=== PATIENT | female | born 2000 | race Caucasian/White ===

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

== ENCOUNTER 2022-03-17 21:57 | Emergency (ER) | payer OTHER ==
--- OUTSIDE RECORDS SUMMARY | 2022-03-17 22:01 | XMS REPORT | Continuity of Care Document ---
:2000 Author Organization [facility] t Address [facility] [place]. [address] [place] [id number] Care Team Providers Name Role Phone MiguelErasto Steven Primary Care Physician Alo Gonsalez Attending Clinician Unavailable Mauricio DUNCAN, Brenda Lara Attending Clinician Unavailable MILAGRO RAY Attending Clinician Unavailable Flor LENS MARKERMilagro Attending Clinician Doctor Unassigned, [place] Attending Clinician Unavailable GO GABBY Attending Clinician Unavailable Green LENS MARKER, Gabby Attending Clinician Ebrahim LENS MARKER, Rania Attending Clinician ADRIANE ENGLAND Attending Clinician Unavailable Jasmin Pyle RN Attending Clinician Unavailable Only, Ang Db Test Attending Clinician Unavailable Stephen Sheikh MD Attending Clinician STEPHEN SHEIKH Attending Clinician Unavailable Adriane England MD Attending Clinician Unknown, Attending Attending Clinician Unavailable Nurse, Akilah Pob Immunization Attending Clinician Unavailable Nadeem Shelby MD Attending Clinician NADEEM SHELBY Attending Clinician Unavailable Nurse, [facility] Attending Clinician Unavailable Monica Lozada MD Attending Clinician RADU KERN Attending Clinician Unavailable AUGUSTUS ETIENNE Attending Clinician Unavailable LV MAST Attending Clinician Unavailable ADRIANE ENGLAND Admitting Clinician Unavailable Alo Gonsalez Admitting Clinician Unavailable Monica Lozada MD Admitting Clinician LV MAST Admitting Clinician Unavailable Payers Payer Name Policy Type Policy Number Effective Date Expiration Date Yanira [employer]UM CHOICE POS [id number] 2020 II 00:00:00 [employer] [place] - [id number] 2018 OUT OF STATE 00:00:00 Problems Condition Condition Condition Status Onset Resolution Last Treating Co mments Source Name Details Category Date Date Treatment Clinician Date Other Other Disease Active Univers depression depression 6-08 it y of 00:00: [address] Obesity Obesity Disease Active Univers (BMI (BMI 4-06 ity of 30-39.9) 30-39.9) 00:00: [place] 00 [facility] Gestationa Gestationa Disease Resolve 2020-08-02 2020-08-02 Univers l l d 2- 00:00:00 14:13:48 [place]y of [place]ens[place] without 00 Me dical significan significan Br anch t t proteinuri proteinuri a, a, Normal Normal Disease Resolve 2020-08-02 2020-08-02 Univers labor labor d 2-07 00:00:00 15:09:02 ity of 00:00: [address] Liveborn Liveborn Disease Resolve 2020-08-02 2020-08-02 Univers , of , of d 2-07 00:00:00 14:13:48 ity of grub[place] grubbs [place]: [place] 00 Me dical born in born in [facility] by vaginal by vaginal delivery delivery 38 weeks 38 weeks Disease Resolve 2020-08-02 2020-08-02 Univers gestation gestation d 7-21 00:00:00 14:13:48 ity of of of 00:00: [place] [facility] High risk High risk Disease Resolve 2020-08-02 2020-08-02 Univers teen teen d 7-21 00:00:00 14:13:48 [place] third 00 Medica l trimester trimester Bran ch Gastroente Gastroente Disease Resolve 2020-06-21 2020-06-21 Univers ritis ritcampbell d 06-15 00:00:00 23:29:09 ity of 00:: [place] 00 Medical [place] Dehydratio Dehydratio Disease Resolve 2020-06-21 2020-06-21 Univers n n d 06-15 00:00:00 23:29:14 ity of 00:: [place] [id number] Medical [place] Allergies, Adverse Reactions, Alerts Allergy Allergy Status Severity Reaction(s) Onset Inactive Treating Comm ents Source Name Type Date Date Clinician No Known DA Active U 2019-0 [facility] No Known DA Active U 2020-0 [facility] Allergie - [facility] 00 [facility] NO KNOWN Drug Active Univers ALLERGIE Class ity of S [facility] Social History Social Habit Start Date Stop Date Quantity Comments Source History SDOH University o f Alcohol Std [place] Medical Drinks Branch History SDWV University o f Alcohol Binge [place] Medic al Branch History SDOH University o f Alcohol Comment [place] Med ical Branch Exposure to 2021-11-04 2021-11-14 Not sure University of SARS-CoV-2 00:00:00 13:53:00 [facility] (event) Branch Alcohol intake 2021-11-14 2021-11-14 Lifetime University of 00:00:00 00:00:00 non-drinker [facility] (finding) Branch Tobacco use and 2021-05-03 2021-05-03 Never used Universit y of exposure 00:00:00 00:00:00 [facility] Tobacco Comment 2021-05-03 2021-05-03 1 cig occasional Uni versity of 00:00:00 00:00:00 [place] [facility] [place] History SDOH 2019-12-08 2019-12-08 1 University o f Alcohol Frequency 00:00:00 00:00:00 [facility] edical [place] Sex Assigned At [birth year] Universit y of 00:00:00 00:00:00 [facility] Branch Smoking Status Start Date Stop Date Source Current some day smoker 2021-05-03 00:00:00 [facility] Never smoker [facility] Branch Medications Ordered Filled Start Stop Current Ordering Indication Dosage Frequency Signature Comments Components Source Medication Medication Date Date Medication? Clinician (SIG) Name Name proMETHazin Yes [id number] 12.5mg Take 1 Univers e 12.5 mg 6-28 tablet by ity o f tablet 00:00: mouth [place] 00 every 6 Medical (six) Branch hours as needed for Nausea and Vomiting (N/V). proMETHazin Yes [id number] 12.5mg Take 1 Univers e 12.5 mg 6-28 tablet by ity o f tablet 00:00: mouth [place] 00 every 6 Medical (six) Branch hours as needed for Nausea and Vomiting (N/V). azithromyci 2021- No [id number] Take 2 Univers n 250 mg 6-28 07-04 tablets by ity of tablet 00:00: 04:59 mouth [place] 00 :00 daily for Medical 1 day, Branch THEN 1 tablet daily for 4 days. azithromyci 2021- No [id number] Take 2 Univers n 250 mg 6-28 07-04 tablets by ity of tablet 00:00: 04:59 mouth [place] 00 :00 daily for Medical 1 day, Branch THEN 1 tablet daily for 4 days. escitalopra Yes [id number] 10mg Take 1 Univers m oxalate 6-08 tablet by ity o f 10 mg 00:00: mouth [place] tablet 00 daily. Medical Branch escitalopra Yes [id number] 10mg Take 1 Univers m oxalate 6-08 tablet by ity o f 10 mg 00:00: mouth [place] tablet 00 daily. Medical Branch escitalopra Yes [id number] 10mg Take 1 Univers m oxalate 6-08 tablet by ity o f 10 mg 00:00: mouth [place] tablet 00 daily. Medical Branch escitalopra Yes [id number] 10mg Take 1 Univers m oxalate 6-08 tablet by ity o f 10 mg 00:00: mouth [place] tablet 00 daily. Medical Branch azithromyci 2020-0 Yes Univer s n 250 mg 6- ity of tablet 00:00: [place] 00 Medical Branch bromphenira 2020-0 Yes Univer s mine-pseudo - ity of ephedrine-D 00:00: [facility] 00 Medical mg/5 mL Branch syrup azithromyci 2020-0 Yes Univer s n 250 mg 6- ity of tablet 00:00: [place] 00 Medical Branch bromphenira 2020-0 Yes Univer s mine-pseudo - ity of ephedrine-D 00:00: [facility] 00 Medical mg/5 mL Branch syrup azithromyci 2020-0 2- No Unive rs n 250 mg 10-20 ity of tablet 00:00: 00:00 [place] 00 :00 Medical Branch bromphenira 2020-0 2- No Unive rs mine-pseudo 10-20- ity of ephedrine-D 00:00: 00:00 [facility] 00 :00 Medical mg/5 mL Branch syrup escitalopra 2020-0 Yes 10mg Take 1 Univers oxalate 4-23 depression tablet by ity of 10 mg 00:00: mouth [place] tablet 00 daily. [facility] Branch Immunizations Ordered Filled Immunization Date Status Comments [facility] e Immunization Name Name SARS-COV-2 COVID-19 2020-09-23 Completed Unive rsity of PFIZER VACCINE 00:00:00 [facility] SARS-COV-2 COVID-19 2020-09-23 Completed Unive rsity of PFIZER VACCINE 00:00:00 [facility] SARS-COV-2 COVID-19 2020-09-23 Completed Unive rsity of PFIZER VACCINE 00:00:00 [facility] SARS-COV-2 COVID-19 2020-09-23 Completed Unive rsity of PFIZER VACCINE 00:00:00 [facility] SARS-COV-2 COVID-19 2020-09-23 Completed Unive rsity of PFIZER VACCINE 00:00:00 [facility] SARS-COV-2 COVID-19 2020-08-31 Completed Unive rsity of PFIZER VACCINE 00:00:00 [place] Medi edilma Branch SARS-COV-2 COVID-19 2020-08-31 Completed Unive rsity of PFIZER VACCINE 00:00:00 [facility] SARS-COV-2 COVID-19 2020-08-31 Completed Unive rsity of PFIZER VACCINE 00:00:00 [facility] SARS-COV-2 COVID-19 2020-08-31 Completed Unive rsity of PFIZER VACCINE 00:00:00 [facility] SARS-COV-2 COVID-19 2020-08-31 Completed Unive rsity of PFIZER VACCINE 00:00:00 [facility] TDAP 2020-04-19 Completed University of 00:00:00 [facility] TDAP 2020-04-19 Completed University of 00:00:00 [facility] TDAP 2020-04-19 Completed University of 00:00:00 [facility] TDAP 2020-04-19 Completed University of 00:00:00 [facility] TDAP 2020-04-19 Completed University of 00:00:00 [facility] Influenza Virus 2020-03-30 Completed Universit y of Vaccine Quad .5 mL 00:00:00 [facility] 6+ MO Branch Influenza Virus 2020-03-30 Completed Universit y of Vaccine [place] .5 mL 00:00:00 [facility] 6+ MO Branch Influenza Virus 2020-03-30 Completed Universit y of Vaccine [place] .5 mL 00:00:00 [facility] 6+ MO Branch Influenza Virus 2020-03-30 Completed Universit y of Vaccine [place] .5 mL 00:00:00 [facility] 6+ MO Branch Influenza Virus 2020-03-30 Completed Universit y of Vaccine [place] .5 mL 00:00:00 [facility] 6+ MO Branch Vital Signs Vital Name Observation Time Observation Value Comments Source Systolic blood 2021-11-14 19:02:00 128 mm[Hg] Univer sity of pressure [facility] Diastolic blood 2021-11-14 19:02:00 85 mm[Hg] Unive rsity of pressure [facility] Heart rate 2021-11-14 19:02:00 84 /min Universi ty [facility] Body temperature 2021-11-14 19:02:00 36.94 Marta [facility] Respiratory rate 2021-11-14 19:02:00 17 /min [facility] Body height 2021-11-14 19:02:00 144.8 cm Universi ty of [place] [facility] Body weight 2021-11-14 19:02:00 79.039 kg Universi ty of [place] [facility] BMI 2021-11-14 19:02:00 37.71 kg/m2 Universi ty [facility] Body mass index 2021-11-14 19:02:00 98.10 % Unive rsity of (BMI) [Percentile] [place] Med ical Per age and sex Branch Oxygen saturation in 2021-11-14 19:02:00 99 /min University of Arterial blood by [place] XD Nutrition edilma Pulse oximetry Branch Systolic blood 2021-10-11 19:21:00 126 mm[Hg] Univer sity of pressure [facility] Diastolic blood 2021-10-11 19:21:00 89 mm[Hg] Unive rsity of pressure [facility] Heart rate 2021-10-11 19:21:00 98 /min [facility] Body temperature 2021-10-11 19:21:00 37.11 Marta [facility] Respiratory rate 2021-10-11 19:21:00 16 /min Univ [facility] Body height 2021-10-11 19:21:00 144.8 cm Universi ty [facility] Medical [place] Body weight 2021-10-11 19:21:00 79.89 kg Universi ty [facility] Medical [place] BMI 2021-10-11 19:21:00 38.11 kg/m2 Universi [facility] Body mass index 2021-10-11 19:21:00 98.22 % Unive rsity of (BMI) [Percentile] [place] Med ical Per age and sex Branch Oxygen saturation in 2021-10-11 19:21:00 97 /min University of Arterial blood by [facility] Pulse oximetry Branch Procedures Procedure Date / Time Performed Performing Clinician Sour e ASSIGNMENT OF BENEFITS 2021-11-14 18:55:13 Doctor Unassigned, No [facility] SARS-COV-2 COVID-19 2020-09-23 15:07:29 Doctor Unassigned, No [facility] V[facility],0.3[facility],IM Name Medical [place] (PFIZER) Plan of Care Planned Activity Planned Date Details Comments Source Future Scheduled 2021-06-[address] [facility] Test 00:00:00 Chlamydia trachomatis Medica l Branch (procedure) [code = [id number]] Future Scheduled 2020-05-17 DTaP,Tdap,and Td Univers ity [facility] Test 00:00:00 Vaccines (2 - Td) Medical Br anch [code = DTaP,Tdap,and Td Vaccines (2 - Td)] Future Scheduled 2018 MENINGOCOCCAL VACCINE Un iversity [facility] Test 00:00:00 (1 - 2-dose series) Medical Branch [code = MENINGOCOCCAL VACCINE (1 - 2-dose series)] Future Scheduled 2014 [facility] (procedure) [code = Medical Branch [id number]] Future Scheduled 2014 Depression screening Uni versity [facility] Test 00:00:00 (procedure) [code = Medical Branch [id number]] Future Scheduled 2013 HPV VACCINES (1 - Univer sity [facility] Test 00:00:00 2-dose series) [code = Medic al Branch HPV VACCINES (1 - 2-dose series)] Future Scheduled 2012 MENINGOCOCCAL B Universi [facility] [facility] Test 00:00:00 VACCINES (1 of 2 - Medical B ranch Risk Bexsero 2-dose series) [code = MENINGOCOCCAL B VACCINES (1 of 2 - Risk Bexsero 2-dose series)] Future Scheduled 2003-08-16 HEPATITIS A VACCINES Uni versity of [place] Test 00:00:00 (1 of 2 - 2-dose Medical Bra [facility] series) [code = HEPATITIS A VACCINES (1 of 2 - 2-dose series)] Future Scheduled 2003-08-16 MMR VACCINES (1 of 2 - U niversity [facility] Test 00:00:00 Standard series) [code Medic al Branch = MMR VACCINES (1 of 2 - Standard series)] Future Scheduled 2003-08-16 VARICELLA VACCINES (1 Un iversity of [place] Test 00:00:00 of 2 - 2-dose Medical Branch childhood series) [code = VARICELLA VACCINES (1 of 2 - 2-dose childhood series)] Future Scheduled 2002 HEPATITIS B VACCINES Uni versity [facility] Test 00:00:00 (1 of 3 - 3-dose Medical Bra [facility] primary series) [code = HEPATITIS B VACCINES (1 of 3 - 3-dose primary series)] Encounters Start End Encounter Admission Attending Care Care Encounter Source Date/Time Date/Time Type Type Clinicians Facility Department ID 2021-03-18 [facility] ED[facility] [id number] Univers 20:10:05 ity of [facility] 2021-03-18 Outpatient P [facility] ED[facility]IE [id number] Univers 20:03:57 ity of [facility] 2019-11-15 Inpatient EM Wallace, [facility] [id number] [facility] 18:50:00 Alo 50 Woman' s [facility] 2021-11-15 2021-11-15 Telephone EDWAR Martínez [id number] Univers 00:00:00 00:00:00 Brenda THRASHER [id number] i ty of [facility] [id number] [place] as [phone] [facility] 019 [place] 2021-11-14 2021-11-14 Outpatient R FLOR [facility] [id number] Univers 14:00:00 14:29:58 MILAGRO marley o f [facility] 2021-11-14 2021-11-14 Urgent Flor [facility] [id number] Univers 14:00:00 14:20:00 Care [facility] [id number] i ty of [place] [id number] [place] as NEENA?BLEA [phone] [address] MEDICAL OFFICE BUILDING 2021-11-14 2021-11-14 Orders Doctor EDWAR [id number] Univers 00:00:00 00:00:00 Only Unassigned, ANNA MARIE [id number] ity of [place] [facility] 4.2.7.2.686 [place] as [phone] [facility] 009 [place] 2021-10-11 2021-10-11 Outpatient R GO [facility] [id number] Univers 14:20:00 14:44:09 GABBY itluz [facility] 2021-10-11 2021-10-11 Urgent Gabby Stiles [facility] [id number] Univers 14:20:00 14:44:09 Care Arti Montiel [facility] [id number] ity of [place] [id number] [place] as NEENA?BLEA [id number] [address] MEDICAL OFFICE BUILDING 2021-10-11 2021-10-11 Outpatient R GO [facility] [id number] Univers 14:20:00 14:44:09 GABBY ity [facility] 2021-10-11 2021-10-11 Orders Doctor VANN [id number] Univers 00:00:00 00:00:00 Only Unassigned, ANNA MARIE [id number] ity of [place] [facility] 4.2.7.2.686 [place] as [phone] [address] 2021-09-05 2021-09-05 [facility] [id number] Univers 13:00:00 13:00:00 [facility] 2021-06-07 2021-06-07 Telephone EDWAR Pyle [id number] Univers 00:00:00 00:00:00 Jasmin THRASHER [id number] it y of [facility] 4.2.7.2.686 [place] as [id number] [address] 2021-06-05 2021-06-05 Laboratory Only, Ang Db Test [facility] [id number] Univers 14:15:00 14:30:00 Only Aguilar Stephen [facility] [id number] ity of [place] 4.2.7.2.686 [place] as NEENA?BLEA [id number] [address] MEDICAL OFFICE [facility] 2021-06-05 2021-06-05 Outpatient R AGUILAR [facility] [id number] Univers 14:15:00 14:27:42 STEPHEN [facility] 2021-06-05 2021-06-05 [facility] [id number] Univers 14:15:00 14:15:00 [facility] 2021-05-03 2021-05-03 Outpatient R EAGLE [facility] [id number] Univers 15:00:00 15:57:50 ADRIANE ity [facility] 2021-05-03 2021-05-03 Office Ad, [facility] [id number] Univers 15:00:00 15:57:50 Visit Adriane YOUNG [id number] ity [facility] 4.2.7.2.686 [place] PROFESS[place] [phone] Ne dical [facility] 134 Branch BUILDING 2021-05-03 2021-05-03 Outpatient R EAGLE, [facility] [id number] Univers 15:00:00 15:57:50 ADRIANE ity [facility] 2021-04-24 2021-04-24 Outpatient R FLOR [facility] [id number] Univers 15:20:00 18:23:19 MILAGRO marley o [facility] 2021-04-24 2021-04-24 Outpatient R FLOR [facility] [id number] Univers 15:20:00 18:23:19 MILAGRO paigey o [facility] 2021-04-24 2021-04-24 [facility] 1.2.840. [id number] Univers 15:22:18 15:42:18 Care Unknown, Attending HEALTH [id number] ity of [place] 4.2.7.2.686 [place] as NEENA?BLEA [id number] Ne dical KNEY [address] [place] MEDICAL OFFICE BUILDING 2021-04-24 2021-04-24 Orders Doctor EDWAR [id number] Univers 00:00:00 00:00:00 Only Unassigned, ANNA MARIE [id number] ity [place] [facility] 4.2.7.2.686 [place] as [id number] [address] 2020-12-17 2020-12-17 Outpatient R GO [facility] [id number] Univers 11:20:00 11:48:42 GABBY ity [facility] 2020-12-17 2020-12-17 Outpatient Ish STILES [facility] [id number] Univers 11:20:00 11:20:00 GABBY ity [facility] 2020-12-17 2020-12-17 Outpatient R GREEN, [facility] [id number] Univers 10:20:00 10:20:00 GABBY [facility] 2020-12-16 2020-12-16 Outpatient R ADUM, [facility] [id number] Univers 15:30:00 15:30:00 ADRIANE [facility] 2020-10-25 2020-10-25 Outpatient R ADUM, [facility] [id number] Univers 11:00:00 11:00:00 ADRIANE [facility] 2020-10-07 2020-10-07 Outpatient R ADUM, [facility] [id number] Univers 10:00:00 10:00:00 [facility] 2020-09-23 2020-09-23 Outpatient R VIKI, [facility] [id number] Univers 10:00:00 10:00:00 NADEEM [facility] 2020-09-09 2020-09-09 Outpatient R ADUM, [facility] [id number] Univers 10:30:00 10:30:00 [facility] 2020-08-31 2020-08-31 Outpatient [facility] [id number] Univers 10:10:00 10:10:00 [facility] 2020-08-23 2020-08-23 Outpatient R ADUM, [facility] [id number] Univers 13:00:00 13:00:00 ADRIANE [facility] 2020-08-02 2020-08-02 Outpatient R ADUM, [facility] [id number] Univers 08:00:00 08:00:00 ADRIANE [facility] 2020-07-20 2020-07-20 Outpatient R ADUM, [facility] [id number] Univers 16:00:00 16:00:00 [facility] 2020-07-11 2020-07-11 Nurse Nurse, [facility] [id number] 14:07:01 14:40:03 Visit [facility] [place] [id number] [facility] 4.2.7.2.686 Professio [phone] [address] 2020-07-11 2020-07-11 Outpatient R [facility] [id number] Univers 14:00:00 14:00:00 [facility] 2020-06-30 2020-06-30 Telephone Adum, [facility] [id number] 00:00:00 00:00:00 Adriane Molina [place] [id number] [place] 4.2.7.2.686 Professio [id number] [address] 2020-06-26 2020-06-28 Hospital Adchevy, Adriane Molina [facility] [id number] 05:40:00 19:30:00 Encounter Monica Lozada [id number] [place] 4.2.7.2.686 [place] [id number] 2020-06-28 2020-06-28 Outpatient R [facility] [id number] Univers 11:15:00 11:15:00 [facility] 2020-06-21 2020-06-21 Routine Ad, [facility] [id number] 16:04:12 16:59:00 Adriane Molina [place] [id number] Visit [place] 4.2.7.2.686 Professio [id number] [address] 2020-06-21 2020-06-21 Outpatient R AD, [facility] [id number] Univers 16:00:00 16:00:[facility] 2020-06-14 2020-06-14 Routine Ad, [facility] [id number] 16:12:46 17:34:28 Adriane Molina [place] [id number] Visit [place] 4.2.7.2.686 Professio [id number] [address] 2020-06-14 2020-06-14 Outpatient R AD, [facility] [id number] Univers 16:15:00 16:15:00 ADRIANE [facility] 2020-06-01 2020-06-01 Outpatient R ADUM, [facility] [id number] Univers 11:30:00 11:30:00 ADRIANE itluz [facility] 2020-05-31 2020-05-31 Outpatient R EMMETTAN, [facility] [id number] Univers 11:30:00 11:30:00 RADU marley [facility] 2020-05-17 2020-05-17 Outpatient R ADUM, [facility] [id number] Univers 16:00:00 16:00:00 [facility] 2020-05-03 2020-05-03 Outpatient R ADUM, [facility] [id number] Univers 16:15:00 16:15:00 ADRIANE [facility] 2020-04-28 2020-04-28 Outpatient R [facility] [id number] Univers 13:00:00 13:00:00 ity [facility] 2020-04-19 2020-04-19 Outpatient R ADUM, [facility] [id number] Univers 11:00:00 11:00:00 ADRIANE [facility] 2020-04-18 2020-04-18 Outpatient R ADUM, [facility] [id number] Univers 13:00:00 13:00:00 ADRIANE [facility] 2020-03-30 2020-03-30 Outpatient R ADUM, [facility] [id number] Univers 11:30:00 11:30:00 ADRIANE [facility] 2020-03-03 2020-03-03 Outpatient R [facility] [id number] Univers 15:00:00 15:00:00 ity [facility] 2020-03-02 2020-03-02 Outpatient R ADUM, [facility] [id number] Univers 13:30:00 13:30:00 ADRIANE [facility] 2020-03-01 2020-03-01 Outpatient R ADUM, [facility] [id number] Univers 16:00:00 16:00:00 ADRIANE [facility] 2020-02-29 2020-02-29 Outpatient R [facility] [id number] Univers 16:15:00 16:15:00 ity [facility] 2020-02-08 2020-02-08 Outpatient P [facility] [id number] [facility] 13:00:00 [facility] 2020-02-03 Outpatient R [facility] [id number] Univers 15:15:00 15:15:00 [facility] 2020-02-02 2020-02-02 Outpatient [facility] [id number] Univers 13:00:00 13:00:00 [facility] 2020-02-01 2020-02-01 Outpatient R LOWELL, [facility] [id number] Univers 15:30:00 15:30:00 [place] [facility] 2020-01-06 2020-01-06 Outpatient R [facility] [id number] Univers 11:30:00 11:30:00 [facility] 2020-01-05 2020-01-05 Outpatient R [facility] [id number] Univers 16:30:00 16:30:00 [facility] 2019-12-09 2019-12-09 Outpatient R [facility] [id number] Univers 14:30:00 14:30:00 [facility] 2019-12-08 2019-12-08 Outpatient [facility] [id number] Univers 14:00:00 14:00:00 [facility] 2019-07-08 2019-07-08 [id number] Univers 00:00:00 00:00:00 LV [facility] 2019-06-22 2019-06-22 [facility] [id number] Univers 15:19:11 23:59:00 [facility] Results Test Description Test Time Test Comments Results Result Comments Source AG HEPATITIS B SURFACE 2019-11-16 14:32:00 Test Item Value Reference Range Interpretation Comme nts AG HEPATITIS B SURFACE (test code = HBSAG) NONREACTIVE NONREACTIVE AB HEPATITIS C [id number] 14:32:00 Test Item Value Reference Range Interpretation Comments AB HEPATITIS C (test code = NONREACTIVE NONREACTIVE HCVAB) SIGNAL TO CUTOFF (test code = <0.02 <0.80 N CUTOFF) AB [id number] 14:32:00 Test Item Value Reference Range Interpretation Comments AB TREPONEMA (test code = TREPAB) NONREACTIVE NONREACTIVE AG HEPATITIS B [id number] 13:39:00 Test Item Value Reference Range Interpretation Comments AG HEPATITIS B SURFACE (test code NONREACTIVE NONREACTIVE = HBSAG) AB HEPATITIS C [id number] 13:39:00 Test Item Value Reference Range Interpretation Comments AB HEPATITIS C (test code = HCVAB) NONREACTIVE SIGNAL TO CUTOFF (test code = CUTOFF) <0.80 AB [id number] 13:39:00 Test Item Value Reference Range Interpretation Comments AB TREPONEMA (test code = TREPAB) NONREACTIVE NONREACTIVE URINALYSIS [id number] 13:33:00 Test Item Value Reference Range Interpretation [...] = MUCU) RARE NONE SEEN CBC W/AUTO [id number] 13:03:00 Test Item Value Reference Range Interpretation [...] code = PLTMR) - MRI PELVIS W/O [id number] 21:41:00 Patient Name: RAAD BERKOWITZ Unit No: [id number] EXAMS: CPT CODE: [id number] MRI PELVIS W/O CONTRAST [id number] PROCEDURE: MRI ABDOMEN WITHOUT CONTRAST INDICATION: 19-year-old [...] regional inflammatory change. The visualized bowel is otherwise unremarkable. There is no free intraperitoneal fluid or focal fluid collection. Examination ultrasound for survey of the upper abdominal viscera. Visualized portions of the liver, gallbladder, pancreas, spleen and kidneys are unremarkable. There is no hydronephrosis or perinephric fluid collection. Examination not designed for survey of the gravid uterus. Circumscribed fluid collection in the endometrial cavity compatible with 1st trimester intrauterine . Cervix appears closed. The right ovary measures 2.2 x 1.7 x 1.8 cm. Normal morphology with small follicles. The left ovary measures 2.5 x 2.1 x 1.9 cm. Probable corpus sodium within substance of the ovary to be correlated with sonographic findings. Additional comments:No free intraperitoneal fluid. IMPRESSION: 1. No MRI evidence for appendicitis. 2. No acute abnormality demonstrated to account for the patient's symptoms. SL: LADY at 214 Reported and signed by: Saqib Hendirckson MD CC: Alo Razo Technologist: Hailey Silva, RT,MR,CT Trnscrbd D/ (2140) Min Orig Print D/T: S: 11/15/2019 (2143) [facility] NAME: WOORAAD CARMENZA Radiology Department PHYS: Alo Hamm [address] : 2000 AGE: 19 SEX: F [place], [place] [address] LOC: [id number] PHONE #: [phone] EXAM DATE: 11/15/2019 STATUS: ADM IN FAX #: [phone] RAD NO: Page 1 Signed Report
--- NOTE | 2022-03-17 22:11 | ER ---
Nurse's Notes [facility] Name: Edson Juarez Age: 21 yrs Sex: Female : 2000 Arrival Date: 03/17/2022 Time: 22:00 Bed Waiting Private MD: Diagnosis: Presentation: 03/17 22:05 Chief complaint: Patient states: "I have always had back pain, but I have never gone to tw the doctor for it. It hurts worse since they gave me an epidural in June of 2020. Today the pain was so bad that I felt nauseous.". Coronavirus screen: Vaccine status: Patient reports receiving the 2nd dose of the covid vaccine. [employer]. Ebola Screen: Patient negative for fever greater than or equal to 101.5 degrees Fahrenheit, and additional compatible Ebola Virus Disease symptoms Patient denies exposure to infectious person. Patient denies travel to an Ebola-affected area in the 21 days before illness onset. Initial Sepsis Screen: Does the patient meet any 2 criteria? No. Patient's initial sepsis screen is negative. Does the patient have a suspected source of infection? No. Patient's initial sepsis screen is negative. Risk Assessment: Do you want to hurt yourself or someone else? Patient reports no desire to harm self or others. Onset of symptoms is unknown. 22:05 Method Of Arrival: Ambulatory tw5 22:05 Acuity: JOSE F 4 tw5 Triage Assessment: 22:07 General: Appears uncomfortable, Behavior is calm, cooperative. Pain: Pain at worst was tw5 10 out of 10 on a pain scale. Musculoskeletal: Range of motion: intact in all extremities. 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 - Social history:: Smoking status: Patient reports the use of cigarette tobacco products, denies chronic smoking, but will smoke occasionally, Reported history of juuling and/or vaping. Assessment: 22:09 General: Reports "I think I am just going to put a heating pad and maybe come back tw5 tomorrow. I cannot wait for a room.". Vital Signs: 22:05 BP 125 / 79; Pulse 77; Resp 18; Temp 98.5; Pulse Ox 100% ; Weight 74.84 kg; Height 4 tw5 ft. 10 in. (147.32 cm); Pain 4/10; 22:05 Body Mass Index 34.48 (74.84 kg, 147.32 cm) tw5 ED Course: 22:00 Patient arrived in ED. bp1 22:07 Triage completed. tw5 22:07 Arm band placed on. tw5 Administered Medications: No medications were administered Outcome: 22:10 Patient left the ED. tw5 Signatures: Milagro Alexander bp1 Kiana Salcedo tw5
[2022-03-17 22:34] VITALS: BP 125/79; TEMP 98.5; O2SAT 100
== END 2022-03-17 22:10 | disposition left against medical advice (07) ==
LOC: ER 21:57
DX: Z53.21 Procedure and treatment not carried out due to patient leaving prior to being seen by health care provider (principal)
CPT/HCPCS: 99281

== ENCOUNTER 2022-03-18 11:30 | Emergency (ER) | payer OTHER ==
--- OUTSIDE RECORDS SUMMARY | 2022-03-18 11:37 | XMS REPORT | Continuity of Care Document ---
:2000 Author Organization [facility] t Address [facility] [place]. [address] [place] [id number] Care Team Providers Name Role Phone MiguelErasto Steven Primary Care Physician Alo Gonsalez Attending Clinician Unavailable Mauricio DUNCAN, Brenda Lara Attending Clinician Unavailable MILAGRO RAY Attending Clinician Unavailable Flor SEED CLEANING MANAGERMilagro Attending Clinician Doctor Unassigned, [place] Attending Clinician Unavailable GO GABBY Attending Clinician Unavailable Green SEED CLEANING MANAGER, Gabby Attending Clinician Ebrahim SEED CLEANING MANAGER, Rania Attending Clinician ADRIANE ENGLAND Attending Clinician [...] Date Expiration Date Yanira 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 CHOICE POS [id number] 2020 II 00:00:00 [employer] [place] - [id number] 2018 OUT OF STATE 00:00:00 Problems Condition Condition Condition Status Onset Resolution Last Treating Co mments Source Name Details Category Date Date Treatment Clinician Date Other Other Disease Active Univers depression depression 6-08 it y of 00:00: [address] Obesity Obesity Disease Active Univers (BMI (BMI 4-06 ity of 30-39.9) 30-39.9) 00:00: [place] 00 [facility] Gestationa Gestationa Disease Resolve 2020-08-02 2020-08-02 Univers l l d 2- 00:00:00 14:13:48 ity of hypertens[place]ens[place] without 00 Me dical significan significan Br anch t t proteinuri proteinuri a, a, Normal Normal Disease Resolve 2020-08-02 2020-08-02 Univers labor labor d 2-07 00:00:00 15:09:02 ity of 00:00: [address] Liveborn Liveborn Disease Resolve 2020-08-02 2020-08-02 Univers , of , of d 2-07 00:00:00 14:13:48 ity of grubbs grubbs 00:00: [place] , 00 Me dical born in born in [facility] by vaginal by vaginal delivery delivery 38 weeks 38 weeks Disease Resolve 2020-08-02 2020-08-02 Univers gestation gestation d 7-21 00:00:00 14:13:48 ity of of of 00:00: [place] 00 [facility] High risk High risk Disease Resolve 2020-08-02 2020-08-02 Univers teen teen d 7-21 00:00:00 14:13:48 [place] third 00 Medica l trimester trimester Bran ch Gastroente Gastroente Disease Resolve 2020-06-21 2020-06-21 Univers ritis ritcampbell d 06-15 00:00:00 23:29:09 ity of 00:: [place] 00 [place] Dehydratio Dehydratio Disease Resolve 2020-06-21 2020-06-21 Univers n n d 06-15 00:00:00 23:29:14 ity of 00:: [place] [id number] Medical [place] Allergies, Adverse Reactions, Alerts Allergy Allergy Status Severity Reaction(s) Onset Inactive Treating Comm ents Source Name Type Date Date Clinician No Known DA Active U 2019-0 [facility] No Known DA Active U 2020-0 [facility] Allergie - [facility] 00:[facility]: [facility] 00 [facility] NO KNOWN Drug Active Univers ALLERGIE Class ity of S [facility] Social History Social Habit Start Date Stop Date Quantity Comments Source History SDOH University o f Alcohol Std [place] Medical Drinks Branch History SDPA University o f Alcohol Binge [place] Medic al Branch History SDOH University o f Alcohol Comment [place] Med ical Branch Exposure to 2021-11-04 2021-11-14 Not sure University of SARS-CoV-2 00:00:00 13:53:00 [facility] (event) Branch Alcohol intake 2021-11-14 2021-11-14 Lifetime University of 00:00:00 00:00:00 non-drinker [facility] (finding) Branch Tobacco use and 2021-05-03 2021-05-03 Never used Universit y of exposure 00:00:00 00:00:00 [facility] Tobacco Comment 2021-05-03 2021-05-03 1 cig occasional Uni versity of 00:00:00 00:00:00 [place] History SDOH 2019-12-08 2019-12-08 1 University o f Alcohol Frequency 00:00:00 00:00:00 [facility] edical [place] Sex Assigned At [birth year] Universit y of 00:00:00 00:00:00 [facility] Branch Smoking Status Start Date Stop Date Source Current some day smoker 2021-05-03 00:00:00 [facility] Never smoker [facility] Branch Medications Ordered Filled Start Stop Current Ordering Indication Dosage Frequency Signature Comments Components Source Medication Medication Date Date Medication? Clinician (SIG) Name Name proMETHazin Yes [id number] 12.5mg Take 1 Univers e 12.5 mg 6-28 tablet by ity o f tablet 00:00: mouth [place] 00 every 6 Medical (six) Branch hours as needed for Nausea and Vomiting (N/V). proMETHazin Yes [id number] 12.5mg Take 1 Univers e 12.5 mg 6-28 tablet by ity o f tablet 00:00: mouth [place] 00 every 6 Medical (six) Branch hours as needed for Nausea and Vomiting (N/V). azithromyci 2021- No [id number] Take 2 Univers n 250 mg 6-28 07-04 tablets by ity of tablet 00:00: 04:59 mouth [place] 00 :00 daily for Medical 1 day, Branch THEN 1 tablet daily for 4 days. azithromyci 2021- No [id number] Take 2 Univers n 250 mg 6-28 07-04 tablets by ity of tablet 00:00: 04:59 mouth [place] 00 :00 daily for Medical 1 day, Branch THEN 1 tablet daily for 4 days. escitalopra Yes [id number] 10mg Take 1 Univers m oxalate 6-08 tablet by ity o f 10 mg 00:00: mouth [place] tablet 00 daily. Medical Branch escitalopra Yes [id number] 10mg Take 1 Univers m oxalate 6-08 tablet by ity o f 10 mg 00:00: mouth [place] tablet 00 daily. Medical Branch escitalopra Yes [id number] 10mg Take 1 Univers m oxalate 6-08 tablet by ity o f 10 mg 00:00: mouth [place] tablet 00 daily. Medical Branch escitalopra Yes [id number] 10mg Take 1 Univers m oxalate 6-08 tablet by ity o f 10 mg 00:00: mouth [place] tablet 00 daily. Medical Branch azithromyci 2020-0 Yes Univer s n 250 mg 6- ity of tablet 00:00: [place] 00 Medical Branch bromphenira 2020-0 Yes Univer s mine-pseudo - ity of ephedrine-D 00:00: [facility] 00 Medical mg/5 mL Branch syrup azithromyci 2020-0 Yes Univer s n 250 mg 6- ity of tablet 00:00: [place] 00 Medical Branch bromphenira 2020-0 Yes Univer s mine-pseudo - ity of ephedrine-D 00:00: [facility] 00 Medical mg/5 mL Branch syrup azithromyci 2020-0 2- No Unive rs n 250 mg 10-20 ity of tablet 00:00: 00:00 [place] 00 :00 Medical Branch bromphenira 2020-0 2- No Unive rs mine-pseudo 10-20- ity of ephedrine-D 00:00: 00:00 [facility] 00 :00 Medical mg/5 mL Branch syrup escitalopra 2020-0 Yes 10mg Take 1 Univers oxalate 4-23 depression tablet by ity of 10 mg 00:00: mouth [place] tablet 00 daily. [facility] Branch Immunizations Ordered Filled Immunization Date Status Comments [facility] e Immunization Name Name SARS-COV-2 COVID-19 2020-09-23 Completed Unive rsity of PFIZER VACCINE 00:00:00 [facility] SARS-COV-2 COVID-19 2020-09-23 Completed Unive rsity of PFIZER VACCINE 00:00:00 [facility] SARS-COV-2 COVID-19 2020-09-23 Completed Unive rsity of PFIZER VACCINE 00:00:00 [facility] SARS-COV-2 COVID-19 2020-09-23 Completed Unive rsity of PFIZER VACCINE 00:00:00 [facility] SARS-COV-2 COVID-19 2020-09-23 Completed Unive rsity of PFIZER VACCINE 00:00:00 [facility] SARS-COV-2 COVID-19 2020-08-31 Completed Unive rsity of PFIZER VACCINE 00:00:00 [place] Medi edilma Branch SARS-COV-2 COVID-19 2020-08-31 Completed Unive rsity of PFIZER VACCINE 00:00:00 [facility] SARS-COV-2 COVID-19 2020-08-31 Completed Unive rsity of PFIZER VACCINE 00:00:00 [facility] SARS-COV-2 COVID-19 2020-08-31 Completed Unive rsity of PFIZER VACCINE 00:00:00 [facility] SARS-COV-2 COVID-19 2020-08-31 Completed Unive rsity of PFIZER VACCINE 00:00:00 [facility] TDAP 2020-04-19 Completed University of 00:00:00 [facility] TDAP 2020-04-19 Completed University of 00:00:00 [facility] TDAP 2020-04-19 Completed University of 00:00:00 [facility] TDAP 2020-04-19 Completed University of 00:00:00 [facility] TDAP 2020-04-19 Completed University of 00:00:00 [facility] Influenza Virus 2020-03-30 Completed Universit y of Vaccine Quad .5 mL 00:00:00 [facility] 6+ MO Branch Influenza Virus 2020-03-30 Completed Universit y of Vaccine Quad .5 mL 00:00:00 [facility] 6+ MO Branch Influenza Virus 2020-03-30 Completed Universit y of Vaccine Quad .5 mL 00:00:00 [facility] 6+ MO Branch Influenza Virus 2020-03-30 Completed Universit y of Vaccine [place] .5 mL 00:00:00 [facility] 6+ MO Branch Influenza Virus 2020-03-30 Completed Universit y of Vaccine Quad .5 mL 00:00:00 [facility] 6+ MO Branch Vital Signs Vital Name Observation Time Observation Value Comments Source Systolic blood 2021-11-14 19:02:00 128 mm[Hg] Univer sity of pressure [facility] Diastolic blood 2021-11-14 19:02:00 85 mm[Hg] Unive rsity of pressure [facility] Heart rate 2021-11-14 19:02:00 84 /min Universi ty [facility] Body temperature 2021-11-14 19:02:00 36.94 [facility] Respiratory rate 2021-11-14 19:02:00 17 /min [facility] Body height 2021-11-14 19:02:00 144.8 cm Universi ty of [place] [facility] Body weight 2021-11-14 19:02:00 79.039 kg Universi ty of [place] [facility] BMI 2021-11-14 19:02:00 37.71 kg/m2 Universi ty [facility] Body mass index 2021-11-14 19:02:00 98.10 % Unive rsity of (BMI) [Percentile] [place] Med ical Per age and sex Branch Oxygen saturation in 2021-11-14 19:02:00 99 /min University of Arterial blood by [place] MyAGENT edilma Pulse oximetry Branch Systolic blood 2021-10-11 19:21:00 126 mm[Hg] Univer sity of pressure [facility] Diastolic blood 2021-10-11 19:21:00 89 mm[Hg] Unive rsity of pressure [facility] Heart rate 2021-10-11 19:21:00 98 /min [facility] Body temperature 2021-10-11 19:21:00 37.11 [facility] Respiratory rate 2021-10-11 19:21:00 16 /min Univ [facility] Body height 2021-10-11 19:21:00 144.8 cm Universi ty [facility] Medical [place] Body weight 2021-10-11 19:21:00 79.89 kg Universi ty [facility] [place] BMI 2021-10-11 19:21:00 38.11 kg/m2 Universi [facility] Body mass index 2021-10-11 19:21:00 98.22 % Unive rsity of (BMI) [Percentile] [place] Med ical Per age and sex Branch Oxygen saturation in 2021-10-11 19:21:00 97 /min University of Arterial blood by [facility] Pulse oximetry Branch Procedures Procedure Date / Time Performed Performing Clinician Sour e ASSIGNMENT OF BENEFITS 2021-11-14 18:55:13 Doctor Unassigned, No [facility] SARS-COV-2 COVID-19 2020-09-23 15:07:29 Doctor Unassigned, No [facility] VACCINE,0.3ML,IM Name [place] (PFIZER) Plan of Care Planned Activity Planned Date Details Comments Source Future Scheduled 2021-06-21 Screening for [facility] Test 00:00:00 Chlamydia trachomatis Medica l Branch (procedure) [code = [id number]] Future Scheduled 2020-05-17 DTaP,Tdap,and Td Univers ity [facility] Test 00:00:00 Vaccines (2 - Td) Medical Br anch [code = DTaP,Tdap,and Td Vaccines (2 - Td)] Future Scheduled 2018 MENINGOCOCCAL VACCINE Un iversity [facility] Test 00:00:00 (1 - 2-dose series) Medical Branch [code = MENINGOCOCCAL VACCINE (1 - 2-dose series)] Future Scheduled 2014 [facility] (procedure) [code = Medical Branch [id number]] Future Scheduled 2014 Depression screening Uni versity [facility] Test 00:00:00 (procedure) [code = Medical Branch [id number]] Future Scheduled 2013 HPV VACCINES (1 - Univer sity [facility] Test 00:00:00 2-dose series) [code = Medic al Branch HPV VACCINES (1 - 2-dose series)] Future Scheduled 2012 MENINGOCOCCAL B Universi [facility] Test 00:00:00 VACCINES (1 of 2 - Medical B ranch Risk Bexsero 2-dose series) [code = MENINGOCOCCAL B VACCINES (1 of 2 - Risk Bexsero 2-dose series)] Future Scheduled 2003-08-16 HEPATITIS A VACCINES Uni versity of [place] Test 00:00:00 (1 of 2 - 2-dose Medical Bra [facility] series) [code = HEPATITIS A VACCINES (1 of 2 - 2-dose series)] Future Scheduled 2003-08-16 MMR VACCINES (1 of 2 - U niversity [facility] Test 00:00:00 Standard series) [code Medic al Branch = MMR VACCINES (1 of 2 - Standard series)] Future Scheduled 2003-08-16 VARICELLA VACCINES (1 Un iversity of [place] Test 00:00:00 of 2 - 2-dose Medical Branch childhood series) [code = VARICELLA VACCINES (1 of 2 - 2-dose childhood series)] Future Scheduled 2002 HEPATITIS B VACCINES Uni versity [facility] Test 00:00:00 (1 of 3 - 3-dose Medical Bra [facility] primary series) [code = HEPATITIS B VACCINES (1 of 3 - 3-dose primary series)] Encounters Start End Encounter Admission Attending Care Care Encounter Source Date/Time Date/Time Type Type Clinicians Facility Department ID 2021-03-18 Outpatient P [facility] EDDIE [id number] Univers 20:10:05 ity of [facility] 2021-03-18 Outpatient P [facility] EDDIE [id number] Univers 20:03:57 ity of [facility] 2019-11-15 Inpatient EM Wallace, [facility] [id number] [facility] 18:50:00 Alo 50 Woman' s [facility] 2021-11-15 2021-11-15 Telephone EDWAR Martínez [id number] Univers 00:00:00 00:00:00 Brenda THRASHER [id number] i ty of [facility] [id number] [place] as [phone] [facility] 019 [place] 2021-11-14 2021-11-14 Outpatient R FLOR [facility] [id number] Univers 14:00:00 14:29:58 MILAGRO marley o f [facility] 2021-11-14 2021-11-14 Urgent Flor [facility] [id number] Univers 14:00:00 14:20:00 Care [facility] [id number] i ty of [place] 4.2.7.2.686 [place] as NEENA?BLEA [phone] [address] MEDICAL OFFICE BUILDING 2021-11-14 2021-11-14 Orders Doctor EDWAR [id number] Univers 00:00:00 00:00:00 Only Unassigned, ANNA MARIE [id number] ity of [place] [facility] [id number] [place] as [id number] [facility] 009 [place] 2021-10-11 2021-10-11 Outpatient R GO [facility] [id number] Univers 14:20:00 14:44:[address] [facility] 2021-10-11 2021-10-11 Urgent Gabby Stiles [facility] [id number] Univers 14:20:00 14:44:09 Care Arti Montiel [facility] [id number] ity of [place] [id number] [place] as NEENA?BLEA [id number] [address] MEDICAL OFFICE BUILDING 2021-10-11 2021-10-11 Outpatient R GO [facility] [id number] Univers 14:20:00 14:44:[address] [facility] 2021-10-11 2021-10-11 Orders Doctor VANN [id number] Univers 00:00:00 00:00:00 Only Unassigned, ANNA MARIE [id number] ity of [place] [facility] 4.2.7.2.686 [place] as [id number] [address] 2021-09-05 2021-09-05 [facility] [id number] Univers 13:00:00 13:00:00 [facility] 2021-06-07 2021-06-07 Telephone EDWAR Pyle [id number] Univers 00:00:00 00:00:00 Jasmin THRASHER [id number] it y of [facility] 4.2.7.2.686 [place] as [id number] [address] 2021-06-05 2021-06-05 Laboratory Only, Ang Db Test [facility] 1.2.8 40.114 [id number] Univers 14:15:00 14:30:00 Only Aguilar Stephen [facility] [id number] ity of [place] 4.2.7.2.686 Randall as NEENA?BLEA [id number] [address] MEDICAL OFFICE [facility] 2021-06-05 2021-06-05 Outpatient R AGUILAR [facility] [id number] Univers 14:15:00 14:27:42 STEPHEN [facility] 2021-06-05 2021-06-05 [facility] [id number] Univers 14:15:00 14:15:00 [facility] 2021-05-03 2021-05-03 Outpatient R EAGLE [facility] [id number] Univers 15:00:00 15:57:[address] [facility] 2021-05-03 2021-05-03 Office Ad, [facility] [id number] Univers 15:00:00 15:57:50 Visit Adriane YOUNG [id number] ity of [facility] 4.2.7.2.686 [place] PROFESS[place] [id number] Id dical [facility] 134 Branch BUILDING 2021-05-03 2021-05-03 Outpatient R EAGLE, [facility] [id number] Univers 15:00:00 15:57:[address] [facility] 2021-04-24 2021-04-24 Outpatient R FLOR [facility] [id number] Univers 15:20:00 18:23:19 MILAGRO marley o [facility] [place] [facility] 2021-04-24 2021-04-24 Outpatient R FLOR [facility] [id number] Univers 15:20:00 18:23:19 MILAGRO paigey o [facility] [place] [facility] 2021-04-24 2021-04-24 [facility] 1.2.840. [id number] Univers 15:22:18 15:42:18 Care Unknown, Attending HEALTH [id number] ity of [place] 4.2.7.2.686 [place] as NEENA?BLEA [phone] Id dical KNEY [address] [place] MEDICAL OFFICE BUILDING 2021-04-24 2021-04-24 Orders Doctor EDWAR 1.2.840.114 [id number] Univers 00:00:00 00:00:00 Only Unassigned, ANNA MARIE [id number] ity of [place] [facility] [id number] [place] as [id number] [address] 2020-12-17 2020-12-17 Outpatient R GO [facility] [id number] Univers 11:20:00 11:48:[address] [facility] 2020-12-17 2020-12-17 Outpatient Ish STILES [facility] [id number] Univers 11:20:00 11:20:[address] [facility] 2020-12-17 2020-12-17 Outpatient R GREEN, [facility] [id number] Univers 10:20:00 10:20:00 GABBY [facility] 2020-12-16 2020-12-16 Outpatient R ADUM, [facility] [id number] Univers 15:30:00 15:30:00 ADRIANE [facility] 2020-10-25 2020-10-25 Outpatient R ADUM, [facility] [id number] Univers 11:00:00 11:00:00 ADRIANE [facility] 2020-10-07 2020-10-07 Outpatient R ADUM, [facility] [id number] Univers 10:00:00 10:00:00 [facility] 2020-09-23 2020-09-23 Outpatient R VIKI, [facility] [id number] Univers 10:00:00 10:00:00 NADEEM [facility] 2020-09-09 2020-09-09 Outpatient R ADUM, [facility] [id number] Univers 10:30:00 10:30:00 [facility] 2020-08-31 2020-08-31 Outpatient [facility] [id number] Univers 10:10:00 10:10:00 [facility] 2020-08-23 2020-08-23 Outpatient R ADUM, [facility] [id number] Univers 13:00:00 13:00:00 ADRIANE [facility] 2020-08-02 2020-08-02 Outpatient R ADUM, [facility] [id number] Univers 08:00:00 08:00:00 ADRIANE [facility] 2020-07-20 2020-07-20 Outpatient R ADUM, [facility] [id number] Univers 16:00:00 16:00:00 [facility] 2020-07-11 2020-07-11 Nurse Nurse, [facility] [id number] 14:07:01 14:40:03 Visit [facility]'s Serafina [id number] [facility] [id number] Professio [id number] [address] 2020-07-11 2020-07-11 Outpatient R [facility] [id number] Univers 14:00:00 14:00:00 [facility] 2020-06-30 2020-06-30 Telephone Adum, [facility] [id number] 00:00:00 00:00:00 Adriane Molina Serafina [id number] [place] 4.2.7.2.686 Professio [id number] [address] 2020-06-26 2020-06-28 Hospital Adchevy, Adriane Molina [facility] 1.2.840.11 [id number] 05:40:00 19:30:00 Encounter Monica Lozada [id number] [place] 4.2.7.2.686 [place] [id number] 2020-06-28 2020-06-28 Outpatient R [facility] [id number] Univers 11:15:00 11:15:00 [facility] 2020-06-21 2020-06-21 Routine Ad, [facility] [id number] 16:04:12 16:59:00 Adriane Molina Hannah [id number] Visit [place] 4.2.7.2.686 Professio [id number] [address] 2020-06-21 2020-06-21 Outpatient R AD, [facility] [id number] Univers 16:00:00 16:00:00 [facility] 2020-06-14 2020-06-14 Routine Ad, [facility] [id number] 16:12:46 17:34:28 Adriane Molina Serafina [id number] Visit [place] 4.2.7.2.686 Professio [id number] [address] 2020-06-14 2020-06-14 Outpatient R AD, [facility] [id number] Univers 16:15:00 16:15:00 ADRIANE [facility] 2020-06-01 2020-06-01 Outpatient R ADUM, [facility] [id number] Univers 11:30:00 11:30:[address] [facility] 2020-05-31 2020-05-31 Outpatient R EMMETTAN, [facility] [id number] Univers 11:30:00 11:30:[address] [facility] 2020-05-17 2020-05-17 Outpatient R ADUM, [facility] [id number] Univers 16:00:00 16:00:00 [facility] 2020-05-03 2020-05-03 Outpatient R ADUM, [facility] [id number] Univers 16:15:00 16:15:00 ADRIANE [facility] 2020-04-28 2020-04-28 Outpatient R [facility] [id number] Univers 13:00:00 13:00:[address] [facility] 2020-04-19 2020-04-19 Outpatient R ADUM, [facility] [id number] Univers 11:00:00 11:00:00 ADRIANE [facility] 2020-04-18 2020-04-18 Outpatient R ADUM, [facility] [id number] Univers 13:00:00 13:00:00 ADRIANE [facility] 2020-03-30 2020-03-30 Outpatient R ADUM, [facility] [id number] Univers 11:30:00 11:30:00 ADRIANE [facility] 2020-03-03 2020-03-03 Outpatient R [facility] [id number] Univers 15:00:00 15:00:[address] [facility] 2020-03-02 2020-03-02 Outpatient R ADUM, [facility] [id number] Univers 13:30:00 13:30:00 DARIANE [facility] 2020-03-01 2020-03-01 Outpatient R ADUM, [facility] [id number] Univers 16:00:00 16:00:00 ADRIANE [facility] 2020-02-29 2020-02-29 Outpatient R [facility] [id number] Univers 16:15:00 16:15:[address] [facility] 2020-02-08 2020-02-08 Outpatient P [facility] [id number] Univers 13:00:00 [facility] 2020-02-03 2020-02-03 Outpatient R [facility] [id number] Univers 15:15:00 15:15:00 [facility] 2020-02-02 2020-02-02 [facility] [id number] Univers 13:00:00 13:00:00 [facility] 2020-02-01 2020-02-01 Outpatient R LOWELL, [facility] [id number] Univers 15:30:00 15:30:00 [facility] 2020-01-06 2020-01-06 Outpatient R [facility] [id number] Univers 11:30:00 11:30:00 [facility] 2020-01-05 2020-01-05 [facility] [id number] Univers 16:30:00 16:30:00 [facility] 2019-12-09 2019-12-09 Outpatient R [facility] [id number] Univers 14:30:00 14:30:00 [facility] 2019-12-08 2019-12-08 [facility] [id number] Univers 14:00:00 14:00:00 [facility] 2019-07-08 2019-07-08 [facility] [id number] Univers 00:00:00 00:00:00 [facility] 2019-06-22 2019-06-22 [facility] [id number] Univers 15:19:11 23:59:00 [facility] Results Test Description Test Time Test Comments Results Result Comments Source AG HEPATITIS B SURFACE 2019-11-16 14:32:00 Test Item Value Reference Range Interpretation Comme nts AG HEPATITIS B SURFACE (test code = HBSAG) NONREACTIVE NONREACTIVE AB HEPATITIS C [id number] 14:32:00 Test Item Value Reference Range Interpretation Comments AB HEPATITIS C (test code = NONREACTIVE NONREACTIVE HCVAB) SIGNAL TO CUTOFF (test code = <0.02 <0.80 N CUTOFF) AB [id number] 14:32:00 Test Item Value Reference Range Interpretation Comments AB TREPONEMA (test code = TREPAB) NONREACTIVE NONREACTIVE AG HEPATITIS B [id number] 13:39:00 Test Item Value Reference Range Interpretation Comments AG HEPATITIS B SURFACE (test code NONREACTIVE NONREACTIVE = HBSAG) AB HEPATITIS C [id number] 13:39:00 Test Item Value Reference Range Interpretation Comments AB HEPATITIS C (test code = HCVAB) NONREACTIVE SIGNAL TO CUTOFF (test code = CUTOFF) <0.80 AB [id number] 13:39:00 Test Item Value Reference Range Interpretation Comments AB TREPONEMA (test code = TREPAB) NONREACTIVE NONREACTIVE URINALYSIS [id number] 13:33:00 Test Item Value Reference Range Interpretation [...] = MUCU) RARE NONE SEEN CBC W/AUTO [id number] 13:03:00 Test Item Value Reference Range Interpretation [...] code = PLTMR) - MRI PELVIS W/O [id number] 21:41:00 Patient Name: RAAD BERKOWITZ Unit No: [id number] EXAMS: CPT CODE: [id number] MRI PELVIS W/O CONTRAST [id number] PROCEDURE: MRI ABDOMEN WITHOUT CONTRAST INDICATION: 19-year-old [...] at 214 Reported and signed by: Saqib Hendrickson MD CC: Alo Razo Technologist: Hailey Silva, RT,MR,CT Trnscrbd D/ (2140) Min Orig Print D/T: S: 11/15/2019 (2143) [facility] NAME: WOORAAD CARMENZA Radiology Department PHYS: Alo Hamm [address] : 2000 AGE: 19 SEX: F [place], [place] [address] LOC: [id number] PHONE #: [phone] EXAM DATE: 11/15/2019 STATUS: ADM IN FAX #: [phone] RAD NO: Page 1 Signed Report
[2022-03-18 12:45] LABS: Absolute Lymphocytes (CBC) 2.4 K/uL (0.7-4.9); Hematocrit 37.2 % (36.0-45.0); Lymphocytes % 36.8 % (15.3-44.8); MCV 79.6 fL (80-100); RBC Red Blood Cell Count 4.68 M/uL (3.86-4.86)
[2022-03-18] MEDS ORDERED: METHYLPREDNISOLONE 125 MG INJ ONE (12:54)
[2022-03-18] MEDS ORDERED: KETOROLAC 30 MG/ML INJ ONE (12:54)
[2022-03-18 13:03] LABS: Potassium 3.6 mmol/L (3.5-5.1); Troponin High Sensitivity 3.5 pg/mL (<58.9)
[2022-03-18 13:05] LABS: Urine Blood Negative (Negative); Urine Glucose Negative (Negative); Urine Protein Negative (Negative); Urine pH 7.5 (5.0-7.0)
--- NOTE | 2022-03-18 13:40 | RAD REPORT ---
EXAM DESCRIPTION: CTSpine Lumbar Wo Con03/18/2022 1:23 pm CLINICAL HISTORY: Back pain COMPARISON: None TECHNIQUE: Computed axial tomography lumbar spine was obtained with coronal and sagittal reconstruct ion. All CT scans are performed using dose optimization technique as appropriate and may include automated exposure control or mA/KV adjustment according to patient size. FINDINGS: No fracture is seen. No dislocation Slight posterior subluxation L5 on S1 A large disc bulge/herniation not seen. There may be a small left lateral disc herniation L4-5 Spinal stenosis is not noted. IMPRESSION: Negative for a lumbar fracture. Possible small left lateral disc herniation L4-5 If patient continues to have symptoms to suggest a significant disc herniation MRI would be recommend ed
--- NOTE | 2022-03-18 14:24 | RAD REPORT ---
EXAM DESCRIPTION: [place] Single View03/18/2022 2:18 pm CLINICAL HISTORY: Chest pain COMPARISON: none FINDINGS: The lungs appear clear of acute infiltrate. The heart is normal size IMPRESSION: No acute abnormalities displayed
--- NOTE | 2022-03-18 14:42 | EDPHYS ---
Physician Documentation [facility] Name: Edson Juarez Age: 21 yrs Sex: Female : 2000 Arrival Date: 03/18/2022 Time: 11:32 Bed 18 Private MD: Erasto Collins W ED Physician Deepak Jerome HPI: 03/18 17:18 This 21 yrs old Female presents to ER via Ambulatory with complaints of Back Pain. kdr 17:18 Patient states that she has had back pain persistently since she was about 12 years kdr old. She recently obtained insurance and her pain has persisted and perhaps worsened a little. She states that her pain is particularly more noticeable and problematic when she is standing more often. She has a new job in which she does more standing. She denies pain radiating far down her legs perhaps only to her lateral aspect of her thighs bilaterally. She denies any change in her bowel or bladder habits. She denies loss of control of her bowel or bladder symptoms well. She also denies any sensation change in her perineum.. Onset: The symptoms/episode began/occurred 10 year(s) ago, at an unknown time. Severity of symptoms: At their worst the symptoms were mild moderate just prior to arrival, in the emergency department the symptoms are unchanged. The patient has not experienced similar symptoms in the past. The patient has not recently seen a physician. Historical: - Allergies: 11:47 No Known Allergies; ll1 - PMHx: 11:47 None; ll1 - PSHx: 11:47 None; ll1 - Immunization history:: Client reports receiving the 2nd dose of the Covid vaccine. - Social history:: Smoking status: Patient reports the use of cigarette tobacco products, denies chronic smoking, but will smoke occasionally, Reported history of juuling and/or vaping. ROS: 17:18 Constitutional: Negative for fever, chills, and weight loss, Eyes: Negative for injury, kdr pain, redness, and discharge, ENT: Negative for injury, pain, and discharge, Neck: Negative for injury, pain, and swelling, Cardiovascular: Negative for chest pain, palpitations, and edema, Respiratory: Negative for shortness of breath, cough, wheezing, and pleuritic chest pain, Abdomen/GI: Negative for abdominal pain, nausea, vomiting, diarrhea, and constipation, : Negative for injury, bleeding, discharge, and swelling, MS/Extremity: Negative for injury and deformity, Skin: Negative for injury, rash, and discoloration, Neuro: Negative for headache, weakness, numbness, tingling, and seizure activity. Psych: Negative for depression, anxiety, suicide ideation, homicidal ideation, and hallucinations, Allergy/Immunology: Negative for hives, rash, and allergies, Endocrine: Negative for neck swelling, polydipsia, polyuria, polyphagia, and marked weight changes, Hematologic/Lymphatic: Negative for swollen nodes, abnormal bleeding, and unusual bruising. 17:18 Back: Positive for pain at rest, pain with movement, of the low back area. Exam: 17:18 Constitutional: This is a well developed, well nourished patient who is awake, alert, kdr and in no acute distress. Head/Face: Normocephalic, atraumatic. Eyes: Pupils equal round and reactive to light, extra-ocular motions intact. Lids and lashes normal. Conjunctiva and sclera are non-icteric and not injected. Cornea within normal limits. Periorbital areas with no swelling, redness, or edema. Neck: Trachea midline, no thyromegaly or masses palpated, and no cervical lymphadenopathy. Supple, full range of motion without nuchal rigidity, or vertebral point tenderness. No Meningismus. Chest/axilla: Normal chest wall appearance and motion. Nontender with no deformity. No lesions are appreciated. Cardiovascular: Regular rate and rhythm with a normal S1 and S2. No gallops, murmurs, or rubs. Normal PMI, no JVD. No pulse deficits. Respiratory: Lungs have equal breath sounds bilaterally, clear to auscultation and percussion. No rales, rhonchi or wheezes noted. No increased work of breathing, no retractions or nasal flaring. Abdomen/GI: Soft, non-tender, with normal bowel sounds. No distension or tympany. No guarding or rebound. No evidence of tenderness throughout. Skin: Warm, dry with normal turgor. Normal color with no rashes, no lesions, and no evidence of cellulitis. MS/ Extremity: Pulses equal, no cyanosis. Neurovascular intact. Full, normal range of motion. Neuro: Awake and alert, GCS 15, oriented to person, place, time, and situation. Cranial nerves II-XII grossly intact. Motor strength 5/5 in all extremities. Sensory grossly intact. Cerebellar exam normal. Normal gait. Psych: Awake, alert, with orientation to person, place and time. Behavior, mood, and affect are within normal limits. 17:18 Back: ROM is normal, normal spinal alignment noted, CVA tenderness, is absent, muscle spasm, is not present. Vital Signs: 11:47 BP 141 / 94; Pulse 83; Resp 16; Temp 97.5; Pulse Ox 98% ; Weight 74.84 kg; Height 4 ft. ll1 10 in. (147.32 cm); Pain 4/10; 13:00 BP 124 / 83; Pulse 70; Resp 16; Pulse Ox 100% on R/A; eh3 14:00 Pulse 64; Resp 17; Pulse Ox 100% on R/A; eh3 11:47 Body Mass Index 34.48 (74.84 kg, 147.32 cm) ll1 MDM: 14:41 Patient medically screened. kdr 17:18 Data reviewed: vital signs, nurses notes, lab test result(s), radiologic studies. kdr Counseling: I had a detailed discussion with the patient and/or guardian regarding: the historical points, exam findings, and any diagnostic results supporting the discharge/admit diagnosis, lab results, radiology results, the need for outpatient follow up. 03/18 12:31 Order name: Basic Metabolic Panel; Complete Time: 14:40 3 03/18 12:31 Order name: CBC with Diff; Complete Time: 14:40 3 03/18 12:31 Order name: Troponin HS; Complete Time: 14:40 3 03/18 12:31 Order name: XRAY Chest (1 view); Complete Time: 14:40 3 03/18 13:05 Order name: Urine Dipstick-Ancillary; Complete Time: 14:40 EDMS 03/18 13:12 Order name: Urine --Ancillary (enter results); Complete Time: 14:40 eb 03/18 12:31 Order name: EKG; Complete Time: 12:32 3 03/18 12:31 Order name: Cardiac monitoring; Complete Time: 12:31 3 03/18 12:31 Order name: EKG - Nurse/Tech; Complete Time: 12:31 3 03/18 12:31 Order name: IV Saline Lock; Complete Time: 12:31 eh3 03/18 12:31 Order name: Labs collected and sent; Complete Time: 12:31 eh3 03/18 12:40 Order name: CT Lumbar Spine Wo Con; Complete Time: 14:40 kdr 03/18 12:31 Order name: O2 Per Protocol; Complete Time: 12:31 eh3 03/18 12:31 Order name: O2 Sat Monitoring; Complete Time: 12:31 eh3 03/18 12:41 Order name: Urine Test (obtain specimen); Complete Time: 13:09 kdr 03/18 12:41 Order name: Urine Dipstick-Ancillary (obtain specimen); Complete Time: 13:09 kdr Administered Medications: 13:11 Drug: Ketorolac 30 mg Route: IVP; Site: left antecubital; eh3 14:17 Follow up: Response: No adverse reaction eh3 13:11 Drug: SOLU-Medrol (methylPrednisoLONE) 125 mg Route: IVP; Site: left antecubital; eh3 14:16 Follow up: Response: No adverse reaction eh3 Disposition Summary: 03/18/22 14:41 Discharge Ordered Location: Home kdr Problem: an ongoing problem kdr Symptoms: have improved kdr Condition: Stable kdr Diagnosis - Low back pain kdr Followup: kdr - With: Erasto Collins MD - When: 2 - 3 days - Reason: If symptoms return, Further diagnostic work-up, Recheck today's complaints, Continuance of care, Re-evaluation by your physician Discharge Instructions: - Discharge Summary Sheet kdr - Musculoskeletal Pain kdr - Chronic Back Pain, [id number] kdr - Form - Excuse from Work, School, or Physical Activity eh3 Forms: - Medication Reconciliation Form kdr - Thank You Letter kdr Prescriptions: - Ibuprofen 600 mg Oral Tablet - take 1 tablet by ORAL route every 6 hours As needed take with food; 15 tablet; kdr Refills: 0, Product Selection Permitted - Cyclobenzaprine 10 mg Oral Tablet - take 1 tablet by ORAL route every 8 hours As needed; 15 tablet; Refills: 0, kdr Product Selection Permitted - Medrol (Federico) 4 mg Oral Tablets, Dose Pack - take 1 tablet by ORAL route as directed - follow package instructions; 1 kdr packet; Refills: 0, Product Selection Permitted Signatures: Dispatcher [employer] EDMS Rittger, DeepakMD MD meño garcia Lynsay, RN RN ll1 Estefany Israel, DAKOTA RN eh3
--- NOTE | 2022-03-18 14:42 | ER ---
Nurse's Notes [facility] Name: Edson Juarez Age: 21 yrs Sex: Female : 2000 Arrival Date: 03/18/2022 Time: 11:32 Bed 18 Private MD: Erasto Collins W Diagnosis: Low back pain Presentation: 03/18 11:47 Chief complaint: Patient states: Low back pain worse than usual for past two days. ll1 Coronavirus screen: Vaccine status: Patient reports receiving the 2nd dose of the covid vaccine. Client denies travel out of the [place] in the last 14 days. At this time, the client does not indicate any symptoms associated with coronavirus-19. Ebola Screen: Patient denies travel to an Ebola-affected area in the 21 days before illness onset. Initial Sepsis Screen: Does the patient meet any 2 criteria? No. Patient's initial sepsis screen is negative. Does the patient have a suspected source of infection? Yes: Bone or joint infection. Risk Assessment: Do you want to hurt yourself or someone else? Patient reports no desire to harm self or others. Onset of symptoms was March 17, 2022. 11:47 Method Of Arrival: Ambulatory ll1 11:47 Acuity: JOSE F 4 ll1 Triage Assessment: 11:49 General: Appears in no apparent distress. Behavior is cooperative, appropriate for age. ll1 Pain: Complains of pain in back Pain currently is 4 out of 10 on a pain scale. Quality of pain is described as aching, sharp, Aggravated by increased activity, weight bearing. Musculoskeletal: Circulation, motion, and sensation intact. Capillary refill < 3 seconds, Reports pain in back. Historical: - Allergies: 11:47 No Known Allergies; ll1 - PMHx: 11:47 None; ll1 - PSHx: 11:47 None; ll1 - Immunization history:: Client reports receiving the 2nd dose of the Covid vaccine. - Social history:: Smoking status: Patient reports the use of cigarette tobacco products, denies chronic smoking, but will smoke occasionally, Reported history of juuling and/or vaping. Screenin:56 Abuse screen: Denies threats or abuse. Denies injuries from another. Nutritional eh3 screening: No deficits noted. Tuberculosis screening: No symptoms or risk factors identified. Fall Risk None identified. Assessment: 11:56 General: Appears in no apparent distress. uncomfortable, Behavior is calm, cooperative, eh3 appropriate for age. Pain: Complains of pain in lumbar area, left low back and right low back Pain does not radiate. Pain currently is 8 out of 10 on a pain scale. Neuro: Level of Consciousness is awake, alert, obeys commands, Oriented to person, place, time, situation. Cardiovascular: Capillary refill < 3 seconds Patient's skin is warm and dry. Respiratory: Airway is patent Respiratory effort is even, unlabored, Respiratory pattern is regular, symmetrical. GI: No signs and/or symptoms were reported involving the gastrointestinal system. GI: Abdomen is round non-distended, Abd is soft and non tender X 4 quads. : No signs and/or symptoms were reported regarding the genitourinary system. EENT: Derm: No signs and/or symptoms reported regarding the dermatologic system. Musculoskeletal: Range of motion: intact in all extremities. 12:15 Reassessment: HR 160. PT CO chest pain. pt states this has been on going and was told tp1 by personal consultant that it is related to anxiety. pt denies feeling anxious at this time. provider notified. 12:16 Reassessment: HR 100. tp1 12:30 Cardiovascular: Rhythm is sinus arrythmia. tp1 12:54 Reassessment: Patient appears in no apparent distress at this time. Patient and/or tp1 family updated on plan of care and expected duration. Pain level reassessed. Patient is alert, oriented x 3, equal unlabored respirations, skin warm/dry/pink. Continues to CO intermittent chest pain. 14:00 Reassessment: Patient and/or family updated on plan of care and expected duration. Pain eh3 level reassessed. Patient is alert, oriented x 3, equal unlabored respirations, skin warm/dry/pink. Pt states chest pain is gone, but lower back pain has not improved Patient states symptoms have improved. Vital Signs: 11:47 BP 141 / 94; Pulse 83; Resp 16; Temp 97.5; Pulse Ox 98% ; Weight 74.84 kg; Height 4 ft. ll1 10 in. (147.32 cm); Pain 4/10; 13:00 BP 124 / 83; Pulse 70; Resp 16; Pulse Ox 100% on R/A; eh3 14:00 Pulse 64; Resp 17; Pulse Ox 100% on R/A; eh3 11:47 Body Mass Index 34.48 (74.84 kg, 147.32 cm) 1 ED Course: 11:32 Patient arrived in ED. am2 11:32 Erasto Collins MD is Private Physician. am2 11:33 Deepak Jerome MD is Attending Physician. kdr 11:47 Arm band placed on. ll1 11:49 Triage completed. ll1 11:49 Patient placed in an exam room, on a stretcher. ll1 11:56 Estefany Israel, DAKOTA is Primary Nurse. eh3 11:56 Patient has correct armband on for positive identification. Bed in low position. Call eh3 light in reach. Side rails up X2. Client placed on continuous cardiac and pulse oximetry monitoring. NIBP monitoring applied. Door closed. Noise minimized. Lights dimmed. Warm blanket given. 12:25 Inserted saline lock: 22 gauge in left antecubital area, using aseptic technique. Blood tp1 collected. 12:37 Basic Metabolic Panel Sent. eh3 12:37 CBC with Diff Sent. eh3 12:37 Troponin HS Sent. eh3 13:25 CT Lumbar Spine Wo Con In Process Unspecified. EDMS 14:20 XRAY Chest (1 view) In Process Unspecified. EDMS 14:41 Erasto Collins MD is Referral Physician. kdr 14:56 No provider procedures requiring assistance completed. IV discontinued, intact, eh3 bleeding controlled, No redness/swelling at site. Pressure dressing applied. Administered Medications: 13:11 Drug: Ketorolac 30 mg Route: IVP; Site: left antecubital; eh3 14:17 Follow up: Response: No adverse reaction eh3 13:11 Drug: SOLU-Medrol (methylPrednisoLONE) 125 mg Route: IVP; Site: left antecubital; eh3 14:16 Follow up: Response: No adverse reaction eh3 Medication: 14:57 VIS not applicable for this client. eh3 Outcome: 14:41 Discharge ordered by . kdr 14:56 Discharged to home ambulatory. eh3 14:56 Condition: stable 14:56 Discharge instructions given to patient, Instructed on discharge instructions, follow up and referral plans. medication usage, Demonstrated understanding of instructions, follow-up care, medications, Prescriptions given X 3. 15:03 Patient left the ED. eh3 Signatures: Dispatcher [employer] EDMS Deepak Jerome MD MD kdr Moreno, Amanda am2 Lewis, Lynsay RN RN ll1 Kiana Gonzalez RN RN tp1 Estefany Israel RN RN 3
[2022-03-18 15:35] VITALS: TEMP 97.5
[2022-03-18 15:54] VITALS: BP 124/83; O2SAT 100
--- NOTE | 2022-03-19 15:59 | EKG ---
Test Date: 2022-03-18 Test Time: 12:25:38 Roll Panner: ALFONZO MEASUREMENT RESULTS: Intervals: Rate: 72 OK: 126 QRSD: 86 QT: 410 QTc: 448 [place]: P: 43 OK: 126 QRS: 69 T: 37 INTERPRETIVE STATEMENTS: Sinus rhythm with marked sinus arrhythmia Otherwise normal ECG No previous ECG available for comparison Electronically Signed On 03-19-22 15:56:42 CDT by Julian Dorado
== END 2022-03-18 15:03 | disposition home or self-care (01) ==
LOC: ER 11:30
DX: M54.50 Low back pain, unspecified (principal); F17.210 Nicotine dependence, cigarettes, uncomplicated
CPT/HCPCS: 93005; 85025; 80048; 36415; 81025; 81003; 84484; 72131; 71045; 96375; 96374; 99284; J2930

== ENCOUNTER 2022-04-21 09:17 | Emergency (ER) | payer OTHER ==
--- OUTSIDE RECORDS SUMMARY | 2022-04-21 09:26 | XMS REPORT | Continuity of Care Document ---
:2000 Author Organization [facility] t Address [facility] [place]. [address] [place] [id number] Care Team Providers Name Role Phone MiguelErasto Steven Primary Care Physician Alo Gonsalez Attending Clinician Unavailable Mauricio DUNCAN, Brenda Lara Attending Clinician Unavailable MILAGRO RAY Attending Clinician Unavailable Flor ASSOCIATE MUSIC PROFESSORMilagro Attending Clinician Doctor Unassigned, [place] Attending Clinician Unavailable GO GABBY Attending Clinician Unavailable Green ASSOCIATE MUSIC PROFESSOR, Gabby Attending Clinician Ebrahim ASSOCIATE MUSIC PROFESSOR, Rania Attending Clinician ADRIANE ENGLAND Attending Clinician [...] Date Expiration Date Yanira TATUM CHOICE POS [id number] 2020 II 00:00:00 [employer] [place] - [id number] 2018 OUT OF STATE 00:00:00 Problems Condition Condition Condition Status Onset Resolution Last Treating Co mments Source Name Details Category Date Date Treatment Clinician Date Other Other Disease Active Univers depression depression 6-08 it y of 00:00: [address] Obesity Obesity Disease Active Univers (BMI (BMI 4-06 ity of 30-39.9) 30-39.9) 00:00: [place] 00 [facility] Gestationa Gestationa Disease Resolve 2020-08-02 2020-08-02 Univers l l d 2- 00:00:00 14:13:48 [place]y of hypertens[place]ens[place] without 00 Me dical significan significan Br anch t t proteinuri proteinuri a, a, Normal Normal Disease Resolve 2020-08-02 2020-08-02 Univers labor labor d 2-07 00:00:00 15:09:02 ity of 00:00: [address] Liveborn Liveborn Disease Resolve 2020-08-02 2020-08-02 Univers , of , of d 2-07 00:00:00 14:13:48 ity of grubbs grubbs [place]: [place] , 00 Me dical born in born in [facility] by vaginal by vaginal delivery delivery 38 weeks 38 weeks Disease Resolve 2020-08-02 2020-08-02 Univers gestation gestation d 7-21 00:00:00 14:13:48 ity of of of 00:00: [place] 00 [facility] High risk High risk Disease Resolve 2020-08-02 2020-08-02 Univers teen teen d 7-21 00:00:00 14:13:48 [place] 00 Medica l trimester trimester Bran ch Gastroente Gastroente Disease Resolve 2020-06-21 2020-06-21 Univers ritis ritcampbell d 06-15 00:00:00 23:29:09 ity of 00:: [place] 00 Medical [place] Dehydratio Dehydratio Disease Resolve 2020-06-21 2020-06-21 Univers n n d 06-15 00:00:00 23:29:14 ity of 00:: [place] [address] Medical [place] Allergies, Adverse Reactions, Alerts Allergy Allergy Status Severity Reaction(s) Onset Inactive Treating Comm ents Source Name Type Date Date Clinician No Known DA Active U 2019-0 [facility] 00 [facility] [place] [facility] No Known DA Active U 2020-0 [facility] Allergie - [facility] 00:[facility]: [facility] 00 [facility] NO KNOWN Drug Active Univers ALLERGIE Class ity of S [facility] Social History Social Habit Start Date Stop Date Quantity Comments Source History SDOH University o f Alcohol Std [place] Medical Drinks Branch History SDTX University o f Alcohol Binge [place] Medic al Branch History SDOH University o f Alcohol Comment [place] Med ical Branch Exposure to 2021-11-04 2021-11-14 Not sure University of SARS-CoV-2 00:00:00 13:53:00 [facility] (event) Branch Alcohol intake 2021-11-14 2021-11-14 Lifetime University of 00:00:00 00:00:00 non-drinker [facility] (finding) Branch Tobacco use and 2021-05-03 2021-05-03 Never used Universit y of exposure 00:00:00 00:00:00 [facility] Tobacco Comment 2021-05-03 2021-05-03 1 cig occasional Uni versity of 00:00:00 00:00:00 [place] Medical [place] History SDOH 2019-12-08 2019-12-08 1 University o f Alcohol Frequency 00:00:00 00:00:00 [facility] edical [place] Sex Assigned At [birth year] Universit y of 00:00:00 00:00:00 [facility] Branch Smoking Status Start Date Stop Date Source Current some day smoker 2021-05-03 00:00:00 [facility] Never smoker [facility] Medical Branch Medications Ordered Filled Start Stop Current Ordering Indication Dosage Frequency Signature Comments Components Source Medication Medication Date Date Medication? Clinician (SIG) Name Name proMETHazin Yes [id number] 12.5mg Take 1 Univers e 12.5 mg 6-28 tablet by ity o f tablet 00:00: mouth [place] 00 every 6 Medical (six) Branch hours as needed for Nausea and Vomiting (N/V). proMETHazin Yes [id number] 12.5mg Take 1 Univers e 12.5 mg 6-28 tablet by ity o f tablet 00:00: mouth [place] 00 every 6 Medical (six) Branch hours as needed for Nausea and Vomiting (N/V). azithromyci 2021- No [id number] Take 2 Univers n 250 mg 6-28 07-04 tablets by ity of tablet 00:00: 04:59 mouth [place] 00 :00 daily for Medical 1 day, Branch THEN 1 tablet daily for 4 days. azithromyci 2021- No [id number] Take 2 Univers n 250 mg 6-28 07-04 tablets by ity of tablet 00:00: 04:59 mouth [place] 00 :00 daily for Medical 1 day, Branch THEN 1 tablet daily for 4 days. escitalopra Yes [id number] 10mg Take 1 Univers m oxalate 6-08 tablet by ity o f 10 mg 00:00: mouth [place] tablet 00 daily. Medical Branch escitalopra Yes [id number] 10mg Take 1 Univers m oxalate 6-08 tablet by ity o f 10 mg 00:00: mouth [place] tablet 00 daily. Medical Branch escitalopra Yes [id number] 10mg Take 1 Univers m oxalate 6-08 tablet by ity o f 10 mg 00:00: mouth [place] tablet 00 daily. Medical Branch escitalopra Yes [id number] 10mg Take 1 Univers m oxalate 6-08 tablet by ity o f 10 mg 00:00: mouth [place] tablet 00 daily. Medical Branch azithromyci 2020-0 Yes Univer s n 250 mg 6- ity of tablet 00:00: [place] 00 Medical Branch bromphenira 2020-0 Yes Univer s mine-pseudo - ity of ephedrine-D 00:00: [facility] 00 Medical mg/5 mL Branch syrup azithromyci 2020-0 Yes Univer s n 250 mg 6- ity of tablet 00:00: [place] 00 Medical Branch bromphenira 2020-0 Yes Univer s mine-pseudo - ity of ephedrine-D 00:00: [facility] 00 Medical mg/5 mL Branch syrup azithromyci 2020-0 2- No Unive rs n 250 mg 10-20 ity of tablet 00:00: 00:00 [place] 00 :00 Medical Branch bromphenira 2020-0 2- No Unive rs mine-pseudo 10-20- ity of ephedrine-D 00:00: 00:00 [facility] 00 :00 Medical mg/5 mL Branch syrup escitalopra 2020-0 Yes 10mg Take 1 Univers oxalate 4-23 depression tablet by ity of 10 mg 00:00: mouth [place] tablet 00 daily. [facility] Branch Immunizations Ordered Filled Immunization Date Status Comments [facility] e Immunization Name Name SARS-COV-2 COVID-19 2020-09-23 Completed Unive rsity of PFIZER VACCINE 00:00:00 [facility] SARS-COV-2 COVID-19 2020-09-23 Completed Unive rsity of PFIZER VACCINE 00:00:00 [facility] SARS-COV-2 COVID-19 2020-09-23 Completed Unive rsity of PFIZER VACCINE 00:00:00 [facility] SARS-COV-2 COVID-19 2020-09-23 Completed Unive rsity of PFIZER VACCINE 00:00:00 [facility] SARS-COV-2 COVID-19 2020-09-23 Completed Unive rsity of PFIZER VACCINE 00:00:00 [facility] SARS-COV-2 COVID-19 2020-08-31 Completed Unive rsity of PFIZER VACCINE 00:00:00 [place] [facility] Branch SARS-COV-2 COVID-19 2020-08-31 Completed Unive rsity of PFIZER VACCINE 00:00:00 [facility] SARS-COV-2 COVID-19 2020-08-31 Completed Unive rsity of PFIZER VACCINE 00:00:00 [facility] SARS-COV-2 COVID-19 2020-08-31 Completed Unive rsity of PFIZER VACCINE 00:00:00 [facility] SARS-COV-2 COVID-19 2020-08-31 Completed Unive rsity of PFIZER VACCINE 00:00:00 [facility] TDAP 2020-04-19 Completed University of 00:00:00 [facility] TDAP 2020-04-19 Completed University of 00:00:00 [facility] TDAP 2020-04-19 Completed University of 00:00:00 [facility] TDAP 2020-04-19 Completed University of 00:00:00 [facility] TDAP 2020-04-19 Completed University of 00:00:00 [facility] Influenza Virus 2020-03-30 Completed Universit y of Vaccine Quad .5 mL 00:00:00 [facility] 6+ MO Branch Influenza Virus 2020-03-30 Completed Universit y of Vaccine Quad .5 mL 00:00:00 [facility] 6+ MO Branch Influenza Virus 2020-03-30 Completed Universit y of Vaccine [place] .5 mL 00:00:00 [facility] 6+ MO Branch Influenza Virus 2020-03-30 Completed Universit y of Vaccine [place] .5 mL 00:00:00 [facility] 6+ MO Branch Influenza Virus 2020-03-30 Completed Universit y of Vaccine Quad .5 mL 00:00:00 [facility] 6+ MO Branch Vital Signs Vital Name Observation Time Observation Value Comments Source Systolic blood 2021-11-14 19:02:00 128 mm[Hg] Univer sity of pressure [facility] Diastolic blood 2021-11-14 19:02:00 85 mm[Hg] Unive rsity of pressure [facility] Heart rate 2021-11-14 19:02:00 84 /min Universi ty [facility] Body temperature 2021-11-14 19:02:00 36.94 Marta [facility] Respiratory rate 2021-11-14 19:02:00 17 /min [facility] Body height 2021-11-14 19:02:00 144.8 cm Universi ty of [place] [facility] Body weight 2021-11-14 19:02:00 79.039 kg Universi ty of [place] [facility] BMI 2021-11-14 19:02:00 37.71 kg/m2 Universi ty [facility] Body mass index 2021-11-14 19:02:00 98.10 % Unive rsity of (BMI) [Percentile] [place] Med ical Per age and sex Branch Oxygen saturation in 2021-11-14 19:02:00 99 /min University of Arterial blood by [place] [employer] edilma Pulse oximetry Branch Systolic blood 2021-10-11 19:21:00 126 mm[Hg] Univer sity of pressure [facility] Diastolic blood 2021-10-11 19:21:00 89 mm[Hg] Unive rsity of pressure [facility] Heart rate 2021-10-11 19:21:00 98 /min [facility] Body temperature 2021-10-11 19:21:00 37.11 [facility] Respiratory rate 2021-10-11 19:21:00 16 /min [facility] Body height 2021-10-11 19:21:00 144.8 cm Universi ty [facility] [place] [facility] Medical [place] Body weight 2021-10-11 19:21:00 79.89 kg Universi ty [facility] [place] [facility] Medical [place] BMI 2021-10-11 19:21:00 38.11 kg/m2 Universi [facility] Body mass index 2021-10-11 19:21:00 98.22 % Unive rsity of (BMI) [Percentile] [place] Med ical Per age and sex Branch Oxygen saturation in 2021-10-11 19:21:00 97 /min University of Arterial blood by [facility] Pulse oximetry Branch Procedures Procedure Date / Time Performed Performing Clinician Sour e ASSIGNMENT OF BENEFITS 2021-11-14 18:55:13 Doctor Unassigned, No [facility] SARS-COV-2 COVID-19 2020-09-23 15:07:29 Doctor Unassigned, No [facility],0.3ML,IM Name Medical [place] (PFIZER) Plan of Care Planned Activity Planned Date Details Comments Source Future Scheduled 2021-06-21 Screening for [facility] Test 00:00:00 Chlamydia trachomatis Medica l Branch (procedure) [code = [id number]] Future Scheduled 2020-05-17 DTaP,Tdap,and Td Univers ity [facility] [place] [facility] Test 00:00:00 Vaccines (2 - Td) Medical Br anch [code = DTaP,Tdap,and Td Vaccines (2 - Td)] Future Scheduled 2018 MENINGOCOCCAL VACCINE Un iversity [facility] [place] [facility] Test 00:00:00 (1 - 2-dose series) Medical Branch [code = MENINGOCOCCAL VACCINE (1 - 2-dose series)] Future Scheduled 2014 [facility] (procedure) [code = Medical Branch [id number]] Future Scheduled 2014 Depression screening Uni versity [facility] [place] [facility] Test 00:00:00 (procedure) [code = Medical Branch [id number]] Future Scheduled 2013 HPV VACCINES (1 - Univer sity [facility] [place] [facility] Test 00:00:00 2-dose series) [code = Medic al Branch HPV VACCINES (1 - 2-dose series)] Future Scheduled 2012 MENINGOCOCCAL B Universi [facility] Test 00:00:00 VACCINES (1 of 2 - Medical B ranch Risk Bexsero 2-dose series) [code = MENINGOCOCCAL B VACCINES (1 of 2 - Risk Bexsero 2-dose series)] Future Scheduled 2003-08-16 HEPATITIS A VACCINES Uni versity of [place] Test 00:00:00 (1 of 2 - 2-dose Medical [facility] series) [code = HEPATITIS A VACCINES (1 of 2 - 2-dose series)] Future Scheduled 2003-08-16 MMR VACCINES (1 of 2 - U niversity [facility] Test 00:00:00 Standard series) [code Medic al Branch = MMR VACCINES (1 of 2 - Standard series)] Future Scheduled 2003-08-16 VARICELLA VACCINES (1 Un iversity of [place] Test 00:00:00 of 2 - 2-dose Medical Branch childhood series) [code = VARICELLA VACCINES (1 of 2 - 2-dose childhood series)] Future Scheduled 2002 HEPATITIS B VACCINES Uni versity [facility] [place] [facility] Test 00:00:00 (1 of 3 - 3-dose Medical Bra [facility] primary series) [code = HEPATITIS B VACCINES (1 of 3 - 3-dose primary series)] Encounters Start End Encounter Admission Attending Care Care Encounter Source Date/Time Date/Time Type Type Clinicians Facility Department ID 2021-03-18 Outpatient P [facility] EDDIE [id number] Univers 20:10:05 ity of [facility] 2021-03-18 Outpatient P [facility] ED[facility] [id number] Univers 20:03:57 ity of [facility] 2019-11-15 Inpatient EM Wallace, [facility] PEDI [id number] [facility] 18:50:00 Alo 50 Woman' s [facility] 2021-11-15 2021-11-15 Telephone EDWAR Martínez [id number] Univers 00:00:00 00:00:00 Brenda THRASHER [id number] i ty of [facility] [id number] Randall as [phone] [facility] 019 [place] 2021-11-14 2021-11-14 Outpatient R FLOR [facility] [id number] Univers 14:00:00 14:29:58 MILAGRO marley o f [facility] 2021-11-14 2021-11-14 Urgent Flor [facility] [id number] Univers 14:00:00 14:20:00 Care [facility] [id number] i ty of [place] [id number] Randall as NEENA?BLEA [phone] [address] MEDICAL OFFICE BUILDING 2021-11-14 2021-11-14 Orders Doctor EDWAR [id number] Univers 00:00:00 00:00:00 Only Unassigned, ANNA MARIE [id number] ity of [place] [facility] [id number] [place] as [phone] [facility] 009 [place] 2021-10-11 2021-10-11 Outpatient R GO [facility] [id number] Univers 14:20:00 14:44:09 GABBY itluz [facility] 2021-10-11 2021-10-11 Urgent Gabby Stiles [facility] [id number] Univers 14:20:00 14:44:09 Care Arti Montiel [facility] [id number] ity of [place] [id number] [place] as NEENA?BLEA [id number] [address] MEDICAL OFFICE BUILDING 2021-10-11 2021-10-11 Outpatient R GO [facility] [id number] Univers 14:20:00 14:44:09 GABBY ity [facility] 2021-10-11 2021-10-11 Orders Doctor VANN [id number] Univers 00:00:00 00:00:00 Only Unassigned, ANNA MARIE [id number] ity of [place] [facility] [id number] [place] as [id number] [address] 2021-09-05 2021-09-05 [facility] [id number] Univers 13:00:00 13:00:00 [facility] 2021-06-07 2021-06-07 Telephone EDWAR Pyle [id number] Univers 00:00:00 00:00:00 Jasmin THRASHER [id number] it y of [facility] [id number] [place] as [id number] [address] 2021-06-05 2021-06-05 Laboratory Only, Ang Db Test [facility] [id number] Univers 14:15:00 14:30:00 Only Aguilar Stephen [facility] [id number] ity of [place] [id number] [place] as NEENA?BLEA [id number] [address] MEDICAL OFFICE [facility] 2021-06-05 2021-06-05 Outpatient R AGUILAR [facility] [id number] Univers 14:15:00 14:27:42 STEPHEN [facility] 2021-06-05 2021-06-05 [facility] [id number] Univers 14:15:00 14:15:00 [facility] 2021-05-03 2021-05-03 Outpatient R EAGLE [facility] [id number] Univers 15:00:00 15:57:50 ADRIANE ity [facility] 2021-05-03 2021-05-03 Office Ad, [facility] [id number] Univers 15:00:00 15:57:50 Visit Adriane YOUNG [id number] ity of [facility] 4.2.7.2.686 [place] PROFESS[place] [id number] Ri dical [facility] 134 Branch BUILDING 2021-05-03 2021-05-03 Outpatient R EAGLE, [facility] [id number] Univers 15:00:00 15:57:50 ADRIANE ity [facility] 2021-04-24 2021-04-24 Outpatient R FLOR [facility] [id number] Univers 15:20:00 18:23:19 MILAGRO marley o [facility] 2021-04-24 2021-04-24 Outpatient R FLOR [facility] [id number] Univers 15:20:00 18:23:19 MILAGRO paigey o [facility] 2021-04-24 2021-04-24 [facility] 1.2.840. [id number] Univers 15:22:18 15:42:18 Care Unknown, Attending HEALTH [id number] ity of [place] 4.2.7.2.686 Randall as NEENA?BLEA [id number] Ri dical KNEY [address] [place] MEDICAL OFFICE BUILDING 2021-04-24 2021-04-24 Orders Doctor EDWAR [id number] Univers 00:00:00 00:00:00 Only Unassigned, ANNA MARIE [id number] ity of [place] [facility] 4.2.7.2.686 [place] as [id number] [address] 2020-12-17 2020-12-17 Outpatient R GO [facility] [id number] Univers 11:20:00 11:48:42 GABBY ity [facility] 2020-12-17 2020-12-17 Outpatient Ish STILES [facility] [id number] Univers 11:20:00 11:20:00 GABBY ity [facility] 2020-12-17 2020-12-17 Outpatient R GREEN, [facility] [id number] Univers 10:20:00 10:20:00 GABBY [facility] 2020-12-16 2020-12-16 Outpatient R ADUM, [facility] [id number] Univers 15:30:00 15:30:00 ADRIANE [facility] 2020-10-25 2020-10-25 Outpatient R ADUM, [facility] [id number] Univers 11:00:00 11:00:00 ADRIANE [facility] 2020-10-07 2020-10-07 Outpatient R ADUM, [facility] [id number] Univers 10:00:00 10:00:00 [facility] 2020-09-23 2020-09-23 Outpatient R VIKI, [facility] [id number] Univers 10:00:00 10:00:00 NADEEM [facility] 2020-09-09 2020-09-09 Outpatient R ADUM, [facility] [id number] Univers 10:30:00 10:30:00 [facility] 2020-08-31 2020-08-31 Outpatient [facility] [id number] Univers 10:10:00 10:10:00 [facility] 2020-08-23 2020-08-23 Outpatient R ADUM, [facility] [id number] Univers 13:00:00 13:00:00 ADRIANE [facility] 2020-08-02 2020-08-02 Outpatient R ADUM, [facility] [id number] Univers 08:00:00 08:00:00 ADRIANE [facility] 2020-07-20 2020-07-20 Outpatient R ADUM, [facility] [id number] Univers 16:00:00 16:00:00 [facility] 2020-07-11 2020-07-11 Nurse Nurse, [facility] [id number] 14:07:01 14:40:03 Visit [facility] [place] [id number] [facility] [id number] Professio [id number] [address] 2020-07-11 2020-07-11 Outpatient R [facility] [id number] Univers 14:00:00 14:00:00 [facility] 2020-06-30 2020-06-30 Telephone Adum, [facility] [id number] 00:00:00 00:00:00 Adriane Molina [place] [id number] [place] 4.2.7.2.686 Professio [id number] 2020-06-26 2020-06-28 Hospital Adchevy, Adriane Molina [facility] 1.2.840.11 [id number] 05:40:00 19:30:00 Encounter Monica Lozada [id number] [place] 4.2.7.2.686 [place] [id number] 2020-06-28 2020-06-28 Outpatient R [facility] [id number] Univers 11:15:00 11:15:00 [facility] 2020-06-21 2020-06-21 Routine Ad, [facility] [id number] 16:04:12 16:59:00 Adriane Molina [place] [id number] Visit [place] [id number] Professio [id number] [address] 2020-06-21 2020-06-21 Outpatient R AD, [facility] [id number] Univers 16:00:00 16:00:[facility] 2020-06-14 2020-06-14 Routine Ad, [facility] [id number] 16:12:46 17:34:28 Adriane Molina [place] [id number] Visit [place] 4.2.7.2.686 Professio [id number] [address] 2020-06-14 2020-06-14 Outpatient R AD, [facility] [id number] Univers 16:15:00 16:15:00 ADRIANE [facility] 2020-06-01 2020-06-01 Outpatient R ADUM, [facility] [id number] Univers 11:30:00 11:30:00 ADRIANE itluz [facility] 2020-05-31 2020-05-31 Outpatient R EMMETTAN, [facility] [id number] Univers 11:30:00 11:30:00 RADU marley [facility] 2020-05-17 2020-05-17 Outpatient R ADUM, [facility] [id number] Univers 16:00:00 16:00:00 [facility] 2020-05-03 2020-05-03 Outpatient R ADUM, [facility] [id number] Univers 16:15:00 16:15:00 ADRIANE [facility] 2020-04-28 2020-04-28 Outpatient R [facility] [id number] Univers 13:00:00 13:00:00 ity [facility] 2020-04-19 2020-04-19 Outpatient R ADUM, [facility] [id number] Univers 11:00:00 11:00:00 ADRIANE [facility] 2020-04-18 2020-04-18 Outpatient R ADUM, [facility] [id number] Univers 13:00:00 13:00:00 ADRIANE [facility] 2020-03-30 2020-03-30 Outpatient R ADUM, [facility] [id number] Univers 11:30:00 11:30:00 ADRIANE [facility] 2020-03-03 2020-03-03 Outpatient R [facility] [id number] Univers 15:00:00 15:00:00 ity [facility] 2020-03-02 2020-03-02 Outpatient R ADUM, [facility] [id number] Univers 13:30:00 13:30:00 ADRIANE [facility] 2020-03-01 2020-03-01 Outpatient R ADUM, [facility] [id number] Univers 16:00:00 16:00:00 ADRIANE Formerly [facility] 2020-02-29 2020-02-29 Outpatient R [facility] [id number] Univers 16:15:00 16:15:00 ity [facility] 2020-02-08 2020-02-08 Outpatient P [facility] [id number] Univers 13:00:00 13:00:00 [facility]-03 2020-02-03 Outpatient R [facility] [id number] Univers 15:15:00 15:15:00 [facility] 2020-02-02 2020-02-02 [facility] [id number] Univers 13:00:00 13:00:00 [facility] 2020-02-01 2020-02-01 Outpatient R LOWELL, [facility] [id number] Univers 15:30:00 15:30:00 COFFMAN [facility] 2020-01-06 2020-01-06 Outpatient R [facility] [id number] Univers 11:30:00 11:30:00 [facility] 2020-01-05 2020-01-05 [facility] [id number] Univers 16:30:00 16:30:00 [facility] 2019-12-09 2019-12-09 Outpatient R [facility] [id number] Univers 14:30:00 14:30:00 [facility] 2019-12-08 2019-12-08 Outpatient [facility] [id number] Univers 14:00:00 14:00:00 [facility] 2019-07-08 2019-07-08 [facility] [id number] Univers 00:00:00 00:00:00 LV [facility] 2019-06-22 2019-06-22 [facility] [id number] Univers 15:19:11 23:59:00 [facility] Results Test Description Test Time Test Comments Results Result Comments Source AG HEPATITIS B SURFACE 2019-11-16 14:32:00 Test Item Value Reference Range Interpretation Comme nts AG HEPATITIS B SURFACE (test code = HBSAG) NONREACTIVE NONREACTIVE AB HEPATITIS C [id number] 14:32:00 Test Item Value Reference Range Interpretation Comments AB HEPATITIS C (test code = NONREACTIVE NONREACTIVE HCVAB) SIGNAL TO CUTOFF (test code = <0.02 <0.80 N CUTOFF) AB [id number] 14:32:00 Test Item Value Reference Range Interpretation Comments AB TREPONEMA (test code = TREPAB) NONREACTIVE NONREACTIVE AG HEPATITIS B [id number] 13:39:00 Test Item Value Reference Range Interpretation Comments AG HEPATITIS B SURFACE (test code NONREACTIVE NONREACTIVE = HBSAG) AB HEPATITIS C [id number] 13:39:00 Test Item Value Reference Range Interpretation Comments AB HEPATITIS C (test code = HCVAB) NONREACTIVE SIGNAL TO CUTOFF (test code = CUTOFF) <0.80 AB [id number] 13:39:00 Test Item Value Reference Range Interpretation Comments AB TREPONEMA (test code = TREPAB) NONREACTIVE NONREACTIVE URINALYSIS [id number] 13:33:00 Test Item Value Reference Range Interpretation [...] = MUCU) RARE NONE SEEN CBC W/AUTO [id number] 13:03:00 Test Item Value Reference Range Interpretation [...] code = PLTMR) - MRI PELVIS W/O [id number] 21:41:00 Patient Name: RAAD BERKOWITZ Unit No: [id number] EXAMS: CPT CODE: [id number] MRI PELVIS W/O CONTRAST [id number] PROCEDURE: MRI ABDOMEN WITHOUT CONTRAST INDICATION: 19-year-old [...] Orig Print D/T: S: 11/15/2019 (2143) [facility] NAME: WOORAAD CARMENZA Radiology Department PHYS: Alo Hamm [address] : 2000 AGE: 19 SEX: F [place], [place] [address] LOC: [id number] PHONE #: [phone] EXAM DATE: 11/15/2019 STATUS: ADM IN FAX #: [phone] RAD NO: Page 1 Signed Report
[2022-04-21] MEDS ORDERED: LIDOCAINE VISCOUS 2% SOLN 15 ML UDC ONE (10:12)
[2022-04-21] MEDS ORDERED: MAGNES/ALUMIN/SIMET 30ML UCUP ONE (10:12)
[2022-04-21 10:20] LABS: Absolute Lymphocytes (CBC) 2.6 K/uL (0.7-4.9); Hematocrit 40.5 % (36.0-45.0); Lymphocytes % 32.9 % (15.3-44.8); MCV 80.9 fL (80-100); MPV 7.3 fL (7.6-11.3); RBC Red Blood Cell Count 5.01 M/uL (3.86-4.86)
[2022-04-21 10:36] LABS: Urine Blood Negative (Negative); Urine Glucose Negative (Negative); Urine Protein Negative (Negative); Urine Specific Gravity >=1.030 (1.005-1.030)
[2022-04-21 10:36] LABS: Potassium 3.9 mmol/L (3.5-5.1); Troponin High Sensitivity 3.1 pg/mL (<58.9)
--- NOTE | 2022-04-21 10:49 | RAD REPORT ---
EXAM DESCRIPTION: [place] Single View04/21/2022 10:30 am CLINICAL HISTORY: Chest pain COMPARISON: February 2022 FINDINGS: The lungs appear clear of acute infiltrate. The heart is normal size IMPRESSION: No acute abnormalities displayed
--- NOTE | 2022-04-21 11:24 | EDPHYS ---
Physician Documentation [facility] Name: Edson Juarez Age: 21 yrs Sex: Female : 2000 Arrival Date: 04/21/2022 Time: 09:19 Bed Treatment Private MD: ED Physician Asher Schwartz HPI: 04/21 09:36 This 21 yrs old Female presents to ER via Ambulatory with complaints of Chest Pain. [facility] 09:36 The patient or guardian reports chest pain that is located primarily in the substernal [facility] area. The pain does not radiate. This is a 21 year old female with no chronic medical conditions that presents to the ED with complaints of substernal chest pain which the patient states has been intermittent over the past year. Patient states pain will last for 2 hours at a time. Also states having some shortness of breath. Describes the pain as a burning pain. Denies vomiting or abdominal pain.. 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 - Social history:: Smoking status: Patient denies any tobacco usage or history of. ROS: 16:46 Constitutional: Negative for fever, chills, and weight loss. jmm 16:46 Cardiovascular: Positive for chest pain. 16:46 Respiratory: Positive for shortness of breath. 16:46 All other systems are negative. Exam: 16:46 Constitutional: This is a well developed, well nourished patient who is awake, alert, jmm and in no acute distress. Head/Face: atraumatic. Eyes: EOMI, no conjunctival erythema appreciated ENT: Moist Mucus Membranes Neck: Trachea midline, Supple Chest/axilla: Normal chest wall appearance and motion. Cardiovascular: Regular rate and rhythm. No edema appreciated Respiratory: Normal respirations, no respiratory distress appreciated Abdomen/GI: Non distended Back: Normal ROM Skin: General appearance color normal MS/ Extremity: Moves all extremities, no obvious deformities appreciated, no edema noted to the lower extremities Neuro: Awake and alert Psych: Behavior is normal, Mood is normal, Patient is cooperative and pleasant Vital Signs: 09:27 BP 144 / 88; Pulse 80; Resp 20; Temp 98.1; Pulse Ox 100% ; Weight 77.11 kg; Height 4 iw ft. 10 in. (147.32 cm); Pain 6/10; 10:37 BP 125 / 80; Pulse 87; Resp 16; Temp 98.4(O); Pulse Ox 100% on R/A; mm9 09:27 Body Mass Index 35.53 (77.11 kg, 147.32 cm) iw MDM: 09:36 Patient medically screened. [facility] 11:23 Data reviewed: vital signs, nurses notes. Counseling: I had a detailed discussion with mansi the patient and/or guardian regarding: the historical points, exam findings, and any diagnostic results supporting the discharge/admit diagnosis, the need for outpatient follow up, to return to the emergency department if symptoms worsen or persist or if there are any questions or concerns that arise at home. 04/21 09:37 Order name: Basic Metabolic Panel; Complete Time: 10:38 [facility] 04/21 09:37 Order name: CBC with Diff; Complete Time: 10:21 [facility] 04/21 09:37 Order name: Troponin HS; Complete Time: 10:38 [facility] 04/21 09:37 Order name: D-Dimer; Complete Time: 10:38 [facility] 04/21 10:36 Order name: Urine Dipstick-Ancillary; Complete Time: 10:38 [facility] 04/21 09:37 Order name: XRAY Chest (1 view); Complete Time: 10:50 [facility] 04/21 09:37 Order name: EKG; Complete Time: 09:37 [facility] 04/21 09:37 Order name: Cardiac monitoring; Complete Time: 10: [facility] 04/21 09:37 Order name: EKG - Nurse/Tech; Complete Time: 10: [facility] 04/21 09:37 Order name: IV Saline Lock; Complete Time: 10:02 [facility] 04/21 09:37 Order name: Labs collected and sent; Complete Time: 10:02 [facility] 04/21 09:37 Order name: O2 Per Protocol; Complete Time: 10: [facility] 04/21 09:37 Order name: O2 Sat Monitoring; Complete Time: 10: [facility] 04/21 09:37 Order name: Urine Dipstick-Ancillary (obtain specimen); Complete Time: 10:35 [facility] 04/21 09:37 Order name: Urine Test (obtain specimen); Complete Time: 10:35 [facility] Administered Medications: 10:18 Drug: GI Cocktail without - (Maalox Suspension 30 ml, Lidocaine Liquid 2 % 15 iw ml) Route: PO; 10:30 Follow up: Response: No adverse reaction Disposition: 04/22 08:05 Co-signature as Attending Physician, Asher Schwartz MD I agree with the assessment and [facility] plan of care. Disposition Summary: 04/21/22 11:23 Discharge Ordered Location: Home [facility] Condition: Stable [facility] Diagnosis - Chest pain, unspecified [facility] Followup: [facility] - With: Atul Montenegro MD - When: 2 - 3 days - Reason: Recheck today's complaints, Continuance of care, Re-evaluation by your physician Discharge Instructions: - Discharge Summary Sheet [facility] - Nonspecific Chest Pain, Adult [facility] Forms: - Medication Reconciliation Form [facility] - Thank You Letter [facility] - Antibiotic Education [facility] - Prescription Opioid Use [facility] - Work release form Prescriptions: - Pepcid 20 mg Oral Tablet - take 1 tablet by ORAL route every 12 hours for 1 month; 60 tablet; Refills: 0, [facility] Product Selection Permitted - orphenadrine citrate 100 mg Oral Tablet Sustained Release - take 1 tablet by ORAL route 2 times per day As needed; 20 tablet; Refills: 0, [facility] Product Selection Permitted Signatures: Dispatcher [employer] Asher Gongora MD MD cha Mickail, Joel, PA PA [facility] Nalini Francis, RN RN iw Corrections: (The following items were deleted from the chart) 04/21 16:46 09:36 This is a 21 year old female with no chronic medical conditions that presents to [facility] the ED with complaints . [facility]
--- NOTE | 2022-04-21 11:24 | ER ---
Nurse's Notes [facility] Name: Edson Juarez Age: 21 yrs Sex: Female : 2000 Arrival Date: 04/21/2022 Time: 09:19 Bed Treatment Private MD: Diagnosis: Chest pain, unspecified Presentation: 04/21 09:27 Chief complaint: Patient states: intermittent mid-sternal stinging chest pain with iw associated SOB x1 year. Reports she has been unable to find a doctor for follow up since her last ER evaluation. Coronavirus screen: Vaccine status: Patient reports receiving the 2nd dose of the covid vaccine. Client denies travel out of the [place] in the last 14 days. Ebola Screen: Patient negative for fever greater than or equal to 101.5 degrees Fahrenheit, and additional compatible Ebola Virus Disease symptoms Patient denies exposure to infectious person. Patient denies travel to an Ebola-affected area in the 21 days before illness onset. Initial Sepsis Screen: Does the patient meet any 2 criteria? No. Patient's initial sepsis screen is negative. Does the patient have a suspected source of infection? No. Patient's initial sepsis screen is negative. Risk Assessment: Do you want to hurt yourself or someone else? Patient reports no desire to harm self or others. Onset of symptoms is unknown. 09:27 Method Of Arrival: Ambulatory iw 09:27 Acuity: JOSE F 3 iw Triage Assessment: 09:33 General: Appears in no apparent distress. Behavior is calm, cooperative. Pain: iw Complains of pain in chest Pain does not radiate. Pain currently is 6 out of 10 on a pain scale. Quality of pain is described as burning, stinging, Pain began 1 year ago. Cardiovascular: Reports chest pain, shortness of breath. 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 - Social history:: Smoking status: Patient denies any tobacco usage or history of. Screenin:44 Abuse screen: Denies threats or abuse. Denies injuries from another. Nutritional iw screening: No deficits noted. Tuberculosis screening: No symptoms or risk factors identified. Fall Risk IV access (20 points). Assessment: 10:45 General: Appears in no apparent distress. Behavior is calm, cooperative. Pain: iw Complains of pain in chest. Pain: Pain does not radiate. Pain began Is intermittent. Neuro: Level of Consciousness is awake, alert, obeys commands, Oriented to person, place, time, situation, Moves all extremities. Full function. Cardiovascular: Patient's skin is warm and dry. Respiratory: Respiratory effort is even, unlabored, Respiratory pattern is regular, symmetrical. GI: Abdomen is non-distended. Derm: Skin is intact, is healthy with good turgor. Musculoskeletal: Range of motion: intact in all extremities. Vital Signs: 09:27 BP 144 / 88; Pulse 80; Resp 20; Temp 98.1; Pulse Ox 100% ; Weight 77.11 kg; Height 4 iw ft. 10 in. (147.32 cm); Pain 6/10; 10:37 BP 125 / 80; Pulse 87; Resp 16; Temp 98.4(O); Pulse Ox 100% on R/A; mm9 09:27 Body Mass Index 35.53 (77.11 kg, 147.32 cm) iw ED Course: 09:19 Patient arrived in ED. mr 09:21 Michi Hough PA is PHCP. [facility] 09:21 Asher Schwartz MD is Attending Physician. jmm 09:33 Triage completed. iw 09:33 Arm band placed on right wrist. iw 09:48 Nalini Francis, RN is Primary Nurse. iw 10:01 D-Dimer Sent. rs5 10:02 XRAY Chest (1 view) Sent. mm9 10:02 Basic Metabolic Panel Sent. rs5 10:02 CBC with Diff Sent. rs5 10:03 Troponin HS Sent. rs5 10:03 Initial lab(s) drawn, by ED staff, sent to lab. EKG done, by ED staff, reviewed by Michi AGUILAR. Inserted saline lock: 22 gauge in right antecubital area, using aseptic technique. Blood collected. 10:04 Patient has correct armband on for positive identification. Placed in gown. Bed in low mm9 position. Call light in reach. Side rails up X 1. Warm blanket given. quality assurance monitor final on. Pulse ox on. NIBP on. 10:31 XRAY Chest (1 view) In Process Unspecified. EDMS 10:35 Urine collected: clean catch specimen, clear, Test negative. rs5 11:23 Atul Montenegro MD is Referral Physician. m 11:44 No provider procedures requiring assistance completed. IV discontinued, intact, iw bleeding controlled, No redness/swelling at site. Pressure dressing applied. Patient maintains SpO2 saturation greater than 95% on room air. Administered Medications: 10:18 Drug: GI Cocktail without - (Maalox Suspension 30 ml, Lidocaine Liquid 2 % 15 iw ml) Route: PO; 10:30 Follow up: Response: No adverse reaction iw Medication: 11:00 VIS not applicable for this client. iw Outcome: 11:23 Discharge ordered by . m 11:44 Discharged to home ambulatory. iw 11:44 Condition: good 11:44 Discharge instructions given to patient, Instructed on discharge instructions, follow up and referral plans. medication usage, Demonstrated understanding of instructions, follow-up care, medications, Prescriptions given X 2. 11:45 Patient left the ED. iw Signatures: Dispatcher [employer] EDMS Michi Hough PA PA jmm Rivera, Mary mr Williams, Irene, RN RN iw Martinez, Maria mmColin Mejia rs5
[2022-04-21 12:15] VITALS: O2SAT 100
[2022-04-21 12:17] VITALS: BP 125/80; TEMP 98.4
--- NOTE | 2022-04-23 13:52 | EKG ---
Test Date: 2022-04-21 Test Time: 09:40:01 Crate Builder: CHARBEL MEASUREMENT RESULTS: Intervals: Rate: 77 NJ: 130 QRSD: 82 QT: 398 QTc: 450 [place]: P: 38 NJ: 130 QRS: 43 T: 43 INTERPRETIVE STATEMENTS: Sinus rhythm with marked sinus arrhythmia Otherwise normal ECG Compared to ECG 03/18/2022 12:25:38 No significant changes Electronically Signed On 04-23-22 13:49:56 [employer]IDE [employer] by Julian Dorado
== END 2022-04-21 11:45 | disposition home or self-care (01) ==
LOC: ER 09:17
DX: R07.89 Other chest pain (principal)
CPT/HCPCS: 36415; 71045; 80048; 81003; 84484; 85025; 85379; 93005; 99285

== ENCOUNTER → 2023-07-07 | Emergency (ER) | payer OTHER ==
[~2023-07-07] MED LIST: DIPHENHYDRAMINE 50 MG/ML VIAL ONE; KETOROLAC 30 MG/ML INJ ONE; METOCLOPRAMIDE 10 MG/2mL INJ ONE; MORPHINE 4 MG/ML SYR ONE; NA CHLORIDE 0.9% 1,000 ML ONE
--- OUTSIDE RECORDS SUMMARY | 2023-07-07 20:38 | XMS REPORT | Continuity of Care Document ---
Author Name Unknown Address [address] [facility] [address] [place] [address] [facility] thconnect Address [address] [facility] [address] [place] [address] Care Team Providers Care Wheel Polisher Name Role Phone JANIS BELTRE Primary Care Physician Marianna Alo Sewell Attending Clinician UnavailCARLOS Valentino Attending Clinician Unavailable Carlos Elizalde MD Attending Clinician [phone] Brenda Martínez RN Attending Clinician Unavaila MILAGRO Araiza Attending Clinician UnavailMilagro Malave Attending Clinician [phone] Doctor Unassigned, [place] Attending Clinician U navailable GABBY STILES Attending Clinician Unavailable Gabby Ward Attending Clinician [phone] Arti Lopez Attending Clinician [phone] ADRIANE ENGLAND Attending Clinician Unavailable Jasmin Pyle RN Attending Clinician Unavailable Only, Ang Db Test Attending Clinician UnavailStephen Baca MD Attending Clinician [phone] STEPHEN SHEIKH Attending Clinician Unavailable Adriane England MD Attending Clinician [phone] Unknown, Attending Attending Clinician Unavailab LEROY Unger Attending Clinician Unavailable Nurse, [facility] Attending Clinician Un available Neville HARRIS, Monica Nieves Attending Clinician [phone] RADU KERN Attending Clinician Unavailable AUGUSTUS ETIENEN Attending Clinician Unavailsusy e LV MAST Attending Clinician UnavailADRIANE aRy Admitting Clinician Unavailable Alo Gonsalez Admitting Clinician UnavailMonica Leroy MD Admitting Clinician [phone] LV MAST Admitting Clinician Unavailsusy e Payers Payer Name Policy Type Policy Number Effective Date Expirati on Date Source AETNA CHOICE POS II [id number] 2020 00:00:00 [facility] [id number] 2020 00:00:00 [employer] [place] [id number] 2018 00:00:00 Problems Condition Name Condition Details Condition Category Status Onset Date Resolution Date Last Treatment Date Treating Clinician Comments Source Other depression Other depression Disease Active 10-25 00:00: 00 [facility] Obesity (BMI 30-39.9) Obesity (BMI 30-39.9) Disease Active 4- 00:00: 00 [facility] Allergies, Adverse Reactions, Alerts Allergy Name Allergy Type Status Severity Reaction(s) Onset Date Inactive Date Treating Clinician Comments Source No Known Allergie s DA Active U 11-14 00:00: 00 [facility] No Known Allergie s DA Active U 11-14 00:00: 00 [facility] NO KNOWN ALLERGIE S Drug Class Active [facility] Social History Social Habit Start Date Stop Date Quantity Comments Source History SDOH Alcohol Std Drinks [facility] History SDOH Alcohol Binge [facility] History SDOH Alcohol Comment [employer] [facility] History of tobacco use Occasional tobacco smoker [facility] Exposure to SARS-CoV-2 (event) 2022-06-06 00:00:00 2022-06-16 20:55:00 Not sure [facility] Alcohol intake 2021-11-14 00:00:00 2021-11-14 00:00:00 Lifetime non-drinker (finding) [facility] Tobacco use and exposure 2021-05-03 00:00:00 2021-05-03 00:00:00 Smokeless tobacco non-user [facility] Tobacco Comment 2021-05-03 00:00:00 2021-05-03 00:00:00 1 cig occasional [facility] History SDOH Alcohol Frequency 2019-12-08 00:00:00 2019-12-08 00:00:00 1 [facility] Sex Assigned At 2000 00:00:00 2000 00:00:00 [facility] Smoking Status Start Date Stop Date Source Occasional tobacco smoker 2021-05-03 00:00:00 [facility] Medications Ordered Medication Name Filled Medication Name Start Date Stop Date Current Medication? Ordering Clinician Indication Dosage Frequency Signature (SIG) Comments Components Source proMETHazin e 12.5 mg tablet 11-14 00:00: 00 Yes [id number] 12.5mg Take 1 tablet by mouth every 6 (six) hours as needed for Nausea and Vomiting (N/V). [facility] proMETHazin e 12.5 mg tablet 11-14 00:00: 00 Yes [id number] 12.5mg Take 1 tablet by mouth every 6 (six) hours as needed for Nausea and Vomiting (N/V). [facility] proMETHazin e 12.5 mg tablet 11-14 00:00: 00 Yes [id number] 12.5mg Take 1 tablet by mouth every 6 (six) hours as needed for Nausea and Vomiting (N/V). [facility] azithromyci n 250 mg tablet 11-14 00:00: 00 11-20 04:59 :00 No [id number] Take 2 tablets by mouth daily for 1 day, THEN 1 tablet daily for 4 days. [facility] azithromyci n 250 mg tablet 11-14 00:00: 00 11-20 04:59 :00 No [id number] Take 2 tablets by mouth daily for 1 day, THEN 1 tablet daily for 4 days. [facility] escitalopra m oxalate 10 mg tablet 10-25 00:00: 00 Yes [id number] 10mg Take 1 tablet by mouth daily. [facility] escitalopra m oxalate 10 mg tablet 10-25 00:00: 00 Yes [id number] 10mg Take 1 tablet by mouth daily. [facility] escitalopra m oxalate 10 mg tablet 10-25 00:00: 00 Yes [id number] 10mg Take 1 tablet by mouth daily. [facility] escitalopra m oxalate 10 mg tablet 10-25 00:00: 00 Yes [id number] 10mg Take 1 tablet by mouth daily. [facility] escitalopra m oxalate 10 mg tablet 10-25 00:00: 00 Yes [id number] 10mg Take 1 tablet by mouth daily. [facility] azithromyci n 250 mg tablet 10-20 00:00: 00 Yes [facility] bromphenira mine-pseudo ephedrine-D M 2-30-10 mg/5 mL syrup 10-20 00:00: 00 Yes [facility] azithromyci n 250 mg tablet 10-20 00:00: 00 Yes [facility] bromphenira mine-pseudo ephedrine-D M 2-30-10 mg/5 mL syrup 10-20 00:00: 00 Yes [facility] azithromyci n 250 mg tablet 10-20 00:00: 00 11-14 00:00 :00 No [facility] bromphenira mine-pseudo ephedrine-D M 2-30-10 mg/5 mL syrup 10-20 00:00: 00 11-14 00:00 :00 No [facility] Vital Signs Vital Name Observation Time Observation Value Comments S chasityce Systolic blood pressure 2022-06-17 05:56:00 138 mm[Hg] [facility] Diastolic blood pressure 2022-06-17 05:56:00 102 mm[Hg] [facility] Heart rate 2022-06-17 05:56:00 104 /min [facility] Respiratory rate 2022-06-17 05:56:00 18 /min [facility] Oxygen saturation in Arterial blood by Pulse oximetry 2022-06-17 05:56:00 99 /min [facility] Body temperature 2022-06-17 02:53:00 37.22 Marta [facility] Body height 2022-06-17 02:53:00 157.5 cm [facility] Body weight 2022-06-17 02:53:00 72.576 kg [facility] BMI 2022-06-17 02:53:00 29.26 kg/m2 [facility] Systolic blood pressure 2021-11-14 19:02:00 128 mm[Hg] [facility] Diastolic blood pressure 2021-11-14 19:02:00 85 mm[Hg] [facility] Heart rate 2021-11-14 19:02:00 84 /min [facility] Body temperature 2021-11-14 19:02:00 36.94 Marta [facility] Respiratory rate 2021-11-14 19:02:00 17 /min [facility] Body height 2021-11-14 19:02:00 144.8 cm [facility] Body weight 2021-11-14 19:02:00 79.039 kg [facility] BMI 2021-11-14 19:02:00 37.71 kg/m2 [facility] Body mass index (BMI) [Percentile] Per age and sex 2021-11-14 19:02:00 98.10 % [facility] Oxygen saturation in Arterial blood by Pulse oximetry 2021-11-14 19:02:00 99 /min [facility] Systolic blood pressure 2021-10-11 19:21:00 126 mm[Hg] [facility] Diastolic blood pressure 2021-10-11 19:21:00 89 mm[Hg] [facility] Heart rate 2021-10-11 19:21:00 98 /min [facility] Body temperature 2021-10-11 19:21:00 37.11 Marta [facility] Respiratory rate 2021-10-11 19:21:00 16 /min [facility] Body height 2021-10-11 19:21:00 144.8 cm [facility] Body weight 2021-10-11 19:21:00 79.89 kg [facility] BMI 2021-10-11 19:21:00 38.11 kg/m2 [facility] Body mass index (BMI) [Percentile] Per age and sex 2021-10-11 19:21:00 98.22 % [facility] Oxygen saturation in Arterial blood by Pulse oximetry 2021-10-11 19:21:00 97 /min [facility] Procedures Procedure Date / Time Performed Performing Clinicia n Source CONSENT/REFUSAL FOR DIAGNOSIS AND TREATMENT 2022-06-17 02:34:13 Doctor Unassigned, [place] [facility] ASSIGNMENT OF BENEFITS 2021-11-14 18:55:13 Docto r Unassigned, [place] [facility] Encounters Start Date/Time End Date/Time Encounter Type Admission Type Attending Clinicians Care Facility Care Department Encounter ID Source 2021-03-18 20:10:05 Outpatient P [facility] EDDIE [id number] [facility] 2021-03-18 20:03:57 Outpatient P [facility] [id number] [facility] 2019-11-15 18:50:00 Inpatient EM Alo Gonsalez [facility] [id number] [facility] 2022-06-16 21:08:00 2022-06-17 00:34:00 Emergency X CARLOS ELIZALDE [facility] ERT [id number] [facility] 2022-06-16 21:08:00 2022-06-17 00:34:00 Emergency Carlos Elizalde [facility] 1.2.840.114 350.1.13.10 4.2.7.2.686 [id number] [facility] 2021-11-15 00:00:00 2021-11-15 00:00:00 Telephone Brenda Martínez [facility] 1.2.840.114 350.1.13.10 4.2.7.2.686 [id number] [facility] 2021-11-14 14:00:00 2021-11-14 14:29:58 Outpatient R FLOR MILAGRO [facility] [id number] [facility] 2021-11-14 14:00:00 2021-11-14 14:20:00 Urgent Care [facility] 1..840.114 350.1.13.10 4.2.7.2.686 [id number] [facility] 2021-11-14 00:00:00 2021-11-14 00:00:00 Orders Only Doctor Unassigned, [place] [facility] 1..840.114 350.1.13.10 4.2.7.2.686 [id number] [facility] 2021-10-11 14:20:00 2021-10-11 14:44:09 Outpatient R GO GABBY [facility] [id number] [facility] 2021-10-11 14:20:00 2021-10-11 14:44:09 [facility] 1..840.114 350.1.13.10 4.2.7.2.686 [id number] [facility] 2021-10-11 14:20:00 2021-10-11 14:44:09 Outpatient R GABBY STILES [facility] [id number] [facility] 2021-10-11 00:00:00 2021-10-11 00:00:00 Orders Only Doctor Unassigned, [place] [facility] 1.840.114 350.1.13.10 4.2.7.2.686 [id number] [facility] 2021-09-05 13:00:00 2021-09-05 13:00:00 Outpatient R ADRIANE ENGLAND [facility] [id number] [facility] 2021-06-07 00:00:00 2021-06-07 00:00:00 Telephone LashandaJasmin alston [facility] 1.840.114 350.1.13.10 4.2.7.2.686 [id number] [facility] 2021-06-05 14:15:00 2021-06-05 14:30:00 Laboratory Only Only, [facility] 1.840.114 350.1.13.10 4.2.7.2.686 [id number] [facility] 2021-06-05 14:15:00 2021-06-05 14:27:42 Outpatient STEPHEN VELOZ [facility] [id number] [facility] 2021-06-05 14:15:00 2021-06-05 14:15:00 Outpatient STEPHEN VELOZ [facility] [id number] [facility] 2021-05-03 15:00:00 2021-05-03 15:57:50 Outpatient R ADRIANE ENGLAND [facility] [id number] [facility] 2021-05-03 15:00:00 2021-05-03 15:57:50 Office [facility] Adriane [facility] 1.840.114 350.1.13.10 4.2.7.2.686 [id number] [facility] 2021-05-03 15:00:00 2021-05-03 15:57:50 Outpatient R ADRIANE ENGLAND [facility] [id number] [facility] 2021-04-24 15:20:00 2021-04-24 18:23:19 Outpatient R MILAGRO RAY [facility] [id number] [facility] 2021-04-24 15:20:00 2021-04-24 18:23:19 Outpatient R MILAGRO RAY [facility] [id number] [facility] 2021-04-24 15:22:18 2021-04-24 15:42:18 Urgent Care Milagro Ray Unknown, Attending [facility] 1.2.840.114 350.1.13.10 4.2.7.2.686 [id number] [facility] 2021-04-24 00:00:00 2021-04-24 00:00:00 Orders Only Doctor Unassigned, [place] [facility] 1.2.840.114 350.1.13.10 4.2.7.2.686 [id number] [facility] 2020-12-17 11:20:00 2020-12-17 11:48:42 Outpatient R GABBY STILES [facility] [id number] [facility] 2020-12-17 11:20:00 2020-12-17 11:20:00 Outpatient R GABBY STILES [facility] [id number] [facility] 2020-12-17 10:20:00 2020-12-17 10:20:00 Outpatient R GABBY STILES [facility] [id number] [facility] 2020-12-16 15:30:00 2020-12-16 15:30:00 Outpatient R TOMÁS [facility] [id number] [facility] 2020-10-25 11:00:00 2020-10-25 11:00:00 Outpatient R TOMÁS [facility] [id number] [facility] 2020-10-07 10:00:00 2020-10-07 10:00:00 Outpatient R ADRIANE ENGLAND [facility] [id number] [facility] 2020-09-23 10:00:00 2020-09-23 10:00:00 Outpatient R VIKILEROY TYSON [facility] [id number] [facility] 2020-09-09 10:30:00 2020-09-09 10:30:00 Outpatient R ADRIANE ENGLAND [facility] [id number] [facility] 2020-08-31 10:10:00 2020-08-31 10:10:00 Outpatient [facility] [id number] [facility] 2020-08-23 13:00:00 2020-08-23 13:00:00 Outpatient R TOMÁS ADRIANE [facility] [id number] [facility] 2020-08-02 08:00:00 2020-08-02 08:00:00 Outpatient R ADRIANE ENGLAND [facility] [id number] [facility] 2020-07-20 16:00:00 2020-07-20 16:00:00 Outpatient R ADRIANE ENGLAND [facility] [id number] [facility] 2020-07-11 14:07:01 2020-07-11 14:40:03 Nurse Visit Nurse, [facility] 1.2.840.114 350.1.13.10 4.2.7.2.686 [id number] 2020-07-11 14:00:00 2020-07-11 14:00:00 Outpatient R [facility] [id number] [facility] 2020-06-30 00:00:00 2020-06-30 00:00:00 Telephone Tomás Adriane [facility] 12.840.114 350.1.13.10 4.2.7.2.686 [id number] 2020-06-26 05:40:00 2020-06-28 19:30:00 Hospital Encounter Adum, Monica Navarre[facility] 1.2.840.114 350.1.13.10 4.2.7.2.686 [id number] 2020-06-28 11:15:00 2020-06-28 11:15:00 Outpatient R [facility] [id number] [facility] 2020-06-21 16:04:12 2020-06-21 16:59:00 Routine Visit Adum, Adriane Molina [facility] 1.2.840.114 350.1.13.10 4.2.7.2.686 [id number] 2020-06-21 16:00:00 2020-06-21 16:00:00 Outpatient R TOMÁS ADRIANE [facility] [id number] [facility] 2020-06-14 16:12:46 2020-06-14 17:34:28 Routine Visit Adum, Adriane Molina [facility] 1.2.840.114 350.1.13.10 4.2.7.2.686 [id number] 2020-06-14 16:15:00 2020-06-14 16:15:00 Outpatient R MARIOLACELINA ADRIANE [facility] [id number] [facility] 2020-06-01 11:30:00 2020-06-01 11:30:00 Outpatient R TOMÁS ADRIANE [facility] [id number] [facility] 2020-05-31 11:30:00 2020-05-31 11:30:00 Outpatient R RADU KERN [facility] [id number] [facility] 2020-05-17 16:00:00 2020-05-17 16:00:00 Outpatient R TOMÁS ADRIANE [facility] [id number] [facility] 2020-05-03 16:15:00 2020-05-03 16:15:00 Outpatient R ADUM, ADRIANE [facility] [id number] [facility] 2020-04-28 13:00:00 2020-04-28 13:00:00 Outpatient R [facility] [id number] [facility] 2020-04-19 11:00:00 2020-04-19 11:00:00 Outpatient R ADUM, ADRIANE [facility] [id number] [facility] 2020-04-18 13:00:00 2020-04-18 13:00:00 Outpatient R ADUM, ADRIANE [facility] [id number] [facility] 2020-03-30 11:30:00 2020-03-30 11:30:00 Outpatient R ADUM, ADRIANE [facility] [id number] [facility] 2020-03-03 15:00:00 2020-03-03 15:00:00 Outpatient R [facility] [id number] [facility] 2020-03-02 13:30:00 2020-03-02 13:30:00 Outpatient R ADUMADRIANE [facility] [id number] [facility] 2020-03-01 16:00:00 2020-03-01 16:00:00 Outpatient R ADUM, ADRIANE [facility] [id number] [facility] 2020-02-29 16:15:00 2020-02-29 16:15:00 Outpatient R [facility] [id number] [facility] 2020-02-08 13:00:00 2020-02-08 13:00:00 [facility] [id number] [facility] 2020-02-03 15:15:00 2020-02-03 15:15:00 Outpatient R [facility] [id number] [facility] 2020-02-02 13:00:00 2020-02-02 13:00:00 Outpatient R ADUM, ADRIANE [facility] [id number] [facility] 2020-02-01 15:30:00 2020-02-01 15:30:00 Outpatient R HARIRAH, COFFMAN [facility] [id number] [facility] 2020-01-06 11:30:00 2020-01-06 11:30:00 Outpatient R [facility] [id number] [facility] 2020-01-05 16:30:00 2020-01-05 16:30:00 Outpatient R ADRIANE ENGLAND [facility] [id number] [facility] 2019-12-09 14:30:00 2019-12-09 14:30:00 Outpatient R [facility] [id number] [facility] 2019-12-08 14:00:00 2019-12-08 14:00:00 Outpatient R ADRIANE ENGLAND [facility] [id number] [facility] 2019-07-08 00:00:00 2019-07-08 00:00:00 Outpatient R ATTILAMARTA LV [facility] [id number] [facility] 2019-06-22 15:19:11 2019-06-22 23:59:00 Outpatient R ATTILAMARTA LV [facility] [id number] [facility] Results Test Description Test Time Test Comments Results Result Co mments Source AB HEPATITIS C [id number] 14:32:00* Test Item Value Reference Range Interpretation Comme nts AB HEPATITIS C (test code = HCVAB) NONREACTIVE NONREACTIVE SIGNAL TO CUTOFF (test code = CUTOFF) <0.02 <0.80 N AB [id number] 14:32:00* Test Item Value Reference Range Interpretation Comme nts AB TREPONEMA (test code = TREPAB) NONREACTIVE NONREACTIVE AG HEPATITIS B [id number] 13:39:00* Test Item Value Reference Range Interpretation Comme nts AG HEPATITIS B SURFACE (test code = HBSAG) NONREACTIVE NONREACTIVE AB HEPATITIS C [id number] 13:39:00* Test Item Value Reference Range Interpretation Comme nts AB HEPATITIS C (test code = HCVAB) NONREACTIVE SIGNAL TO CUTOFF (test code = CUTOFF) <0.80 AB [id number] 13:39:00* Test Item Value Reference Range Interpretation Comme nts AB TREPONEMA (test code = TREPAB) NONREACTIVE NONREACTIVE URINALYSIS [id number] 13:33:00* Test Item Value Reference Range Interpretation Comme nts UA COLOR (test code = COLU) YELLOW YELLOW UA APPEARANCE (test code = APPU) CLEAR CLEAR UA GLUCOSE DIPSTICK (test co de = DGLUU) NEGATIVE NEG UA BILIRUBIN DIPSTICK (test code = BILU) NEGATIVE NEG UA KETONE DIPSTICK (test cod e = KETU) NEGATIVE NEG UA SPECIFIC GRAVITY (test co de = SGU) 1.009 1.001-1.035 N UA BLOOD DIPSTICK (test code = BAUDILIO) NEG NEG UA PH DIPSTICK (test code = MAXX) 6.0 5-9 UA PROTEIN DIPSTICK (test co de = PROU) NEGATIVE NEG UA UROBILINIOGEN DIPSTICK (t est code = URO) 4.0 mg/dL NEG A UA NITRITE DIPSTICK (test co de = MIR) NEG NEG UA LEUKOCYTE ESTERASE DIPSTI CK (test code = LEUU) 2+ NEG A UA WBC (test code = WBCU) 21-30 #/hpf NONE SEEN A UA RBC (test code = RBCU) 0-2 #/hpf NONE SEEN UA EPITHELIAL CELLS (test co de = EPIU) FEW #/HPF RARE-FEW UA BACTERIA (test code = BACU) RARE /HPF RARE-FEW UA MUCUS (test code = MUCU) RARE NONE SEEN CBC W/AUTO [id number] 13:03:00* Test Item Value Reference Range Interpretation Comme nts WHITE BLOOD CELL (test code = WBC) [...] pg 26-32 N MEAN CELL HGB CONCETRATION ( test code = MCHC) 33.3 gm/dL 32-35 N RED CELL DISTRIBUTION WIDTH (test code = RDW) 11.8 % 12.4-16.5 L PLATELET COUNT (test code = PLT) 341 K/mm3 135-380 N MEAN PLATELET VOLUME (test c ode = MPV) 9.4 fl 9.1-12.7 N NEUTROPHIL % (test code = NT%) 63.1 [...] = BA#) 0.1 K/mm3 RBC MORPHOLOGY REQUIRED (milo t code = RBCM) NORMAL NORMAL PLATELET MORPHOLOGY REQUIRED (test code = PLTMR) NORMAL NORMAL - MRI PELVIS W/O [id number] 21:41:00Patient Name: RAAD BERKOWITZ Unit No: [id number] EXAMS: CPT CODE: [id number] MRI PELVIS W/O CONTRAST [id number] PROCEDURE: MRI ABDOMEN WITHOUT CONTRAST INDICATION: 19-year-old [...] visualized bowel is otherwise unremarkable. There is nofree intraperitoneal fluid or focal fluid collection. Examination ultrasound for survey of the upper abdominal viscera. Visualized portions of the liver, gallbladder, pancreas, spleen and kidneys are unremarkable. There is no hydronephrosis or perinephric fluid collection. Examination not designed for survey of the gravid uterus. Circumscribed fluid collection in the endometrial cavity compatiblewith 1st trimester intrauterine . Cervix appears closed. [...] to account for the patient's symptoms. SL: KL-H at 2140 Reported and signed by: Saqib Hendrickson MD CC: Alo Gonsalez MD Technologist: Hailey Silva, RT,MR,CT Trnscrbd D/ (2140) tJOESPH Orig Print D/T: S: 11/15/2019 (2143) [facility] NAME: RAAD BERKOWITZ Radiology Department PHYS: Alo Gonsalez [address] : 2000 AGE: 19 SEX: F [place], [place] [address] LOC: Carey A PHONE #: [phone] EXAM DATE: 11/15/2019STATUS: ADM IN FAX #: [phone] RAD NO: Page 1 Signed Report Notes Date/Time Note Provider Source 2019-11-16 12:17:00 [id number] TsheCNFcWUZEWt2UrlM9m3R7KTQcm h5kIl2cXmkB8QpHLxr4ICK/ysPh0uHESmT4294-29-97L11:1 7:00 [facility]DT Consult NoteREPORT#:[id number] REPORT STATUS: SignedDATE:11/16/19 TIME: 1217 PATIENT: RAAD BERKOWITZ UNIT #: [id number]#: [id number] ROOM/BED: [facility]-ADOB: [birth year] AGE: 19 SEX: F ATTEND: Alo Gonsalez [facility] AUTHOR: Rae Holliday MD * ALL edits or amendments must be made on the electronic/computer document * CONSULT NOTEProblem List/A P: 1. Nausea vomiting 2. Leukocytosis (leucocytosis) 3. Abdominal pain Note:Consult: Gynecology--see meat smoker progress note at 1217 RPT #:[id number] OF REPORT [id number]:17:00F.[id number] 198AVAvailable for patient auglAZNILBKOQGYZDF5492-69-39E57:18:07 [facility] 2019-11-16 12:17:00 [id number] jenqPxAQCsJUMBjDX3yGv9ZBBpmRw ZUI2TY+RxQ50yV+uv5Y6ch+FYMthG9zdQZ1103-63-72R57:1 7:00 [facility]Gyne[facility] Progress NoteREPORT#:[id number] REPORT STATUS: SignedDATE:11/16/19 TIME: 1217 PATIENT: RAAD BERKOWITZ UNIT #: [id number]#: [id number] ROOM/BED: [facility]-ADOB: [birth year] AGE: 19 SEX: F ATTEND: Alo Gonsalez [facility] AUTHOR: Rae Holliday MD * ALL edits or amendments must be made on the electronic/computer document * SubjectiveChief Complaint:abdominal pain, N/V 2 weeksPatient reports:Yes: abdominal pain, ambulating, flatus/bowel movement, voiding/urinating. No: complaints, chills, fever, headache, nausea, pain controlled, pelvic pain, tolerating diet, vaginal bleeding, vomiting. Comments:19 yo G1, LMP in September sometime, ultrasound from [facility] c/w 6 w 6 d, EDC 07/04/2020. Pt having N/V--she thought just from the , but then unable to sleep/eat/drink and having abd pain. The pain became quite severe and she went to the ER. The pain is described as in a belt distribution at umbilicus,but not extending to her back. She states she has never had back pain. Her pain has resolved, and she has been able to eat last night and this am. She had a half a sandwich last night. She reports no further N/V, but had diarrhea this am, and again just went BM. Her pain respolved in the ambulance on the way here. The patient denies sick contacts. She ate out at [employer] (had breadsticks and little chicke parm) 4 days ago, but no one else sick afterwards. She lives in a house with her grandparents. She denies well water, just usual tap. No VB/ROM. Some vaginal discharge--white/no odor/no itch, a little more than usual. Denies any skin issues, no v/v issues. 2 days ago she reports having a sore throat, but this resolved and she has no trouble swallowing. No tooth problems. In ER us showed . Here an MRI was done to r/o appy--appy looks nl, small cl cyst. PMHx ADHD (no meds in 4-5 months)PSHx negativeMeds took Pepto Bismol tablet and a dissolve tablet for nausea her Gpa gave her (thinks was OTC med)NKDASoc will be a Sr in , FOB is 19 yo, she considers him her boyfriend, She met him 4 years ago at a mall, he was a friend of a friend/family friend. She has mixed emotions about the , but plans to keep the baby. Lives with her Gma (not biological as her mo was adopted), Gma is legal guardian. Denies smoking.EtOH/DU, denies MJ useFHx: unsure as her mom was adopted. Review of SystemsConstitutional:Denies: chills, fatigue, fever, malaise. Skin:Denies: bruising, itching, laceration, rash, swelling. Allergy/Immun:Denies: itching, rhinorrhea, sneezing. Eyes:Denies: visual loss/blurred, swelling. ENT:Denies: ear ringing, sore throat, throat pain. Respiratory:Denies: non productive cough, pneumonia, productive cough (sputum), SOB. Cardiovascular:Denies: chest pain, edema, palpitations. GI:Reports: diarrhea. Denies: abdominal pain, anorexia, constipation, nausea, vomiting. :Reports: , vaginal discharge. Denies: dysuria, flank pain, hematuria, pelvic pain, vaginal bleeding. Musculoskeletal: Arthritis: Denies: left upper, left lower, right upper, right lower, bilateral. Joint swelling: Denies: left upper, left lower, right upper, right lower, bilateral. Heme:Denies: bruising. Neuro:Denies: dizziness, gait problem, headache, syncope, unable to speak, vision change. Objective GeneralVS/I O:Last Documented: Result Date Time Pulse Ox 99 11/15 417 B/P 83/52 11/15 417 B/P Mean 62 11/15 417 O2 Delivery Room air 11/15 417 Temp 98.0 11/15 417 Pulse 71 11/15 417 Resp 18 11/15 417 24 hour I O ending at 0700: 11/15 0700 11/14 1900 Intake Total 514.11 Output Total Balance 514.11 Intake, IV 514.11 Patient 70 kg Weight Weight Bed scale Measurement Method Patient Weight Weight (lb): 154Weight (oz): 5.18Weight (kg): 70.000 Medications:Active Meds + DC'd Last 24 HrsPromethazine HCl 12.5 MG Q6H PRN PRN IV Sodium Chloride 50 MLLidocaine/Prilocaine 1 APPLIC ONCE PRN TOPICAL (CKD) Potassium Chloride/Dextrose/Sod Cl 1,000 ML ASDIR IV (CKD) Nutrition assessment:The data set between the solid lines has been imported from the dietitian's assessment. Any exceptions have been noted under Provider comments. BMI Calculated: 33.4 Nutrition related diagnosis: Nutrition diagnosis details: Nutrition problem: Nutrition etiology: Nutrition signs and symptoms: Nutrition prescription: Dietitian name: Assessment completed: Provider comments on imported dietitian assessment: Physical ExamGeneral appearance: alert, awake, oriented, no acute distress, pleasant, conversational, mental status normal, no respiratory distressHEENT: anicteric, moist mucosal membranes, sclera clearNeck: non-tender, normal thyroid, supple, no lymphadenopathyCardiovascular: regular rate rhythmRespiratory: aerating well, symmetric expansion, no distressAbdomen: non-tender, soft, no CVA tenderness, no distention, no guardingExtremities: full range of motion, moves all, no calf tenderness, no edemaNeuro/LAND SURVEYING MANAGER: alert, oriented X 3, normal speech, CN II-XII grossly intact, nl gaitSkin: normal color, normal temperature, normal turgor, no rashGenitourinary: no flank pain, no foleyExternal genitalia: vulvar exam normal, no lesions, no ecchymosis, no erythema, white discharge, +whiffVagina: normal ResultsFindings/Data:Microbiology Date/Time Procedure - Status Source Growth 11/15 437 GC DNA Probe - COMP URINE 11/15 437 Chlamydia DNA Probe (SONALI) - COMP URINE Gc/Chl negative Labs from [facility]: HCT 42.5hb 14.3WBC 18.3plt 473 covid negativeNa 134, K 3.7, BUN 11, Cr .6, Gluc 71UA 4+ketones, 10-20 WBC, neg Le/neg nitr HCG>60,000 Diagnosis, Assessment PlanProblem List/A P: 1. Nausea vomiting 2. Leukocytosis (leucocytosis) 3. Loose stools 4. Vaginal discharge 5. Ketonuria 6. Leukocytes in urine Free Text A P:Most of the patient's symptoms have resolved. Currently no N/V, no abd pain. Pt states feels well enough that if labs alright she would be alright going home. N/V--recommend trying Diclegis as first line treatment in (Diclegis 02/26 1-2 po qhs) Leukocytosis/ketonuria--recheck both CBC and UA (ordered), in first trimester upper normal WBC is 14. HH and plt also elevated so possible dehydration effect.Recheck urine to see if ketones in urine resolve. May need further hydration (could be PO) 2 loose stools this am, but no BM in 4 days (also not eating much). Pt took pepto bismol and another med (unsure if BMs a result of this), pt had a BM--I asked her not to flush--was small, formed, nonbloody, not dark. If continues--consider stool studies. Vaginal discharge--Gc/Chl neg, checking wet mount, +whiff, but do not recommend Flagyl in the first trimester, so if clue cells can treat with cleocin gel. Orders: Procedure Date/time Status WET MOUNT 11/15 1216 Active at 1249 RPT #:[id number] OF REPORT PRProgress Fxik7342-21-64R47:17:00F.[id number] able for patient fpqrREDIXQENBERTDM4671-07-08L82:49:43 [facility] 2019-11-16 12:17:00 [id number] 9i5hvdAXH6IfoQLCqzQ2GwKOtX7N+ dOOTmD2PHYNj12zT/61yNo7gPZY8eDKVXN5325-65-39Y63:1 7:00 [facility] ([facility])DT Consult NoteREPORT#:[id number] REPORT STATUS: SignedDATE:11/16/19 TIME: 1216 PATIENT: RAAD BERKOWITZ UNIT #: [id number]#: [id number] ROOM/BED: [facility]-ADOB: [birth year] AGE: 19 SEX: F ATTEND: Alo Gonsalez [facility] AUTHOR: Rae Holliday MD * ALL edits or amendments must be made on the electronic/computer document * See AddendumCONSULT NOTEProblem List/A P: 1. Nausea vomiting 2. Leukocytosis (leucocytosis) 3. Abdominal pain Note:Consult: Gynecology--see meat smoker progress note at 1217 Addendum 1: 11/16/19 1342 by Rae Holliday MD UA c/w UTI, 20-30 WBC--> would give a few doses of IV abx, then when d/c home, place on Macrobid. at 1343 RPT #:[id number] OF REPORT DQGymvmqryxcey4760-18-21P90:17:00F.[id number] 198AVAvailable for patient gghjFFQXSADIMFEKYZ9939-55-75Z18:43:36 [facility] 2019-11-16 11:26:00 [id number] RwIcJd6hOdnGOjzQf96cA61QVsTc6 IfF/42jOH4TdByj/33EUr7GQXmyCqvHCSY3888-67-38I79:2 6:00 [facility] ([facility])Pediatric Progress NoteREPORT#:[id number] REPORT STATUS: SignedDATE:11/16/19 TIME: 1126 PATIENT: RAAD BERKOWITZ UNIT #: [id number]#: [id number] [address]: [address] AGE: 19 SEX: F ATTEND: Alo Gonsalez [facility] AUTHOR: Yue Ahmadi MD R1 * ALL edits or amendments must be made on the electronic/computer document * SubjectiveChief complaint:abdominal pain n/vComments:No acute events overnight. Patient reports still having abdominal pain and occasional nausea Review of SystemsConstitutional:Reports: decreased appetite. Denies: chills, decreased activity, fever. Skin:Denies: itching, rash, swelling. Respiratory:Denies: cough, productive cough (sputum), SOB. GI:Reports: abdominal pain. Denies: constipation, diarrhea, nausea, vomiting. Neuro:Denies: headache. Other system:Gu- reports white vaginal discharge, no smell, cramping and suprapubic pain denies- bleeding Objective GeneralVS/I O:Vital Signs: Date Time Temp Pulse Resp B/P B/P Pulse O2 O2 Flow FiO2 Mean Ox Delivery Rate 11/15 0418 98.0 71 18 83/52 62 99 Room air 11/15 0000 96.4 86 20 120/69 86 100 Room air 11/14 1930 97.6 75 19 111/72 85 100 Room air 24 hour I O ending at 0700: 11/15 0700 11/14 1900 Intake Total 514.11 Output Total Balance 514.11 Intake, IV 514.11 Patient 154 lb Weight Weight Bed scale Measurement Method PEWS Score(Data from Nursing Documentation ) Behavior: 0 Cardiovascular: 0 Respiratory: 0 Receiving Q15 minute nebulizers: 0 Persistent vomiting following surgery: 0 Total PEWS score: 0 Patient Weight Weight (lb): 154Weight (oz): 5.18Weight (kg): 70.000 Medications:Active Meds + DC'd Last 24 HrsCefazolin Sodium 1 GM Q6H IV (UNV) Sterile Water 10 MLNitrofurantoin Macrocrystals 100 MG Q12H PO (CANr) Promethazine HCl 12.5 MG Q6H PRN PRN IV Sodium Chloride 50 MLLidocaine/Prilocaine 1 APPLIC ONCE PRN TOPICAL (CKD) Potassium Chloride/Dextrose/Sod Cl 1,000 ML ASDIR IV (CKD) Nutrition assessment:The data set between the solid lines has been imported from the dietitian's assessment. Any exceptions have been noted under Provider comments. BMI Calculated: 33.4 Nutrition related diagnosis: Nutrition diagnosis details: Nutrition problem: Nutrition etiology: Nutrition signs and symptoms: Nutrition prescription: Dietitian name: Assessment completed: Provider comments on imported dietitian assessment: Physical ExamGeneral: appropriate, no apparent distress, no irritability, oriented, well appearingHead/eyes: atraumatic, EOMI, normocephalicENT: mucous memb pink moist, normal pharynxCardiovascular: pulses equal bilaterally, normal capillary refill, normal heart sounds, regular rate and rhythmRespiratory: normal breath sounds, no distressAbdomen: normal bowel sounds, soft, no masses, suprapubic tendernessGenitourinary: no bladder distensionExtremities: capillary refill normal, non-tender, pulses equal, no swellingMusculoskeletal: no CVA tenderness, no midline vertebral tend, no paraspinal tendernessNeuro/LAND SURVEYING MANAGER: alert, normal speech per age, oriented normal per agePsychiatry: normal affect, no hallucinations ResultsFindings/data:Laboratory Tests: 11/15 11/15 1244 0310 Hematology WBC (6.6 - 12.1 K/mm3) 11.8 RBC (3.45 - 5.01 M/mm3) 4.20 Hgb (12.0 - 16.0 g/dL) 11.8 L Hct (36 - 45 %) 35.4 L MCV (84.1 - 94.8 fL) 84 L MCH (26 - 32 pg) 28.1 MCHC (32 - 35 gm/dL) 33.3 RDW (12.4 - 16.5 %) 11.8 L Plt Count (135 - 380 K/mm3) 341 MPV (9.1 - 12.7 fl) 9.4 Neut % (Auto) (56.5 - 79.4 %) 63.1 Lymph % (Auto) (14.3 - 34.3 %) 25.7 Carson % (Auto) (5.1 - 10.4 %) 8.9 Eos % (Auto) (0.1 - 3.0 %) 1.0 Baso % (Auto) (0.1 - 1.0 %) 0.5 Neut # (Auto) (K/mm3) 7.5 Lymph # (Auto) (K/mm3) 3.0 Carson # (Auto) (K/mm3) 1.1 Eos # (Auto) (K/mm3) 0.12 Baso # (Auto) (K/mm3) 0.1 Serology Treponema pallidum Ab (NONREACTIVE) NONREACTIVE Hep Bs Antigen (NONREACTIVE) NONREACTIVE Urines Urine Color (YELLOW) YELLOW Urine Appearance (CLEAR) CLEAR Urine pH (5 - 9) 6.0 Ur Specific Paulding (1.001 - 1.035) 1.009 Urine Protein (NEG) NEGATIVE Urine Glucose (UA) (NEG) NEGATIVE Urine Ketones (NEG) NEGATIVE Urine Blood (NEG) NEG Urine Nitrite (NEG) NEG Urine Bilirubin (NEG) NEGATIVE Urine Urobilinogen (NEG mg/dL) 4.0 H Ur Leukocyte Esterase (NEG) 2+ H Urine RBC (NONE SEEN #/hpf) 0-2 Urine WBC (NONE SEEN #/hpf) 21-30 H Ur Epithelial Cells (RARE - FEW #/HPF) FEW Urine Bacteria (RARE - FEW /HPF) RARE Urine Mucus (NONE SEEN) RARE Diagnosis, Assessment PlanFree text A P:19 y/o F w/no significant pmhx found to be 6 weeks by ultrasound herefor n/v and leukocytosis. Per outside ED records urine shows 10-20 WBC remainingUA is not noted, however likely has UTI and most probable cause of leukocytosis. PLAN* Resp- KING * CV- HDS* Fen/gi-diet- regular, phenergan prn, IV fluids D5 1/2NS 20meq @100 mls/hr, wasconcerns for appendicitis MRI here ruled it out. * ID- ancef 1 gm for UTI* - OB consulted input appreciated. 6 week dated by US inconsistent LMP. GC, HIV, Hep B, and RPR ordered, wet prep sent for evaluation will follow up results. New UA and culture obtained will follow up results* heme-WBC on repeat lab is normal. GC, Hep B, treponema negative, hep C pending * Social- Grandmother/guardian at bedside, both were unaware of beforeadmission* dispo- pending resolution of n/v, and social work evaluation. Orders: Procedure Date/time Status OBSTETRIC PROFILE 11/15 1119 Active Consultants: obstetricsPlan discussed with: grandparent, patient, nurse at 1402 RPT #:[id number] OF REPORT PRProgress Nmyn6748-78-05C06:26:00F.[id number] able for patient aymtGCGPYBVOSMYKUQ6503-61-74Y60:02:27 [facility] 2019-11-16 11:26:00 [id number] tIrJ3o5SrXw9ef0h3gHp+ySk/YjJ6 lOzHs4aMktcd491E09634xTF1aAtNforxf0170-69-53A84:2 6:00 [facility] ([facility])Pediatric Progress NoteREPORT#:[id number] REPORT STATUS: SignedDATE:11/16/19 TIME: 112 PATIENT: RAAD BERKOWITZ UNIT #: [id number]#: [id number] [address] AGE: 19 SEX: F ATTEND: Alo Gonsalez [facility] AUTHOR: Yue Ahmadi MD R1 * ALL edits or amendments must be made on the electronic/computer document * Yue Ahmadi 11/16/19 1126:SubjectiveChief complaint:abdominal pain n/vComments:No acute events overnight. Patient reports still having abdominal pain and occasional nausea Review of SystemsConstitutional:Reports: decreased appetite. Denies: chills, decreased activity, fever. Skin:Denies: itching, rash, swelling. Respiratory:Denies: cough, productive cough (sputum), SOB. GI:Reports: abdominal pain. Denies: constipation, diarrhea, nausea, vomiting. Neuro:Denies: headache. Other system:Gu- reports white vaginal discharge, no smell, cramping and suprapubic pain denies- bleeding Objective GeneralVS/I O:Vital Signs: Date Time Temp Pulse Resp B/P B/P Pulse O2 O2 Flow FiO2 Mean Ox Delivery Rate 11/15 0418 98.0 71 18 83/52 62 99 Room air 11/15 0000 96.4 86 20 120/69 86 100 Room air 11/14 1930 97.6 75 19 111/72 85 100 Room air 24 hour I O ending at 0700: 11/15 0700 11/14 1900 Intake Total 514.11 Output Total Balance 514.11 Intake, IV 514.11 Patient 154 lb Weight Weight Bed scale Measurement Method PEWS Score(Data from Nursing Documentation ) Behavior: 0 Cardiovascular: 0 Respiratory: 0 Receiving Q15 minute nebulizers: 0 Persistent vomiting following surgery: 0 Total PEWS score: 0 Patient Weight Weight (lb): 154Weight (oz): 5.18Weight (kg): 70.000 Medications:Active Meds + DC'd Last 24 HrsCefazolin Sodium 1 GM Q6H IV (UNV) Sterile Water 10 MLNitrofurantoin Macrocrystals 100 MG Q12H PO (CANr) Promethazine HCl 12.5 MG Q6H PRN PRN IV Sodium Chloride 50 MLLidocaine/Prilocaine 1 APPLIC ONCE PRN TOPICAL (CKD) Potassium Chloride/Dextrose/Sod Cl 1,000 ML ASDIR IV (CKD) Nutrition assessment:The data set between the solid lines has been imported from the dietitian's assessment. Any exceptions have been noted under Provider comments. BMI Calculated: 33.4 Nutrition related diagnosis: Nutrition diagnosis details: Nutrition problem: Nutrition etiology: Nutrition signs and symptoms: Nutrition prescription: Dietitian name: Assessment completed: Provider comments on imported dietitian assessment: Physical ExamGeneral: appropriate, no apparent distress, no irritability, oriented, well appearingHead/eyes: atraumatic, EOMI, normocephalicENT: mucous memb pink moist, normal pharynxCardiovascular: pulses equal bilaterally, normal capillary refill, normal heart sounds, regular rate and rhythmRespiratory: normal breath sounds, no distressAbdomen: normal bowel sounds, soft, no masses, suprapubic tendernessGenitourinary: no bladder distensionExtremities: capillary refill normal, non-tender, pulses equal, no swellingMusculoskeletal: no CVA tenderness, no midline vertebral tend, no paraspinal tendernessNeuro/LAND SURVEYING MANAGER: alert, normal speech per age, oriented normal per agePsychiatry: normal affect, no hallucinations ResultsFindings/data:Laboratory Tests: 11/15 11/15 1244 0310 Hematology WBC (6.6 - 12.1 K/mm3) 11.8 RBC (3.45 - 5.01 M/mm3) 4.20 Hgb (12.0 - 16.0 g/dL) 11.8 L Hct (36 - 45 %) 35.4 L MCV (84.1 - 94.8 fL) 84 L MCH (26 - 32 pg) 28.1 MCHC (32 - 35 gm/dL) 33.3 RDW (12.4 - 16.5 %) 11.8 L Plt Count (135 - 380 K/mm3) 341 MPV (9.1 - 12.7 fl) 9.4 Neut % (Auto) (56.5 - 79.4 %) 63.1 Lymph % (Auto) (14.3 - 34.3 %) 25.7 Carson % (Auto) (5.1 - 10.4 %) 8.9 Eos % (Auto) (0.1 - 3.0 %) 1.0 Baso % (Auto) (0.1 - 1.0 %) 0.5 Neut # (Auto) (K/mm3) 7.5 Lymph # (Auto) (K/mm3) 3.0 Carson # (Auto) (K/mm3) 1.1 Eos # (Auto) (K/mm3) 0.12 Baso # (Auto) (K/mm3) 0.1 Serology Treponema pallidum Ab (NONREACTIVE) NONREACTIVE Hep Bs Antigen (NONREACTIVE) NONREACTIVE Urines Urine Color (YELLOW) YELLOW Urine Appearance (CLEAR) CLEAR Urine pH (5 - 9) 6.0 Ur Specific Paulding (1.001 - 1.035) 1.009 Urine Protein (NEG) NEGATIVE Urine Glucose (UA) (NEG) NEGATIVE Urine Ketones (NEG) NEGATIVE Urine Blood (NEG) NEG Urine Nitrite (NEG) NEG Urine Bilirubin (NEG) NEGATIVE Urine Urobilinogen (NEG mg/dL) 4.0 H Ur Leukocyte Esterase (NEG) 2+ H Urine RBC (NONE SEEN #/hpf) 0-2 Urine WBC (NONE SEEN #/hpf) 21-30 H Ur Epithelial Cells (RARE - FEW #/HPF) FEW Urine Bacteria (RARE - FEW /HPF) RARE Urine Mucus (NONE SEEN) RARE Diagnosis, Assessment PlanFree text A P:19 y/o F w/no significant pmhx found to be 6 weeks by ultrasound herefor n/v and leukocytosis. Per outside ED records urine shows 10-20 WBC remainingUA is not noted, however likely has UTI and most probable cause of leukocytosis. PLAN* Resp- KING * CV- HDS* Fen/gi-diet- regular, phenergan prn, IV fluids D5 1/2NS 20meq @100 mls/hr, wasconcerns for appendicitis MRI here ruled it out. * ID- ancef 1 gm for UTI* - OB consulted input appreciated. 6 week dated by US inconsistent LMP. GC, HIV, Hep B, and RPR ordered, wet prep sent for evaluation will follow up results. New UA and culture obtained will follow up results* heme-WBC on repeat lab is normal. GC, Hep B, treponema negative, hep C pending * Social- Grandmother/guardian at bedside, both were unaware of beforeadmission* dispo- pending resolution of n/v, and social work evaluation. Orders: Procedure Date/time Status OBSTETRIC PROFILE 11/15 1119 Active Consultants: obstetricsPlan discussed with: grandparent, patient, nurse Claritza Johnson 11/16/19 1602:Diagnosis, Assessment PlanProblem List/A P: 1. Urinary tract infection 2. 3. Abdominal pain 4. Ketonuria Attestations Physician AttestationAgree w/findings plan:Agree with the findings and plan as documented by Yue Ahmadi MD-R1. 19yo F transferred for evaluation for appendicitis in light of early . Pt states she has been nauseous with vomiting for the last few weeks and she statesshe had taken 4 tests that were all positive but did not tell her grandmother (guardian) because she was scared. Yesterday, her grandmother received a text from her mother stating the pt was possibly miscarrying. She tried giving the pt Zofran, which did not help, so she was taken to an OSH ED for evaluation. Per ED records, US estimated 5-6 weeks gestation. On arrival, the pt had an MRI of the abdomen that ruled out appendicitis. Since admission, nausea and vomiting have resolved. Brief physical exam: wnl Plan: [employer]ER HELPER service consulted and the pt was counselled on . Initial OB panel and wet prep obtained.-UA was repeated suggestive of UTI and pt to be discharged with Macrobid x 5 days, Diclegis for nausea/vomiting, and vitamins.-Social work consulted-I personally counselled the pt and grandmother regarding , UTI treatment, need for mirror silverer follow up, need for strict social distancing (including the upcoming school year- the pt can attend high school remotely), increased fluid intake, alcohol/drug/vaping cessation (pt denied any use), and encouraged the pt to repair her relationship with her grandmother who will help her throughout the . at 1402 at 1616 RPT #:[id number] OF REPORT PRProgress Itfg6847-26-62D13:26:00F.[id number] able for patient dlknEOTUWUCADLIIOI7723-91-38G96:16:23 [facility] 2019-11-15 23:27:00 [id number] lkcesoLhRW+uHbVP6XybkWtrvyq5X t5i81dQfBHFh9nLgGDyaqjMYgHqRZKh7vO0916-15-90F45:2 7:00 [facility] ([facility])History Physical - PedsREPORT#:[id number] REPORT STATUS: SignedDATE:11/15/19 TIME: 2326 PATIENT: RAAD BERKOWITZ UNIT #: [id number]#: [id number] ROOM/BED: [facility]-ADOB: [birth year] AGE: 19 SEX: F ATTEND: Alo Gonsalez AUTHOR: Alo Gonsalez MD * ALL edits or amendments must be made on the electronic/computer document * History of Present IllnessChief complaint:abd pain n/vHPI:19yo female who is 6 to 9 wks was taken to the ED with N/V and abd pain. she has not tolerated anything PO x 24 hrs. See at [facility] where they were unable to evaluate for appendicitis after having 99.9 degree temp and luekocytosis on her CBC. She was transferred for evaluation of appendicitis. PMHx consists of ADHD but has not been off meds for a whileNKDANo past surgeriesNo sick contacts. History Past HistoryAllergies:Coded Allergies:No Known Allergies (11/15/19) Review of SystemsConstitutional:Reports: decreased appetite, generalized weakness. Denies: chills, crying more / fussy, decreased activity, fever. Skin:Denies: itching, rash. Allergy/Immun:Denies: anaphylaxis, rhinorrhea. Eyes:Denies: discharge, eye pain, redness. ENT:Denies: ear drainage, nasal congestion, sore throat, throat swelling, tongue pain, tongue swelling, toothache. Respiratory:Denies: pain with breathing, problem with breathing, productive cough (sputum), SOB, wheezing. Cardiovascular:Denies: congenital heart defect, cyanosis. GI:Reports: abdominal pain, nausea, vomiting. Denies: bloody/tarry stool, diarrhea. :Denies: abnormal vaginal bleeding, decreased urination, dysuria, pelvic pain, previous pregnancies. Musculoskeletal:Denies: extremity pain, extremity swelling, joint pain, joint swelling. Heme:Denies: adenopathy, bleeding, bruising, petechiae. Neuro:Denies: change in LOC, seizure. Physical ExamVS/I OLast Documented: Result Date Time Pulse Ox 100 06/28 1930 B/P 111/72 11/14 1929 B/P Mean 85 11/14 1929 O2 Delivery Room air 11/14 1929 Temp 36.4 11/14 1929 Pulse 75 11/14 1929 Resp 19 11/14 1929 Patient Weight Weight (lb): 154Weight (oz): 5.18Weight (kg): 70.000 General: appropriate, no apparent distress, no irritability, no lethargy, well appearing, oriented, ill appearing/not toxicHead/Eyes: EOMI, PERRLAENT: abnormal mucous membranes (slightly dry)Neck: full range of motion, no lymphadenopathy, no masses or swelling, supple/nomeningismusCardiovascular: pulses equal bilaterally, normal capillary refill, normal heart sounds, regular rate and rhythmRespiratory: no distress, normal breath soundsAbdomen: soft, no distention, no guarding, atraumatic Abdomen quadrants:LLQ normal bowel sounds, LUQ normal bowel sounds, RLQ normal bowel sounds, RLQ rebound, RLQ tenderness (epigastric discomfort as well), RUQ normal bowel sounds, RUQ rebound, RUQ tenderness (epigastric discomfort as well)Extremities: normal inspection, capillary refill normal, full range of motion, motor intact distally, neurovascular intact, non-tender, normal gait, normal tone, pulses equalMusculoskeletal: normal inspection, full range of motionNeuro/LAND SURVEYING MANAGER: alert, no motor deficits, no sensory deficits, normal cerebellar, normal gait per age, normal speech per age, oriented normal per ageSkin: dry, warm ResultsResults: labs reviewed, vital signs stable, current med profile rev'd Diagnosis, Assessment PlanProblem List/A P: 1. Nausea vomiting 2. Leukocytosis (leucocytosis) 3. Abdominal pain Free Text A P:19yo 6wk female with c/o abd pain, N/V with 99.9temp in ED in stable condition. MRI done r/o Appy - negative Leukocytosis of WBC 18 - will check GC/ chlamydia as they didnt check in ED, UA was clear exept for some WBCs and epith. Left shick with no exposure or c/o URIsymptoms. No ABx at this time as I done know what I am treating. OB consult in am - trans vaginal UA done in ED + for 7mmm subchorionic bleed Allow PO, phenergan PRN, IVf overnight to hydraterecheck am CBC Plan discussed with: grandparent, patient at 2344 RPT #:[id number] OF REPORT HPHistory and physical [id number] AVAvailable for patient [id number] HCAWH
[2023-07-07 21:02] LABS: Absolute Lymphocytes (CBC) 4.8 K/uL (0.7-4.9); Hematocrit 43.1 % (36.0-45.0); Lymphocytes % 27.2 % (15.3-44.8); MCV 82.4 fL (80-100); MPV 6.7 fL (7.6-11.3); Platelets 424 thou/uL (152-406); RBC Red Blood Cell Count 5.23 M/uL (3.86-4.86)
[2023-07-07 21:20] LABS: ALT/SGPT 18 U/L (13-56); Alkaline Phosphatase 75 U/L (45-117); BUN Blood Urea Nitrogen 16 mg/dL (7-18); Bicarbonate 26 mEq/L (21-32); Bilirubin Total 0.5 mg/dL (0.2-1.0); Glomerular Filtration Rate 108 ml/min (=/>90); Glucose Level 91 mg/dL (74-106); Lipase 29 U/L (13-75); Potassium 3.5 mEq/L (3.5-5.1); Protein, Total 7.5 g/dL (6.4-8.2); Sodium Level 137 mEq/L (136-145)
[2023-07-07 21:21] LABS: AST/SGOT < 4 U/L (15-37)
--- NOTE | 2023-07-07 21:36 | EDPHYS ---
Physician Documentation [facility] Name: Edson Juarez Age: 22 yrs Sex: Female : 2000 Arrival Date: 07/07/2023 Time: 20:20 Bed 5 Private MD: ED Physician Benito Jacome HPI: 07/07 20:25 This 22 yrs old Female presents to ER via Unassigned with complaints of sp4 Constipation, Abdominal Pain. 21:38 Minus 22-year-old female presents with complaint of 6 days of constipation, feeling sp4 unwell lower abdominal pain associated with nausea vomiting. Patient took Zofran prior to arrival. Patient also took some laxative prior to arrival. Patient complains of moderate lower abdominal pain equally distributed right and left lower quadrants. Pain is constant. Historical: - Allergies: 20:44 No Known Allergies; tl4 - Home Meds: 20:44 None [Active]; tl4 - PMHx: 20:44 None; tl4 - PSHx: 20:44 wisdom tooth extraction; tl4 - Immunization history:: Adult Immunizations unknown. - Social history:: Smoking status: Reported history of juuling and/or vaping. - Family history:: not pertinent. ROS: 21:38 Constitutional: Negative for fever, chills, and weight loss, positive lower abdominal sp4 pain, positive vomiting positive constipation. Cardiovascular: Negative for chest pain, palpitations, and edema, 21:38 All other systems are negative, Exam: 21:38 Constitutional: This is a well developed, well nourished patient who is awake, alert, sp4 moderate distress secondary to pain crying on exam.. Head/Face: Normocephalic, atraumatic. Eyes: Pupils equal round and reactive to light, extra-ocular motions intact. Lids and lashes normal. Conjunctiva and sclera are not injected. Cornea within normal limits. Periorbital areas with no swelling, redness, or edema. ENT: Nares patent. No nasal discharge, no septal abnormalities noted. Tympanic membranes are normal and external auditory canals are clear. Oropharynx with no redness, swelling, or masses, exudates, or evidence of obstruction, uvula midline. Mucous membranes moist. Neck: Trachea midline, no thyromegaly or masses palpated, and no cervical lymphadenopathy. Supple, full range of motion without nuchal rigidity, or vertebral point tenderness. Chest/axilla: Normal chest wall appearance and motion. Nontender with no deformity. No lesions are appreciated. Cardiovascular: Regular rate and rhythm with a normal S1 and S2. No gallops, murmurs, or rubs. Normal PMI, no JVD. No pulse deficits. Respiratory: Lungs have equal breath sounds bilaterally, clear to auscultation and percussion. No rales, rhonchi or wheezes noted. No increased work of breathing, no retractions or nasal flaring. Abdomen/GI: Soft, with normal bowel sounds. No distension or tympany. Positive lower abdominal tenderness. Positive lower abdominal cramps. Negative peritoneal signs or rebound Back: No spinal tenderness. No costovertebral tenderness. Skin: Warm, dry with normal turgor. Normal color with no rashes, no lesions, and no evidence of cellulitis. MS/ Extremity: Pulses equal, no cyanosis. Neurovascular intact. Full, normal range of motion. Neuro: Awake and alert, GCS 15, oriented to person, place, time, and situation. Cranial nerves II-XII grossly intact. Motor strength 5/5 in all extremities. Sensory grossly intact. Psych: Awake, alert, with orientation to person, place and time. Behavior, mood, and affect are within normal limits Vital Signs: 20:41 BP 151 / 91; Pulse 93; Resp 20; Temp 97.1(TE); Pulse Ox 100% on R/A; Weight 71.67 kg; tl4 Height 4 ft. 10 in. ; Pain 8/10; 21:20 BP 118 / 79; Pulse 57; Resp 17 S; Pulse Ox 98% on R/A; jw7 21:58 BP 100 / 70; Pulse 56; Resp 16 S; Pulse Ox 99% on R/A; jw7 20:41 Body Mass Index 33.02 (71.67 kg, 147.32 cm) tl4 20:41 Pain Scale: Adult tl4 MDM: 20:26 Patient medically screened. sp4 21:38 Differential Diagnosis altered mental status, sepsis, flu, Positive for lower abdominal sp4 pain. Data reviewed: vital signs, nurses notes, old medical records, lab test result(s). Consideration of Admission/Observation Escalation of care including admission/observation considered. ED course: Patient went to the bathroom and had large caliber bowel movement and felt 100% improved. Patient reports her pain is gone and she would like to refuse CAT scan. Patient was informed that her white count is elevated above 17,000 and that CAT scan would be advisable at this time. Patient states that her pain is gone and she would like to decline CAT scan. Although in case pain returns or gets worse she will report back to the emergency room for CT abdomen pelvis. Patient is stable for discharge home with an informed discharge. . 07/07 20:25 Order name: CBC with Diff; Complete Time: 21:32 sp4 07/07 20:25 Order name: CMP; Complete Time: 21:32 sp4 07/07 20:25 Order name: Lipase; Complete Time: 21:32 sp4 07/07 20:50 Order name: CRP sp4 07/07 20:25 Order name: IV Saline Lock; Complete Time: 20:59 sp4 07/07 20:25 Order name: Labs collected and sent; Complete Time: 20:59 sp4 Administered Medications: 21:34 Drug: NS 0.9% IV 1000 ml IV at 1 bolus Per protocol; 1000 mL bolus Route: IV; Rate: 1 jw7 bolus; Site: left antecubital; 22:03 Follow up: Response: No adverse reaction; IV Status: Completed infusion; IV Intake: jw7 1000ml 21:34 Drug: morphine IVP or IV 4 mg IVP once over 4 mins Route: IVP; Infused Over: 4 mins; jw7 Site: left antecubital; 22:03 Follow up: Response: No adverse reaction; Marked relief of symptoms jw7 21:34 Drug: Ketorolac IVP 30 mg IVP once Route: IVP; Site: left antecubital; jw7 22:03 Follow up: Response: No adverse reaction; Marked relief of symptoms jw7 21:34 Drug: metoCLOPramide IVP 10 mg IVP once; over 1 to 2 minutes Route: IVP; Site: left jw7 antecubital; 22:03 Follow up: Response: No adverse reaction; Marked relief of symptoms jw7 21:34 Drug: diphenhydrAMINE IVP 12.5 mg IVP once Route: IVP; Site: left antecubital; jw7 22:02 Follow up: Response: No adverse reaction jw7 Disposition Summary: 07/07/23 21:36 Discharge Ordered Notes: Location: Home sp4 Problem: new sp4 Symptoms: have improved sp4 Condition: Stable sp4 Diagnosis - Lower abdominal pain, unspecified sp4 - Constipation, unspecified sp4 Followup: sp4 - With: Private Physician - When: 7 - 10 days - Reason: Recheck today's complaints Discharge Instructions: - Discharge Summary Sheet sp4 - Abdominal Pain, Adult, [id number] sp4 Forms: - Patient Portal Instructions sp4 Signatures: Dispatcher [employer] Olinda Miller, RN RN jw7 Benito Jacome MD MD sp4 Ryan Froman RN RN tl4
--- NOTE | 2023-07-07 21:36 | ER ---
Nurse's Notes [facility] Name: Edson Juarez Age: 22 yrs Sex: Female : 2000 Arrival Date: 07/07/2023 Time: 20:20 Bed 5 Private MD: Diagnosis: Lower abdominal pain, unspecified;Constipation, unspecified Presentation: 07/07 20:41 Chief complaint: Patient states: Pt c/o not having a bowel movement x 6 days since tl4 starting hydrocodone for wisdom tooth extraction. Pt states today she developed lower abdominal cramping, nausea, and vomiting. No relief with zofran and OTC laxatives. Coronavirus screen: At this time, the client does not indicate any symptoms associated with coronavirus-19. Ebola Screen: No symptoms or risks identified at this time. Initial Sepsis Screen: Does the patient meet any 2 criteria? No. Patient's initial sepsis screen is negative. Does the patient have a suspected source of infection? No. Patient's initial sepsis screen is negative. Risk Assessment: Do you want to hurt yourself or someone else? Patient reports no desire to harm self or others. Onset of symptoms was July 07, 2023. 20:41 Method Of Arrival: Wheelchair tl4 20:41 Acuity: JOSE F 3 tl4 Triage Assessment: 20:44 General: Appears distressed, uncomfortable, Behavior is cooperative, appropriate for tl4 age. Pain: Complains of pain in abdomen. EENT: No deficits noted. No signs and/or symptoms were reported regarding the EENT system. Neuro: No deficits noted. Cardiovascular: No deficits noted. Respiratory: No deficits noted. GI: Reports lower abdominal pain, constipation, cramping, nausea, vomiting. : No deficits noted. No signs and/or symptoms were reported regarding the genitourinary system. Derm: No deficits noted. No signs and/or symptoms reported regarding the dermatologic system. Historical: - Allergies: 20:44 No Known Allergies; tl4 - Home Meds: 20:44 None [Active]; tl4 - PMHx: 20:44 None; tl4 - PSHx: 20:44 wisdom tooth extraction; tl4 - Immunization history:: Adult Immunizations unknown. - Social history:: Smoking status: Reported history of juuling and/or vaping. - Family history:: not pertinent. Screenin:45 [facility] ED Fall Risk Assessment (Adult) History of falling in the last 3 months, jw7 including since admission No falls in past 3 months (0 pts) Score/Fall Risk Level 0 - 2 = Low Risk Oriented to surroundings, Maintained a safe environment, Educated pt \\T\\ family on fall prevention, incl call for assistance when getting out of bed. Abuse screen: Denies threats or abuse. Denies injuries from another. Nutritional screening: No deficits noted. Tuberculosis screening: No symptoms or risk factors identified. Assessment: 20:45 General: See Triage Assessment. jw7 21:20 General: Pt refused CT Scan, stating "I'm starting to feel much better now", Provider jw7 notified. . 21:25 General: Provider at bedside. jw7 21:57 Reassessment: Patient appears in no apparent distress at this time. Patient and/or jw7 family updated on plan of care and expected duration. Pain level reassessed. Patient is alert, oriented x 3, equal unlabored respirations, skin warm/dry/pink. Patient states feeling better. Patient states symptoms have improved. Vital Signs: 20:41 BP 151 / 91; Pulse 93; Resp 20; Temp 97.1(TE); Pulse Ox 100% on R/A; Weight 71.67 kg; tl4 Height 4 ft. 10 in. ; Pain 8/10; 21:20 BP 118 / 79; Pulse 57; Resp 17 S; Pulse Ox 98% on R/A; jw7 21:58 BP 100 / 70; Pulse 56; Resp 16 S; Pulse Ox 99% on R/A; jw7 20:41 Body Mass Index 33.02 (71.67 kg, 147.32 cm) tl4 20:41 Pain Scale: Adult tl4 ED Course: 20:21 Patient arrived in ED. jj6 20:25 Bneito Jacome MD is Attending Physician. sp4 20:44 Triage completed. tl4 20:45 Arm band placed on Patient placed in an exam room, on a stretcher. tl4 20:45 Patient has correct armband on for positive identification. Placed in gown. Bed in low jw7 position. Call light in reach. 20:55 Inserted saline lock: 22 gauge in left antecubital area, using aseptic technique. Blood nj1 collected. 21:59 Provided Education on: discharge instructions. jw7 21:59 No provider procedures requiring assistance completed. IV discontinued, intact, jw7 bleeding controlled, No redness/swelling at site. Pressure dressing applied. Administered Medications: 21:34 Drug: NS 0.9% IV 1000 ml IV at 1 bolus Per protocol; 1000 mL bolus Route: IV; Rate: 1 jw7 bolus; Site: left antecubital; 22:03 Follow up: Response: No adverse reaction; IV Status: Completed infusion; IV Intake: jw7 1000ml 21:34 Drug: morphine IVP or IV 4 mg IVP once over 4 mins Route: IVP; Infused Over: 4 mins; jw7 Site: left antecubital; 22:03 Follow up: Response: No adverse reaction; Marked relief of symptoms jw7 21:34 Drug: Ketorolac IVP 30 mg IVP once Route: IVP; Site: left antecubital; jw7 22:03 Follow up: Response: No adverse reaction; Marked relief of symptoms jw7 21:34 Drug: metoCLOPramide IVP 10 mg IVP once; over 1 to 2 minutes Route: IVP; Site: left jw7 antecubital; 22:03 Follow up: Response: No adverse reaction; Marked relief of symptoms jw7 21:34 Drug: diphenhydrAMINE IVP 12.5 mg IVP once Route: IVP; Site: left antecubital; jw7 22:02 Follow up: Response: No adverse reaction jw7 Medication: 22:00 VIS not applicable for this client. jw7 Intake: 22:03 IV: 1000ml; Total: 1000ml. jw7 Outcome: 21:36 Discharge ordered by . sp4 21:59 Discharged to home ambulatory, jw7 21:59 Condition: stable 21:59 Discharge instructions given to patient, Instructed on discharge instructions, follow up and referral plans. Demonstrated understanding of instructions, follow-up care, 22:04 Patient left the ED. jw7 Signatures: Anne-Marie Romeroj6 Olinda Perez RN RN jw7 Benito Jacome MD MD sp4 Theresa Cristina RN RN nj1 Ryan Forman RN RN tl4 Corrections: (The following items were deleted from the chart) 22:04 21:20 General: Pt refused CT Scan, Provider notified. . jw7 jw7
[2023-07-07 22:28] VITALS: BP 100/70; TEMP 97.1; O2SAT 99
== END ==
LOC: ER 20:20
DX: K59.00 Constipation, unspecified (principal)
CPT/HCPCS: 85025; 36415; 83690; 80053; 86140; 96375; 96374; 99284; J2765; J1200; J7030

== ENCOUNTER 2024-05-27 19:07 | Emergency (ER) | payer OTHER ==
--- OUTSIDE RECORDS SUMMARY | 2024-05-27 19:11 | XMS REPORT | Continuity of Care Document ---
Author Name Unknown Address [address] [facility] [address] [place] [id number] [facility] Address [address] [facility] [address] [place] [address] Care Team Providers Care Produce Buyer Name Role Phone JANIS BELTRE Primary Care Physician Marianna Alo Sewell Attending Clinician UnavailCARLOS Valentino Attending Clinician Unavailable Carlos Elizalde MD Attending Clinician [phone] Brenda Martínez RN Attending Clinician Unavaila MILAGRO Araiza Attending Clinician UnavailMilagro Malave Attending Clinician [phone] Doctor Unassigned, [place] Attending Clinician U navailGABBY Dietz Attending Clinician Unavailable Gabby Ward Attending Clinician [phone] EbraArti Gordon Attending Clinician [phone] ADRIANE ENGLAND Attending Clinician Unavailable Jasmin Pyle RN Attending Clinician Unavailable Only, Ang Db Test Attending Clinician Unavailsusy Sheikh MD, Stephen Attending Clinician [phone] STEPHEN SHEIKH Attending Clinician Unavailable Adriane England MD Attending Clinician [phone] Unknown, Attending Attending Clinician UnavailLEROY Dunn Attending Clinician Unavailable Nurse, [facility] Attending Clinician Un available Neville HARRIS, Monica Nieves Attending Clinician [phone] RADU KERN Attending Clinician Unavailable AUGUSTUS ETIENNE Attending Clinician Unavailsusy e LV MAST Attending Clinician UnavailADRIANE Ray Admitting Clinician Unavailable Alo Gonsalez Admitting Clinician UnavailMonica Leroy MD Admitting Clinician [phone] PANCMELI, [place] Admitting Clinician Unavailsusy e Payers Payer Name Policy Type Policy Number Effective Date Expirati on Date Source AET[employer] CHOICE POS II [id number] 2020 00:00:00 FORMERLY [facility] [id number] 2020 00:00[facility]00 [facility] [id number] 2018 00:00:00 Problems Condition Name Condition Details Condition Category Status Onset Date Resolution Date Last Treatment Date Treating Clinician Comments Source Genital herpes simplex Genital Herpes Simplex Problem Active - 00:00: 00 [facility] Hyperlipid emia Hyperlipid emia Problem Active -13 00:00: 00 [facility] Anxiety Anxiety Problem Active -13 00:00: 00 [facility] Depressive disorder Depressive Disorder Problem Active - 00:00: 00 [facility] Heartburn Heartburn Problem Active - 00:00: 00 [facility] Other depression Other depression Disease Active 6-08 00:00: 00 [facility] Obesity (BMI 30-39.9) Obesity (BMI 30-39.9) Disease Active 4-06 00:00: 00 [facility] Allergies, Adverse Reactions, Alerts Allergy Name Allergy Type Status Severity Reaction(s) Onset Date Inactive Date Treating Clinician Comments Source No Known Allergie s DA Active U 11-14 00:00: 00 [facility] No Known Allergie s DA Active U 11-14 00:00: 00 [facility] NO KNOWN ALLERGIE S Drug Class Active [facility] Social History Social Habit Start Date Stop Date Quantity Comments Source History SDOH Alcohol Std Drinks [facility] History SDOH Alcohol Binge [facility] History SDOH Alcohol Comment [facility] History of tobacco use Occasional tobacco smoker [facility] Exposure to SARS-CoV-2 (event) 2022-06-06 00:00:00 2022-06-16 20:55:00 Not sure [facility] Alcohol intake 2021-11-14 00:00:00 2021-11-14 00:00:00 Lifetime non-drinker (finding) [facility] Tobacco use and exposure 2021-05-03 00:00:00 2021-05-03 00:00:00 Smokeless tobacco non-user [facility] Tobacco Comment 2021-05-03 00:00:00 2021-05-03 00:00:00 1 cig occasional [facility] History SDOH Alcohol Frequency 2019-12-08 00:00:00 2019-12-08 00:00:00 1 [facility] Sex Assigned At 2002 00:00:00 2000 00:00:00 [facility] Smoking Status Start Date Stop Date Source Light Tobacco Smoker [facility] Occasional tobacco smoker 2021-05-03 00:00:00 [facility] Medications Ordered Medication Name Filled Medication Name Start Date Stop Date Current Medication? Ordering Clinician Indication Dosage Frequency Signature (SIG) Comments Components Source proMETHazin e 12.5 mg tablet 11-14 00:00: 00 Yes [id number] 12.5mg Take 1 tablet by mouth every 6 (six) hours as needed for Nausea and Vomiting (N/V). [facility] azithromyci n 250 mg tablet 11-14 00:00: 00 11-20 04:59 :00 No [id number] Take 2 tablets by mouth daily for 1 day, THEN 1 tablet daily for 4 days. [facility] escitalopra m oxalate 10 mg tablet 10-25 00:00: 00 Yes [id number] 10mg Take 1 tablet by mouth daily. [facility] azithromyci n 250 mg tablet 10-20 00:00: 00 11-14 00:00 :00 No [facility] bromphenira mine-pseudo ephedrine-D M 2-30-10 mg/5 mL syrup - 00:00: 00 11-14 00:00 :00 No [facility] Nexplanon 68 mg subdermal implant Inject by subcutaneou s route. Nexplanon 68 mg subdermal implant Inject by subcutaneou s route. 1- 00:00: 00 No Nexplanon 68 mg subdermal implant Inject by subcutaneo us route. [facility] lidocaine 5 % topical ointment APPLY TO AFFECTED AREA(S) BY TOPICAL ROUTE 1-4 TIMES DAILY NEEDED lidocaine 5 % topical ointment APPLY TO AFFECTED AREA(S) BY TOPICAL ROUTE 1-4 TIMES DAILY NEEDED No lidocaine 5 % topical ointment APPLY TO AFFECTED AREA(S) BY TOPICAL ROUTE 1-4 TIMES DAILY NEEDED [facility] promethazin e 25 mg tablet TAKE ONE (1) TABLET(S) BY MOUTH EVERY FOUR TO SIX HOURS FOR VOMITING. promethazin e 25 mg tablet TAKE ONE (1) TABLET(S) BY MOUTH EVERY FOUR TO SIX HOURS FOR VOMITING. No promethazi ne 25 mg tablet TAKE ONE (1) TABLET(S) BY MOUTH EVERY FOUR TO SIX HOURS FOR VOMITING. [facility] metronidazo le 500 mg tablet TAKE ONE (1) TABLET(S) BY MOUTH EVERY TWELVE HOURS FOR SEVEN DAYS. metronidazo le 500 mg tablet TAKE ONE (1) TABLET(S) BY MOUTH EVERY TWELVE HOURS FOR SEVEN DAYS. No metronidaz ole 500 mg tablet TAKE ONE (1) TABLET(S) BY MOUTH EVERY TWELVE HOURS FOR SEVEN DAYS. [facility] valacyclovi r 500 mg tablet TAKE ONE (1) TABLET(S) BY MOUTH TWICE A DAY FOR 5 DAYS. valacyclovi r 500 mg tablet TAKE ONE (1) TABLET(S) BY MOUTH TWICE A DAY FOR 5 DAYS. No valacyclov ir 500 mg tablet TAKE ONE (1) TABLET(S) BY MOUTH TWICE A DAY FOR 5 DAYS. [facility] ParaGard T 380A 380 square mm intrauterin e device ParaGard T 380A 380 square mm intrauterin e device No ParaGard T 380A 380 square mm intrauteri ne device [facility] Vital Signs Vital Name Observation Time Observation Value Comments S ource BMI (Body Mass Index) 2023-10-29 00:00:00 33.6 kg/m2 [facility] BP Systolic 2023-10-29 00:00:00 109 mm[Hg] [facility] Body Weight 2023-10-29 00:00:00 161 [lb_av] [facility] BP Diastolic 2023-10-29 00:00:00 71 mm[Hg] [facility] Height 2023-10-29 00:00:00 58 [in_i] [facility] BP Diastolic 2023-10-28 00:00:00 78 mm[Hg] [facility] BP Systolic 2023-10-28 00:00:00 114 mm[Hg] [facility] Body Weight 2023-10-28 00:00:00 161 [lb_av] [facility] BMI (Body Mass Index) 2023-10-28 00:00:00 33.6 kg/m2 [facility] Height 2023-10-28 00:00:00 58 [in_i] [facility] Body Weight 2023-10-07 00:00:00 151.8 [lb_av] [facility] BP Diastolic 2023-10-07 00:00:00 72 mm[Hg] [facility] BMI (Body Mass Index) 2023-10-07 00:00:00 31.7 kg/m2 [facility] BP Systolic 2023-10-07 00:00:00 117 mm[Hg] [facility] Height 2023-10-07 00:00:00 58 [in_i] [facility] BP Diastolic 2023-09-30 00:00:00 80 mm[Hg] [facility] BP Systolic 2023-09-30 00:00:00 120 mm[Hg] [facility] Height 2023-09-30 00:00:00 58 [in_i] [facility] Body Weight 2023-09-30 00:00:00 151.2 [lb_av] [facility] BMI (Body Mass Index) 2023-09-30 00:00:00 31.6 kg/m2 [facility] Systolic blood pressure 2022-06-17 05:56:00 138 mm[Hg] [facility] Diastolic blood pressure 2022-06-17 05:56:00 102 mm[Hg] [facility] Heart rate 2022-06-17 05:56:00 104 /[facility] Respiratory rate 2022-06-17 05:56:00 18 /min [facility] Oxygen saturation in Arterial blood by Pulse oximetry 2022-06-17 05:56:00 99 /min [facility] Body temperature 2022-06-17 02:53:00 37.22 Marta [facility] Body height 2022-06-17 02:53:00 157.5 cm [facility] Body weight 2022-06-17 02:53:00 72.576 kg [facility] BMI 2022-06-17 02:53:00 29.26 kg/m2 [facility] Systolic blood pressure 2021-11-14 19:02:00 128 mm[Hg] [facility] Diastolic blood pressure 2021-11-14 19:02:00 85 mm[Hg] [facility] Heart rate 2021-11-14 19:02:00 84 /min [facility] Body temperature 2021-11-14 19:02:00 36.94 Marta [facility] Respiratory rate 2021-11-14 19:02:00 17 /min [facility] Body height 2021-11-14 19:02:00 144.8 cm [facility] Body weight 2021-11-14 19:02:00 79.039 kg [facility] BMI 2021-11-14 19:02:00 37.71 kg/m2 [facility] Body mass index (BMI) [Percentile] Per age and sex 2021-11-14 19:02:00 98.10 % [facility] Oxygen saturation in Arterial blood by Pulse oximetry 2021-11-14 19:02:00 99 /min [facility] Systolic blood pressure 2021-10-11 19:21:00 126 mm[Hg] [facility] Diastolic blood pressure 2021-10-11 19:21:00 89 mm[Hg] [facility] Heart rate 2021-10-11 19:21:00 98 /min [facility] Body temperature 2021-10-11 19:21:00 37.11 Marta [facility] Respiratory rate 2021-10-11 19:21:00 16 /min [facility] Body height 2021-10-11 19:21:00 144.8 cm [facility] Body weight 2021-10-11 19:21:00 79.89 kg [facility] BMI 2021-10-11 19:21:00 38.11 kg/m2 [facility] Body mass index (BMI) [Percentile] Per age and sex 2021-10-11 19:21:00 98.22 % [facility] Oxygen saturation in Arterial blood by Pulse oximetry 2021-10-11 19:21:00 97 /min [facility] Procedures Procedure Date / Time Performed Performing Clinicia n Source CONSENT/REFUSAL FOR DIAGNOSIS AND TREATMENT 2022-06-17 02:34:13 Doctor Unassigned, [place] [facility] ASSIGNMENT OF BENEFITS 2021-11-14 18:55:13 Docto r Unassigned, [place] [facility] Encounters Start Date/Time End Date/Time Encounter Type Admission Type Attending Clinicians Care Facility Care Department Encounter ID Source 2021-03-18 20:10:05 Outpatient P [facility] [id number] [facility] 2021-03-18 20:03:57 Outpatient P [facility] [id number] [facility] 2019-11-15 18:50:00 [id number] [facility] 2023-10-29 00:00:00 2023-10-29 00:00:00 Arielle Arambula MD: [address], [facility] [address], [place] [address] , Ph. [facility] - GC_GCBZW_Mariann [facility]* [id number] [facility] 2023-10-28 00:00:00 2023-10-28 00:00:00 SIRISHA Devi: [address], [address], [place] [id number] , Ph. [facility] - GC_GCBZW_Mariann anton Vitor* [id number] [facility] 2023-10-07 00:00:00 2023-10-07 00:00:00 SIRISHA Devi: [address], [address], [place] [id number] , Ph. [facility] - GC_GCBZW_Mariann Adler* [id number] [facility] 2023-10-02 00:00:00 2023-10-02 00:00:00 Anjelica Santana PA: [address], [address], [place] [id number] , Ph. [facility] - GC_GCBZW_Mariann Adler* [id number] [facility] 2023-09-30 00:00:00 2023-09-30 00:00:00 SIRISHA Devi: [address], [address], [place] [id number] , Ph. [facility] - GC_GCBZW_Mariann anton Adler* [id number] [facility] 2022-06-16 21:08:00 2022-06-17 00:34:00 Emergency X THADDEUS ELIZALDEYUAN [facility] ERT [id number] [facility] 2022-06-16 21:08:00 2022-06-17 00:34:00 Emergency Carlos Elizalde Yanira [facility] [id number] 350.1.13.10 4.2.7.2.686 [id number] [facility] 2021-11-15 00:00:00 2021-11-15 00:00:00 Telephone Brenda Martínez [facility] 1.840.114 350.1.13.10 4.2.7.2.686 [id number] [facility] 2021-11-14 14:00:00 2021-11-14 14:29:58 Outpatient R FLOR [facility] [id number] [facility] 2021-11-14 14:00:00 2021-11-14 14:20:00 Urgent Care [facility] 1.840.114 350.1.13.10 4.2.7.2.686 [id number] [facility] 2021-11-14 00:00:00 2021-11-14 00:00:00 Orders Only Doctor Unassigned, [place] [facility] 1.840.114 350.1.13.10 4.2.7.2.686 [id number] [facility] 2021-10-11 14:20:00 2021-10-11 14:44:09 Outpatient R GABBY STILES [facility] [id number] [facility] 2021-10-11 14:20:00 2021-10-11 14:44:09 Urgent Care Gabby Stiles T[facility] 1.840.114 350.1.13.10 4.2.7.2.686 [id number] [facility] 2021-10-11 14:20:00 2021-10-11 14:44:09 Outpatient R GABBY STILES [facility] [id number] [facility] 2021-10-11 00:00:00 2021-10-11 00:00:00 Orders Only Doctor Unassigned, [place] [facility] [id number] 350.1.13.10 4.2.7.2.686 [id number] [facility] 2021-09-05 13:00:00 2021-09-05 13:00:00 Outpatient R ADRIANE ENGLAND [facility] [id number] [facility] 2021-06-07 00:00:00 2021-06-07 00:00:00 Telephone Jasmin Pyle [facility] 1.840.114 350.1.13.10 4.2.7.2.686 [id number] [facility] 2021-06-05 14:15:00 2021-06-05 14:30:00 Laboratory Only Only, Stephen Aguirre [facility] 1..840.114 350.1.13.10 4.2.7.2.686 [id number] [facility] 2021-06-05 14:15:00 2021-06-05 14:27:42 Outpatient R STEPHEN SHEIKH [facility] [id number] [facility] 2021-06-05 14:15:00 2021-06-05 14:15:00 [facility] [id number] 2021-05-03 15:00:00 2021-05-03 15:57:50 Outpatient R ADRIANE ENGLAND [facility] [id number] [facility] 2021-05-03 15:00:00 2021-05-03 15:57:50 Office Visit Adriane England [facility] 1..840.114 350.1.13.10 4.2.7.2.686 [id number] [facility] 2021-05-03 15:00:00 2021-05-03 15:57:50 Outpatient R ADRIANE NEGLAND [facility] [id number] [facility] 2021-04-24 15:20:00 2021-04-24 18:23:19 Outpatient R MILAGRO RAY [facility] [id number] [facility] 2021-04-24 15:20:00 2021-04-24 18:23:19 Outpatient R MILAGRO RAY [facility] [id number] [facility] 2021-04-24 15:22:18 2021-04-24 15:42:18 Urgent Care Milagro Ray Unknown, Attending [facility] 1.2.840.114 350.1.13.10 4.2.7.2.686 [id number] [facility] 2021-04-24 00:00:00 2021-04-24 00:00:00 Orders Only Doctor Unassigned, [place] [facility] 1..840.114 350.1.13.10 4.2.7.2.686 [id number] [facility] 2020-12-17 11:20:00 2020-12-17 11:48:42 Outpatient R GABBY STILES [facility] [id number] [facility] 2020-12-17 11:20:00 2020-12-17 11:20:00 Outpatient R GOGABBY [facility] [id number] [facility] 2020-12-17 10:20:00 2020-12-17 10:20:00 Outpatient R GOGABBY [facility] [id number] [facility] 2020-12-16 15:30:00 2020-12-16 15:30:00 Outpatient R EAGLE ADRIANE [facility] [id number] [facility] 2020-10-25 11:00:00 2020-10-25 11:00:00 Outpatient R ADRIANE ENGLAND [facility] [id number] [facility] 2020-10-07 10:00:00 2020-10-07 10:00:00 Outpatient R EAGLE ADRIANE [facility] [id number] [facility] 2020-09-23 10:00:00 2020-09-23 10:00:00 Outpatient R VIKI, LEROY [facility] [id number] [facility] 2020-09-09 10:30:00 2020-09-09 10:30:00 Outpatient R ADRIANE ENGLAND [facility] [id number] [facility] 2020-08-31 10:10:00 2020-08-31 10:10:00 Outpatient [facility] [id number] [facility] 2020-08-23 13:00:00 2020-08-23 13:00:00 Outpatient R ADRIANE ENGLAND [facility] [id number] [facility] 2020-08-02 08:00:00 2020-08-02 08:00:00 [facility] [id number] [facility] 2020-07-20 16:00:00 2020-07-20 16:00:00 Outpatient [facility] [id number] [facility] 2020-07-11 14:07:01 2020-07-11 14:40:03 Nurse Visit Nurse, [facility] [place] [id number] 350.1.13.10 4.2.7.2.686 [id number] 2020-07-11 14:00:00 2020-07-11 14:00:00 Outpatient R [facility] [id number] [facility] 2020-06-30 00:00:00 2020-06-30 00:00:00 Telephone Adriane England [facility] 12.840.114 350.1.13.10 4.2.7.2.686 [id number] 2020-06-26 05:40:00 2020-06-28 19:30:00 Hospital Encounter AdAdriane reece [facility] 1.2.840.114 350.1.13.10 4.2.7.2.686 [id number] 2020-06-28 11:15:00 2020-06-28 11:15:00 Outpatient R [facility] [id number] [facility] 2020-06-21 16:04:12 2020-06-21 16:59:00 Routine Visit AdAdriane [facility] 1.2.840.114 350.1.13.10 4.2.7.2.686 [id number] 2020-06-21 16:00:00 2020-06-21 16:00:00 Outpatient R MARIOLACELINA ADRIANE [facility] [id number] [facility] 2020-06-14 16:12:46 2020-06-14 17:34:28 Routine Visit Adcelina, Adriane [facility] 1.2.840.114 350.1.13.10 4.2.7.2.686 [id number] 2020-06-14 16:15:00 2020-06-14 16:15:00 Outpatient R MARIOLACELINA ADRIANE [facility] [id number] [facility] 2020-06-01 11:30:00 2020-06-01 11:30:00 Outpatient R EAGLE ADRIANE [facility] [id number] [facility] 2020-05-31 11:30:00 2020-05-31 11:30:00 Outpatient R ERLIN RADU [facility] [id number] [facility] 2020-05-17 16:00:00 2020-05-17 16:00:00 Outpatient R [facility] [id number] [facility] 2020-05-03 16:15:00 2020-05-03 16:15:00 Outpatient R [facility] [id number] [facility] 2020-04-28 13:00:00 2020-04-28 13:00:00 Outpatient R [facility] [id number] [facility] 2020-04-19 11:00:00 2020-04-19 11:00:00 Outpatient R ADRIANE ENGLAND [facility] [id number] [facility] 2020-04-18 13:00:00 2020-04-18 13:00:00 Outpatient R ADRIANE ENGLAND [facility] [id number] [facility] 2020-03-30 11:30:00 2020-03-30 11:30:00 Outpatient R ADRIANE ENGLAND [facility] [id number] [facility] 2020-03-03 15:00:00 2020-03-03 15:00:00 Outpatient R [facility] [id number] [facility] 2020-03-02 13:30:00 2020-03-02 13:30:00 Outpatient R ADRIANE ENGLAND [facility] [id number] [facility] 2020-03-01 16:00:00 2020-03-01 16:00:00 Outpatient R DARIANE ENGLAND [facility] [id number] [facility] 2020-02-29 16:15:00 2020-02-29 16:15:00 Outpatient R [facility] [id number] [facility] 2020-02-08 13:00:00 2020-02-08 13:00:00 Outpatient P [facility] [id number] [facility] 2020-02-03 15:15:00 2020-02-03 15:15:00 Outpatient R [facility] [id number] [facility] 2020-02-02 13:00:00 2020-02-02 13:00:00 Outpatient R ADRIANE ENGLAND [facility] [id number] [facility] 2020-02-01 15:30:00 2020-02-01 15:30:00 Outpatient R AUGUSTUS ETIENNE [facility] [id number] [facility] 2020-01-06 11:30:00 2020-01-06 11:30:00 [facility]patient [facility] [id number] [facility] 2020-01-05 16:30:00 2020-01-05 16:30:00 Outpatient R ADRIANE ENGLAND [facility] [id number] [facility] 2019-12-09 14:30:00 2019-12-09 14:30:00 Outpatient R [facility] [id number] [facility] 2019-12-08 14:00:00 2019-12-08 14:00:00 Outpatient R ADRIANE ENGLAND [facility] [id number] [facility] 2019-07-08 00:00:00 2019-07-08 00:00:00 Outpatient R LV MAST [facility] [id number] [facility] 2019-06-22 15:19:11 2019-06-22 23:59:00 Outpatient R LV MAST [facility] [id number] [facility] Results Test Description Test Time Test Comments Results Result Co mments Source [facility] Neisseria gonorrhoeae rRNA panel - Specimen by ALEX with probe [id number] 00:00:00* Test Item Value Reference Range Interpretation Comme nts aptima combo 2 swab (CT) (te st code = aptima combo 2 swab (CT)) CT NEG negative aptima combo 2 swab (GC) (te st code = aptima combo 2 swab (GC)) GC NEG negative [facility] [Presence] in [id number] 00:00:00* Test Item Value Reference Range Interpretation Comme nts hep. C Ab. (test code = hep. C Ab.) NON-REACTIVE [facility]-reactive [facility]+HIV1 p24 Ag [Presence] in Serum or Plasma by [id number] 00:00:00* Test Item Value Reference Range Interpretation Comme nts HIV Ag/Ab (test code = HIV Ag/Ab) NON-REACTIVE non-reactive HIV-1 P24 Ag (test code = HI V-1 P24 Ag) NON-REACTIVE non-reactive HIV 1+2 Ab (test code = HIV 1+2 Ab) NON-REACTIVE non-reactive [facility] [Presence] in [id number] 00:00:00* Test Item Value Reference Range Interpretation Comme nts hep. B surf. Ag (test code = hep. B surf. Ag) NON-REACTIVE non-reactive [facility] Medical[facility]agin Ab [Presence] in Serum by [id number] 00:00:00* Test Item Value Reference Range Interpretation Comme nts RPR (test code = RPR) NON-REACTIVE non-reactive [facility] Medicalpap, LB + reflex to HR HPV if [id number] 00:00:00* Test Item Value Reference Range Interpretation Comme nts LMP date: (test code = LMP date:) 09/12/2023 Pap, liquid-based (test code = Pap, liquid-based) ASC-US nilm A source (liquid-based cytology): (test code = source (liquid-based cytology):) CERVICAL (WHICH INCLUDES ENDOCERVICAL) [facility] Medicalinfectious disease [id number] 12:39:00Abnormal StatusPrivia MedicalAG HEPATITIS B [id number] 14:32:00* Test Item Value Reference Range Interpretation Comme nts AG HEPATITIS B SURFACE (test code = HBSAG) NONREACTIVE NONREACTIVE AB HEPATITIS C [id number] 14:32:00* Test Item Value Reference Range Interpretation Comme nts AB HEPATITIS C (test code = HCVAB) NONREACTIVE NONREACTIVE SIGNAL TO CUTOFF (test code = CUTOFF) <0.02 <0.80 N AB [id number] 14:32:00* Test Item Value Reference Range Interpretation Comme nts AB TREPONEMA (test code = TREPAB) NONREACTIVE NONREACTIVE AG HEPATITIS B [id number] 13:39:00* Test Item Value Reference Range Interpretation Comme nts AG HEPATITIS B SURFACE (test code = HBSAG) NONREACTIVE NONREACTIVE AB HEPATITIS C [id number] 13:39:00* Test Item Value Reference Range Interpretation Comme nts AB HEPATITIS C (test code = HCVAB) NONREACTIVE SIGNAL TO CUTOFF (test code = CUTOFF) <0.80 AB [id number] 13:39:00* Test Item Value Reference Range Interpretation Comme nts AB TREPONEMA (test code = TREPAB) NONREACTIVE NONREACTIVE URINALYSIS [id number] 13:33:00* Test Item Value Reference Range Interpretation [...] = MUCU) RARE NONE SEEN CBC W/AUTO [id number] 13:03:00* Test Item Value Reference Range Interpretation [...] PLTMR) NORMAL NORMAL - MRI PELVIS W/O [id number] 21:41:00Patient Name: RAAD BERKOWITZ Unit No: [id number] EXAMS: CPT CODE: [id number] MRI PELVIS W/O CONTRAST [id number] PROCEDURE: MRI ABDOMEN WITHOUT CONTRAST INDICATION: 19-year-old [...] Orig Print D/T: S: 11/15/2019 (2143) [facility] NAME: RAAD BERKOWITZ adiology Department PHYS: DREA Alo Gonsalez [address] : 2000 AGE: 19 SEX: F [place], [place] [address] LOC: [id number] PHONE #: [phone] EXAM DATE: 11/15/2019STATUS: ADM IN FAX #: [phone] RAD NO: Page 1 Signed Report
--- NOTE | 2024-05-27 20:57 | EDPHYS ---
Physician Documentation [facility] Name: Edson Juarez Age: 23 yrs Sex: Female : 2000 Arrival Date: 05/27/2024 Time: 19:07 Bed 9 Private MD: ED Physician Romain Lowery HPI: 05/27 22:09 This 23 yrs old Female presents to ER via Ambulatory with complaints of Fell on cactus. kb 22:09 Patient is a 23-year-old female who presents for puncture wounds with foreign bodies to kb right calf after walking backwards into a cinnamon cactus. States this occurred about 5 hours ago. States she has been trying to remove all of the thorns herself but has been unsuccessful.. Historical: - Allergies: 20:21 Morphine; jb4 - PMHx: 20:21 None; jb4 - PSHx: 20:21 [place] Tooth Extraction; jb4 - Immunization history:: Adult Immunizations up to date. - Infectious Disease History:: Denies. - Social history:: Smoking status: Reported history of juuling and/or vaping. Patient uses alcohol, street drugs, marijuana. ROS: 22:07 Constitutional: As per HPI kb Exam: 22:07 Constitutional: This is a well developed, well nourished patient who is awake, alert, kb and in no acute distress. Head/Face: Normocephalic, atraumatic. ENT: Moist Mucous membranes Cardiovascular: Regular rate Respiratory: Respirations even and unlabored. No increased work of breathing. Talking in full sentences MS/ Extremity: Pulses equal, no cyanosis. Neurovascular intact. Full, normal range of motion. Neuro: Awake and alert, GCS 15, oriented to person, place, time, and situation. 22:07 Skin: Several tiny puncture wounds to right calf with cactus thorns in place. Vital Signs: 19:30 BP 136 / 87; Pulse 88; Resp 16; Temp 98.3(O); Pulse Ox 98% on R/A; Weight 72.57 kg (R); jb4 Height 4 ft. 11 in. (R); Pain 1/10; 19:30 Body Mass Index 32.32 (72.57 kg, 149.86 cm) jb4 19:30 Pain Scale: Adult jb4 MDM: 19:16 Medical Screening Exam initiated kb 22:08 Differential diagnosis: Puncture wound, foreign body, abrasion. Data reviewed: vital kb signs, nurses notes. Historians other than the Patient: Spouse/Significant Other: Significant other. Counseling: I had a detailed discussion with the patient and/or guardian regarding the historical points, exam findings, and any diagnostic results supporting the discharge/admit diagnosis, the need for outpatient follow up, a family practitioner, to return to the emergency department if symptoms worsen or persist or if there are any questions or concerns that arise at home. ED course: Tape used to remove several thorns from leg. Patient educated on wound care and watching for signs of infection.. Administered Medications: No medications were administered Disposition Summary: 05/27/24 20:56 Discharge Ordered Notes: Location: Home kb Condition: Stable kb Diagnosis - Puncture wound with foreign body of right calf s/p falling into cactus kb Followup: kb - With: Emergency Department - When: As needed - Reason: Worsening of condition Followup: kb - With: Private Physician - When: 2 - 3 days - Reason: Recheck today's complaints, Continuance of care, Re-evaluation by your physician Discharge Instructions: - Discharge Summary Sheet kb - Puncture Wound, [id number] kb Forms: - Medication Reconciliation Form kb - Antibiotic Education kb - Prescription Opioid Use kb - Patient Portal Instructions kb - Leadership Thank You Letter kb Signatures: Kathy Adler FNP-C FNP-Alec Hernandez, RN RN jb4
--- NOTE | 2024-05-27 20:57 | ER ---
Nurse's Notes [facility] Name: Edson Juarez Age: 23 yrs Sex: Female : 2000 Arrival Date: 05/27/2024 Time: 19:07 Bed 9 Private MD: Diagnosis: Puncture wound with foreign body of right calf s/p falling into cactus Presentation: 05/27 19:30 Chief complaint: Patient states: I backed into a cactus on my porch and I has some of jb4 the thorns stuck in my leg. 19:30 Coronavirus screen: At this time, the client does not indicate any symptoms associated jb4 with coronavirus-19. Ebola Screen: No symptoms or risks identified at this time. Initial Sepsis Screen: Does the patient meet any 2 criteria? No. Patient's initial sepsis screen is negative. Does the patient have a suspected source of infection? No. Patient's initial sepsis screen is negative. Risk Assessment: Do you want to hurt yourself or someone else? Patient reports no desire to harm self or others. Onset of symptoms was May 27, 2024. 19:30 Method Of Arrival: Ambulatory jb4 19:30 Acuity: JOSE F 4 jb4 Historical: - Allergies: 20:21 Morphine; jb4 - PMHx: 20:21 None; jb4 - PSHx: 20:21 [place] Tooth Extraction; jb4 - Immunization history:: Adult Immunizations up to date. - Infectious Disease History:: Denies. - Social history:: Smoking status: Reported history of juuling and/or vaping. Patient uses alcohol, street drugs, marijuana. Screenin:30 [facility] ED Fall Risk Assessment (Adult) History of falling in the last 3 months, jb4 including since admission No falls in past 3 months (0 pts) Confusion or Disorientation No (0 pts) Intoxicated or Sedated No (0 pts) Impaired Gait No (0 pts) Mobility Assist Device Used No (0 pt) Altered Elimination No (0 pt) Score/Fall Risk Level 0 - 2 = Low Risk Oriented to surroundings, Maintained a safe environment. Assessment: 19:30 General: Appears in no apparent distress. comfortable, Behavior is calm, cooperative, jb4 appropriate for age. Pain: Complains of pain in right calf Pain does not radiate. Pain currently is 3 out of 10 on a pain scale. Neuro: Level of Consciousness is awake, alert, obeys commands, Oriented to person, place, time, situation. Cardiovascular: Patient's skin is warm and dry. Respiratory: Airway is patent Respiratory effort is even, unlabored, Respiratory pattern is regular, symmetrical. Derm: Skin is intact, Skin is pink, warm \T\ dry. Musculoskeletal: Circulation, motion, and sensation intact. Range of motion: intact in all extremities. 20:30 Reassessment: Patient appears in no apparent distress at this time. Patient and/or jb4 family updated on plan of care and expected duration. Pain level reassessed. Patient is alert, oriented x 3, equal unlabored respirations, skin warm/dry/pink. Vital Signs: 19:30 BP 136 / 87; Pulse 88; Resp 16; Temp 98.3(O); Pulse Ox 98% on R/A; Weight 72.57 kg (R); jb4 Height 4 ft. 11 in. (R); Pain 1/10; 19:30 Body Mass Index 32.32 (72.57 kg, 149.86 cm) jb4 19:30 Pain Scale: Adult jb4 ED Course: 19:10 Patient arrived in ED. mr 19:10 Kathy Adler FNP-C is [facility]. kb 19:10 Romain Lowery MD is Attending Physician. kb 20:21 Triage completed. jb4 20:21 Arm band placed on right wrist. jb4 20:30 Patient has correct armband on for positive identification. Bed in low position. Call jb4 light in reach. Side rails up X 1. Provided Education on: plan of care. 21:16 No provider procedures requiring assistance completed. Patient did not have IV access jb4 during this emergency room visit. Administered Medications: No medications were administered Medication: 20:30 VIS not applicable for this client. jb4 Outcome: 20:56 Discharge ordered by . kb 21:16 Discharged to home ambulatory, jb4 21:16 Condition: stable 21:16 Discharge instructions given to patient, Instructed on discharge instructions, follow up and referral plans. Demonstrated understanding of instructions, follow-up care, 21:17 Patient left the ED. jb4 Signatures: Kathy Adler FNP-C FNP-Petra Marion, Reg Reg mr Alec Weinstein, RN RN jb4
[2024-05-27 22:06] VITALS: BP 136/87; TEMP 98.3; O2SAT 98
== END 2024-05-27 21:17 | disposition home or self-care (01) ==
LOC: ER 19:07
DX: S81.841A Puncture wound with foreign body, right lower leg, initial encounter (principal)
CPT/HCPCS: 99282